=== PATIENT | female | born 1990 | race Caucasian/White ===

== ENCOUNTER 2024-04-02 13:08 | Outpatient (OUT) | payer MEDICAID, SELFPAY ==
--- NOTE | 2024-04-02 13:25 | US_ITS ---
[place] [id number] Patient Name: EVAN FISH MRN: [id number] date: 1990 Sex: F Assigned Patient Location: US Current Patient Location: US Accession/Order Number: [id number] Exam Date: 04/02/2024 13:27 Report Date: 04/02/2024 14:43 At the request of: ROHIT ARRIAGA Procedure: US OB <= 14 weeks fetus EXAMINATION: US OB <= 14 weeks fetus HISTORY: Vaginal Bleeding COMPARISON: No relevant comparison available. FINDINGS: Meehan intrauterine gestation Placenta: Anterior Gestational sac: 6.61 cm CRL: 7.48 cm, 13 weeks 4 days Heart rate: 146 bpm The ovaries are normal in appearance Clinical age: 30 weeks 3 days Clinical BHUPENDRA: 10/05/2024 Ultrasound age: 30 weeks 4 days Ultrasound BHUPENDRA: 10/04/2024 US/US OB <= 14 weeks fetus IMPRESSION: Viable meehan intrauterine gestation measuring 13 weeks 4 days Electronically authenticated by: JAMES BHANDARI Date: 04/02/2024 14:43
== END 2024-04-02 13:09 | disposition home or self-care (01) ==
PROVIDERS: Visit Provider Midwife
DX: O46.93 Antepartum hemorrhage, unspecified, third trimester (principal); Z3A.30 30 weeks gestation of pregnancy
CPT/HCPCS: 76801

== ENCOUNTER 2024-05-15 16:49 | Outpatient (OUT) | payer MEDICAID, SELFPAY ==
--- NOTE | 2024-05-15 | US_ITS ---
[address] [address] Patient Name: EVAN FISH MRN: [id number] date: 1990 Sex: F Assigned Patient Location: US Current Patient Location: Accession/Order Number: [id number] Exam Date: 05/15/2024 17:13 Report Date: 05/16/2024 07:23 At the request of: ROHIT ARRIAGA Procedure: US OB anatomy EXAMINATION: US OB anatomy HISTORY: 2nd trimester Q26.92 COMPARISON: No relevant comparison available. TECHNIQUE: Transabdominal sonographic examination was performed for obstetrical and evaluation. FINDINGS: Number: 1 Heart Rate: 146.74 bpm H.B. /min Amniotic Fluid Volume: Subjectively normal position: Cephalic presentation, variable lie Placental Location: ANTERIOR, the placental edge is 5.6 cm from the internal os Cervix Length: 3.39 cm , closed Normal anatomy: Lateral ventricles, cerebellum, posterior fossa, nose, lips, orbits, four-chamber heart, RVOT, LVOT, diaphragm, stomach, kidneys, abdominal cord insertion, bladder, umbilical arteries, three-vessel cord, spine, extremities BIOMETRY: BPD: 4.81 cm; 20 weeks 4 days; 86.10 % HC: 17.47 cm; 20 weeks 0 days; 62.80 % AC: 15.11 cm; 20 weeks 2 days; 70.60 % FL: 3.38 cm; 20 weeks 4 days; 78.20 % EFW:352.60 g; 89.10 %, 12 ounces FL/AC: 22.36 FL/BPD: 70.21 HC/AC: 1.16 GESTATIONAL AGE: Age by EDC: 19 weeks 4 days BHUPENDRA by EDC: 2024-10-05 Age by current US: 20 weeks 3 days BHUPENDRA by current US: 2024-09-29 US/US OB anatomy IMPRESSION: Normal anatomy scan *Reference: [facility] Practice Guideline for the performance of Obstetric Ultrasound Examinations, February 11, 2007. Electronically authenticated by: JAMES BHANDARI Date: 05/16/2024 07:23
--- OUTSIDE RECORDS SUMMARY | 2024-05-15 16:54 | XMS_ITS | CCD ---
Author Organization [facility] Care Team Providers Care [employer] Name Role Phone REQUEST, DR PACO LISTED Admitting Unavaila ble REQUEST, DR ANTONIO LISTED Attending Unavaila ble REQUEST, DR ANTONIO LISTED Consulting Unavaila ble BRITTANY ., DR STONE Admitting Unavailable BRITTANY ., DR STONE Attending Unavailable BRITTANY ., DR STONE Consulting Unavailable BRITTANY ., DR STONE Admitting Unavailable BRITTANY ., DR STONE Attending Unavailable BRITTANY ., DR STONE Consulting Unavailable PABLO DONG Admitting Unavailable PABLO DONG Attending Unavailable PROVIDENCE, DR JAMES Aquino Consulting Unavailable PABLO DONG Consulting Unavailable Unavailable Primary Care Provider Unavailjohanna e Unallocated , Noms Provider Primary Care Provi helena ROHIT BETHEA Attending Unavailable ROHIT BETHEA Referring Unavailable ROHIT BETHEA Referring Unavailable ROHIT BETHEA Attending Unavailable Medications Current Medications Medication Drug Class(es) Dates Sig (Normalized) Sig (Original) MV-Min-Fe Fum-FA-DHA ( 1 PO) (8 sources) MV-Min- Fe Fum-FA-DHA ( 1 PO) Take by mouth Active Completed/Discontinued Medications Medication Drug Class(es) Dates Sig (Normalized) Sig (Original) ondansetron 8 mg disintegrating oral tablet (8 sources) Serotonin-3 Receptor Antagonist Start: 03-20-2024 End: 05-07-2024 take 1 tablet by mouth every eight hours for nausea ondansetron ODT (Zofran-ODT) 8 MG disintegrating tablet Indications: Nausea/vomiting in Take 1 tablet (8 mg) by mouth every 8 (eight) hours if needed for nausea or vomiting 20 tablet 1 03/20/2024 04/07/2024 Discontinued (Reorder) Problems Problem Classification Problem Date Documented Date Episodic/Chronic Headache; including migraine (4 sources) Headache; including migraine; Translations: [HEADACHE UNSPECIFIED] Onset: 05-15-2022 Immunizations and screening for infectious disease (1 source) Encounter for screening for human papillomavirus (HPV); Translations: [ENC SCREENING HUMAN PAPILLOMAVIRUS] Onset: 07-14-2022 Episodic Other complications of (1 source) Abdominal pain in ; Translations: [Other specified related conditions, first trimester] 03-24-2024 Episodic Other complications of (2 sources) Finding related to ; Translations: [ related conditions, unspecified, second trimester] 04-24-2024 Episodic Other complications of (2 sources) Vomiting of , unspecified; Translations: [Unspecified vomiting of , unspecified as to episode of care or not applicable] 03-20-2024 Episodic Other endocrine disorders (4 sources) Polycystic ovarian syndrome; Translations: [POLYCYSTIC OVARIAN SYNDROME] Onset: 03-27-2022 Chronic Other and delivery including normal (5 sources) Normal ; Translations: [Encounter for supervision of normal first , first trimester] 03-24-2024 Episodic Other screening for suspected conditions (not mental disorders or infectious disease) (4 sources) Encounter for screening for malignant neoplasm of cervix; Translations: [ENC SCREENING MALIG NEOPLASM CERV] Onset: 07-11-2022 Episodic Results Test Name Value Interpretation Reference Range Facility US for pregnancyon TITLE OF EXAM: OB Ultrasound: REASON FOR EXAM: Amenorrhea. TECHNIQUE: Grayscale imaging is performed. Measurements: heart rate: 149 bpm Cervix Length: 2.9 cm BHUPENDRA: 10/05/2024 CLINICAL SUMMARY: A single intrauterine is noted in breech presentation. heart is observed with a heart rate of 149 BPM. Placenta is located anteriorly. Placenta is Grade 0/III Limited study. Full anatomical survey not performed. Dictated and transcribed 03/25/24d This report has been electronically signed and approved by the interpreting radiologist. Lee Robles MD - 03/25/2024 TITLE OF EXAM: OB Ultrasound: REASON FOR EXAM: Amenorrhea. TECHNIQUE: Grayscale imaging is performed. Measurements: heart rate: 149 bpm Cervix Length: 2.9 cm BHUPENDRA: 10/05/2024 CLINICAL SUMMARY: A single intrauterine is noted in breech presentation. heart is observed with a heart rate of 149 BPM. Placenta is located anteriorly. Placenta is Grade 0/III Limited study. Full anatomical survey not performed. Dictated and transcribed 03/25/24d This report has been electronically signed and approved by the interpreting radiologist. [facility] US for pregnancyOrdered By: Lee Yost on 03-25-2024 [facility] Work Phone: US OB LIMITED 1+ FETUSESon 1 05-24-2023 US OB LIMITED 1+ FETUSES TITLE OF EXAM: OB Ultrasound: REASON FOR EXAM: Amenorrhea. TECHNIQUE: Grayscale imaging is performed. Measurements: heart rate: 149 bpm Cervix Length: 2.9 cm BHUPENDRA: 10/05/2024 CLINICAL SUMMARY: A single intrauterine is noted in breech presentation. heart is observed with a heart rate of 149 BPM. Placenta is located anteriorly. Placenta is Grade 0/III Limited study. Full anatomical survey not performed. Dictated and transcribed 03/25/24dpd This report has been electronically signed and approved by the interpreting radiologist. Normal Not Available US for pregnancyon Radiology Study observation (narrative) [facility] US OB < 14 WEEKS EARLYon US OB < 14 WEEKS EARLY TITLE OF EXAM: OB Ultrasound: REASON FOR EXAM: Amenorrhea. TECHNIQUE: Grayscale imaging is performed. Measurements: heart rate: 160 bpm Sac: 5.5 cm CRL: 5.3 cm GA for sonogram: 12.0 wk (11.0-12.9) Cervix Length: 3.7 cm BHUPENDRA: 10/05/2024 CLINICAL SUMMARY: Endovaginal exam was performed. Early intrauterine is seen with positive cardiac activity. Yolk sac is identified and within normal limits. Four chamber heart is observed with a heart rate of 160. Uterus and adnexae: Right ovarian corpus luteum measuring 2.7 x 2.7 x 2.8 cm Limited study. Full anatomical survey not performed. IMPRESSION: LMP is accurate. Dictated and transcribed 03/20/24dpd This report has been electronically signed and approved by the interpreting radiologist. Normal Not Available PAP ACOG PANEL 2: 30 to 65on 07-19-2022 . . Normal [facility] Comment on above: Result Comment: Perf ormed at: WB Performed By: #### [id number] #### [facility] [address] [address] [address] Elise Arboleda Age Gdln ACOG Testing 30-65 Normal [facility] Comment on above: Performed By: #### [id number] #### [facility] [address] [address] [address] Elise Arboleda DIAGNOSIS: Comment Normal [facility] Comment on above: Result Comment: NEGA TIVE FOR INTRAEPITHELIAL LESION OR MALIGNANCY. Performed at: WB Performed By: #### [id number] #### [facility] [address] [address] [address] Elise Arboleda HPV Aptima Negative Normal Negative [facility] Comment on above: Result Comment: This nucleic acid amplification test detects fourteen high-risk HPV types (16,18,31,33,35,39,45,51,52,56,58,59,66,68) without differentiation. Performed at: =G Performed By: #### [id number] #### [facility] [address] [address] [address] Elise Arboleda HPV Genotype Reflex Comment Normal [facility] Comment on above: Result Comment: Crit eria not met, HPV Genotype not performed. Performed at: WB Performed By: #### [id number] #### [facility] [address] [place] [address] Dr. Elise Arboleda Methodology: Comment Normal [facility] Comment on above: Result Comment: This liquid based ThinPrep(R) pap test was screened with the use of an image guided system. Performed at: WB Performed By: #### [id number] #### [facility] [address] [place] [address] Dr. Elise Arboleda Note: Comment Normal [facility] Comment on above: Result Comment: The Pap smear is a screening test designed to aid in the detection of premalignant and malignant conditions of the uterine cervix. It is not a diagnostic procedure and should not be used as the sole means of detecting cervical cancer. Both false-positive and false-negative reports do occur. . Performed at: WB Performed By: #### [id number] #### [facility] [address] [place] [address] Dr. Elise Arboleda Performed by: Comment Normal [facility] Comment on above: Result Comment: Louis De Los Santos, Supervisor [employer] (ASCP) Performed at: WB Performed By: #### [id number] #### [facility] [address] [place] [address] Dr. Elise Arboleda Specimen adequacy: Comment Normal [facility] Comment on above: Result Comment: Sati sfactory for evaluation. Endocervical and/or squamous metaplastic cells (endocervical component) are present. Performed at: WB Performed By: #### [id number] #### [facility] [address] [place] [address] HEAD WO CONon 05-15-2022 CT HEAD WO CON EXAMINATION: CT HEAD WO CON, 05/15/2022 12:37 PM EST HISTORY: HEADACHE COMPARISON: None. TECHNIQUE: CT scan of the head was performed without IV contrast. CT dose reduction technique was used, including Automated Exposure Control. FINDINGS: BRAIN: No edema, hemorrhage, mass, acute infarction, or inappropriate atrophy. CSF SPACES: No hydrocephalus, subarachnoid hemorrhage, or mass. Appropriate for age. SKULL: No fracture, mass, or other significant visible lesion. SINUSES: No significant mucosal thickening or fluid on the limited views. ORBITS: No appreciable abnormality on the limited views. OTHER: Negative IMPRESSION: No acute intracranial abnormality Electronically authenticated by: JAMES BHANDARI Date: 2022-05-15 13:15 Normal [facility] ARNALDO - QUALITATIVEo n 05-10-2022 , QUAL Negative Normal NEGATIVE [facility] Comment on above: Performed By: #### D ATPREG #### [facility] [address] [place] [address] Dr. Elise Arboleda CBC AUTO DIFFon 03-27-2022 BASO # 0.0 103/ul Normal 0.0-0.1 [facility] Comment on above: Performed By: #### C BC #### [facility] [address] [place] [address] Dr. Elise Arboleda Basophils/100 WBC (Bld) 0.6 % Normal 0.2-2.0 [facility] Comment on above: Performed By: #### C BC #### [facility] [address] [place] [address] Dr. Elise Arboleda EO # 0.1 103/ul Normal 0.0-0.7 [facility] Comment on above: Performed By: #### C BC #### [facility] [address] [place] [address] Dr. Elise Arboleda Eosinophils/100 WBC (Bld) 1.6 % Normal 0.9-7.0 [facility] Comment on above: Performed By: #### C BC #### [facility] [address] [place] [address] Dr. Elise Arboleda Erythrocyte distribution width (RBC) [Ratio] 12.3 % Normal 11.0-15.0 [facility] Comment on above: Performed By: #### C BC #### [facility] [address] [place] [address] Dr. Elise Arboleda Hematocrit (Bld) [Volume fraction] 38.4 % Normal 36.0-48.0 [facility] Comment on above: Performed By: #### C BC #### [facility] [address] [place] [address] Dr. Elise Arboleda Hemoglobin (Bld) [Mass/Vol] 12.9 g/dL Normal 12.0-16.0 [facility] Comment on above: Performed By: #### C BC #### [facility] [address] [place] [address] Dr. Elise Arboleda IG # 0.01 10e3/ul Normal 0.00-0.03 [facility] Comment on above: Performed By: #### C BC #### [facility] [address] [place] [address] Dr. Elise Arboleda IG % 0.1 % Normal 0.0-0.5 [facility] Comment on above: Performed By: #### C BC #### [facility] [address] [place] [address] Dr. Elise Arboleda LYMPH # 3.5 103/ul Normal 1.2-3.8 [facility] Comment on above: Performed By: #### C BC #### [facility] [address] [place] [address] Dr. Elise Arboleda Lymphocytes/100 WBC (Bld) 49.4 % Normal 20.5-60.0 [facility] Comment on above: Performed By: #### C BC #### [facility] [address] [place] [address] Dr. Elise Arboleda MANUAL DIFF REQ NO Normal [facility] Comment on above: Performed By: #### C BC #### [facility] [address] [place] [address] Dr. Elise Arboleda MCH (RBC) [Entitic mass] 30.6 pg Normal 26.7-34.0 [facility] Comment on above: Performed By: #### C BC #### [facility] [address] [place] [address] Dr. Elise Arboleda MCHC (RBC) [Mass/Vol] 33.6 g/dL Normal 29.9-35.2 [facility] Comment on above: Performed By: #### C BC #### [facility] [address] [place] [address] Dr. Elise Arboleda MCV (RBC) [Entitic vol] 91.2 fL Normal 81.0-99.0 [facility] Comment on above: Performed By: #### C BC #### [facility] [address] [place] [address] Dr. Elise Arboleda MONO # 0.5 103/ul Normal 0.3-0.8 [facility] Comment on above: Performed By: #### C BC #### [facility] [address] [place] [address] Dr. Elise Arboleda Monocytes/100 WBC (Bld) 6.6 % Normal 1.7-12.0 [facility] Comment on above: Performed By: #### C BC #### [facility] [address] [place] [address] Dr. Elise Arboleda NEUT # 2.9 103/ul Normal 1.4-6.5 [facility] Comment on above: Performed By: #### C BC #### [facility] [address] [place] [address] Dr. Elise Arboleda Neutrophils/100 WBC (Bld) 41.7 % Critically low 43.0-75.0 [facility] Comment on above: Performed By: #### C BC #### [facility] [address] [place] [address] Dr. Elise Arboleda Platelet mean volume (Bld) [Entitic vol] 11.8 fL Normal 9.5-13.5 [facility] Comment on above: Performed By: #### C BC #### [facility] [address] [place] [address] Dr. Elise Arboleda PLT 258 103/ul Normal 150-450 [facility] Comment on above: Performed By: #### C BC #### [facility] [address] [place] [address] Dr. Elise Arboleda RBC 4.21 106/ul Normal 4.20-5.40 [facility] Comment on above: Performed By: #### C BC #### [facility] [address] [place] [address] Dr. Elise Arboleda WBC 7.0 103/ul Normal 4.0-11.0 [facility] Comment on above: Performed By: #### C BC #### [facility] [address] [place] [address] Dr. Elise Arboleda FREE T4on 03-27-2022 Free T4 [Mass/Vol] 1.06 ng/dL Normal 0.76-1.46 [facility] Comment on above: Performed By: #### F T4 #### [facility] [address] [place] [address] Dr. Elise Arboleda GLYCOHEMOGLOBIN A1Con 2021 ADA RECOMMENDATION SEE BELOW Normal [facility] Comment on above: Result Comment: ADA RECOMMENDED LIMIT 4.0 - 6.0 ADA THERAPEUTIC TARGET < 7.0 ACTION SUGGESTED > 7.0 Performed By: #### A 1C #### [facility] [address] [place] [address] Dr. Elise Arboleda Glucose [Mass/Vol] 105 mg/dL Normal [facility] Comment on above: Performed By: #### A 1C #### [facility] [address] [address] [address] Elise Arboleda HbA1c (Bld) [Mass fraction] 5.3 % Normal 4.5-6.2 [facility] Comment on above: Performed By: #### A 1C #### [facility] [address] [place] [address] Dr. Elise Arboleda TSHon 03-27-2022 TSH 0.837 uIU/mL Normal 0.358-3.740 [place] Comment on above: Performed By: #### T SH #### [facility] [address] [place] [address] Dr. Elise Arboleda Vital Signs Date Time Vital Sign Value Performing Clinician Faci lity 04-24-2024 09:43-0500 Body mass index (BMI) [Ratio] 26.96 kg/m2 Rohit Bethea CNM Work Phone: [facility] 04-24-2024 09:43-0500 Body weight 73.48 kg Rohit Bethea CNM Work Phone: [facility] 04-24-2024 09:43-0500 Diastolic blood pressure 80 mm[Hg] Rohit Bethea CNM Work Phone: [facility] 04-24-2024 09:43-0500 Systolic blood pressure 120 mm[Hg] Rohit Bethea CNM Work Phone: [facility] 03-20-2024 15:41-0500 Body mass index (BMI) [Ratio] 27.12 kg/m2 Rohit Bethea CNM Work Phone: [facility] 03-20-2024 15:41-0500 Body weight 73.94 kg Rohit Bethea CNM Work Phone: [facility] Encounters Encounter Date Encounter Type Care Provider Facility Start: 04-24-2024 End: 04-24-2024 Bamboo flowsheet Rohit Bethea CNM Work Phone: [facility] Start: 04-24-2024 End: 04-24-2024 Bamboo flowsheet Rohit L Floro CNM Work Phone: [facility] Start: 04-24-2024 End: 04-24-2024 ambulatory ROHIT L FLORO Not Available Start: 04-24-2024 End: 04-24-2024 Office outpatient visit 15 minutes Rohit L Floro CNM Work Phone: [facility] Comment on above: Encounter for prenat al care of first , second trimester (Primary Dx); related condition in second trimester Start: 04-22-2024 End: 04-22-2024 Telephone encounter Rohit L Floro CNM Work Phone: [facility] Start: 04-02-2024 End: 04-02-2024 Telephone encounter Rohit L Floro CNM Work Phone: [facility] Start: 03-24-2024 End: 03-24-2024 ambulatory ROHIT L FLORO Not Available Start: 03-24-2024 End: 03-24-2024 Telephone encounter Rohit L Floro CNM Work Phone: [facility] Start: 03-20-2024 End: 03-20-2024 ambulatory ROHIT L FLORO Not Available Start: 03-20-2024 End: 03-20-2024 Office outpatient visit 15 minutes Rohit L Floro CNM Work Phone: [facility] Comment on above: GA: 11w4d Start: 03-20-2024 End: 03-20-2024 Bamboo flowsheet Rohit L Floro CNM Work Phone: [facility] Start: 03-20-2024 End: 03-20-2024 Bamboo flowsheet Rohit L Floro CNM Work Phone: [facility] Start: 06-25-2023 Chart abstracting Bertha Alcantara DO Work Phone: [facility] Start: 07-11-2022 End: 07-11-[address] BERTHA ALCANTARA . Facility: Start: 05-15-2022 End: 05-15-2022 ambulatory PABLO Majano LETITIA Facility: Start: 05-10-2022 End: 05-11-2022 ambulatory NONE LISTED REQUEST Facility: Start: 03-27-2022 End: 03-28-[address] BERTHA ALCANTARA . Facility: Plan of Treatment Date Care Activity Detail Author Start: 05-22-2024 End: 05-22-2024 Patient encounter procedure 05/22/2024 9:30 AM EST Routine [facility] [address] [place] [address] Rohit Bethea, KRISTINE[address] [id number] [facility] Start: 04-24-2024 End: 04-24-2025 US for US OB 14+ weeks anatomy scan Imaging Routine related condition in second trimester Expected: 04/24/2024, Expires: 04/24/2025 [facility] Work Phone: Comment on above: Expected: 04/24/2024 , Expires: 04/24/2025 Start: 04-24-2024 End: 04-24-2024 Patient encounter procedure 04/24/2024 9:30 AM EST Routine [facility] [address] [place] [address] Rohit Bet[address] [address] [facility] Start: 03-24-2024 End: 03-24-2025 ABO/Rh ABO/Rh Lab Routine Encounter for supervision of normal first , first trimester Expected: 03/24/2024 (Approximate), Expires: 03/24/2025 [facility] Comment on above: Expected: 03/24/2024 (Approximate), Expires: 03/24/2025 Start: 03-24-2024 End: 03-24-2025 Antibody screen Antibody screen Lab Routine Encounter for supervision of normal first , first trimester Expected: 03/24/2024 (Approximate), Expires: 03/24/2025 [facility] Comment on above: Expected: 03/24/2024 (Approximate), Expires: 03/24/2025 Start: 03-24-2024 End: 03-24-2025 Bacteria identified in Urine by Culture Urine culture Microbiology Routine Encounter for supervision of normal first , first trimester Expected: 03/24/2024 (Approximate), Expires: 03/24/2025 [facility] Comment on above: Expected: 03/24/2024 (Approximate), Expires: 03/24/2025 Start: 03-24-2024 End: 03-24-2025 CBC panel - Blood by Automated count CBC Lab Routine Encounter for supervision of normal first , first trimester Expected: 03/24/2024 (Approximate), Expires: 03/24/2025 [facility] Comment on above: Expected: 03/24/2024 (Approximate), Expires: 03/24/2025 Start: 03-24-2024 End: 03-24-2025 DRUG TOX MONITORIGN 6 W/ CONF,URINE DRUG TOX MONITORIGN 6 W/ CONF,URINE Lab Routine Encounter for supervision of normal first , first trimester Expected: 03/24/2024 (Approximate), Expires: 03/24/2025 [facility] Comment on above: Expected: 03/24/2024 (Approximate), Expires: 03/24/2025 Start: 03-24-2024 End: 03-24-2025 Hemoglobin A1c/Hemoglobin.total in Blood Hemoglobin A1c Lab Routine Encounter for supervision of normal first , first trimester Expected: 03/24/2024 (Approximate), Expires: 03/24/2025 [facility] Comment on above: Expected: 03/24/2024 (Approximate), Expires: 03/24/2025 Start: 03-24-2024 End: 03-24-2025 Hepatitis B virus surface Ag [Presence] in Serum or Plasma by Immunoassay Hepatitis B surface antigen Lab Routine Encounter for supervision of normal first , first trimester Expected: 03/24/2024 (Approximate), Expires: 03/24/2025 [facility] Work Phone: Comment on above: Expected: 03/24/2024 (Approximate), Expires: 03/24/2025 Start: 03-24-2024 End: 03-24-2025 Hepatitis C virus Ab [Presence] in Serum or Plasma by Immunoassay Hepatitis C antibody Lab Routine Encounter for supervision of normal first , first trimester Expected: 03/24/2024 (Approximate), Expires: 03/24/2025 [facility] Comment on above: Expected: 03/24/2024 (Approximate), Expires: 03/24/2025 Start: 03-24-2024 End: 03-24-2025 HIV-1/HIV-2 antigen/antibody combination immunoassay HIV-1 and HIV-2 antibodies Lab Routine Encounter for supervision of normal first , first trimester Expected: 03/24/2024 (Approximate), Expires: 03/24/2025 [facility] Comment on above: Expected: 03/24/2024 (Approximate), Expires: 03/24/2025 Start: 03-24-2024 End: 03-24-2025 Neisseria gonorrhoeae DNA [Presence] in Cervical mucus by STANLYE with probe detection C. trachomatis / N. gonorrhoeae, DNA probe Pathology and Cytology Routine Encounter for supervision of normal first , first trimester Expected: 03/24/2024 (Approximate), Expires: 03/24/2025 [facility] Comment on above: Expected: 03/24/2024 (Approximate), Expires: 03/24/2025 Start: 03-24-2024 End: 03-24-2025 Reagin Ab [Presence] in Serum by RPR RPR Lab Routine Encounter for supervision of normal first , first trimester Expected: 03/24/2024 (Approximate), Expires: 03/24/2025 [facility] Comment on above: Expected: 03/24/2024 (Approximate), Expires: 03/24/2025 Start: 03-24-2024 End: 03-24-2025 Rubella antibody, IgG Rubella antibody, IgG Lab Routine Encounter for supervision of normal first , first trimester Expected: 03/24/2024 (Approximate), Expires: 03/24/2025 [facility] Comment on above: Expected: 03/24/2024 (Approximate), Expires: 03/24/2025 Start: 03-24-2024 End: 03-24-2025 TSH W/REFLEX TO FT4 TSH W/REFLEX TO FT4 Lab Routine Encounter for supervision of normal first , first trimester Expected: 03/24/2024 (Approximate), Expires: 03/24/2025 [facility] Comment on above: Expected: 03/24/2024 (Approximate), Expires: 03/24/2025 Start: 03-24-2024 End: 03-24-2025 URINALYSIS MICROSCOPIC URINALYSIS MICROSCOPIC Lab Routine Encounter for supervision of normal first , first trimester Expected: 03/24/2024 (Approximate), Expires: 03/24/2025 [facility] Comment on above: Expected: 03/24/2024 (Approximate), Expires: 03/24/2025 Start: 03-20-2024 End: 03-20-2024 Professional / ancillary services management 03/20/2024 4:15 PM EST Ancillary Procedure [facility] [address] [place] [id number] [facility] Start: 01-13-2024 Influenza vaccination Influenza Vacc ine (#1) [facility] Start: 07-16-2023 End: 07-16-2023 Patient encounter procedure 07/16/2023 10:00 AM EST [facility] [address] [place] [id number] Bertha Alcantara DO [address] [place] [address] [facility] Start: 10-06-2021 Screening for malign ant neoplasm of cervix [facility] Start: 10-06-2012 Screening for malign ant neoplasm of cervix Pap Smear [facility] Payers Date Payer Category [facility]ayer [facility] [id number] 2024 Medicaid [id number] 1991 Unknown [id number] 1991 Unknown [id number] 1991 Unknown [id number] 1991 Unknown [id number] 1959 Self-pay 1959 Unknown [id number] 1959 Unknown [id number] Unknown [id number] Social History Date Type Detail Facility Tobacco smoking stat [facility] Tobacco smoking consumption unknown [facility] Start: 1990 Sex Assigned At Not on file [facility] Start: 03-20-2024 Gender identity Not on file [facility] Start: 03-20-2024 Tobacco smoking stat [facility] Never smoked tobacco [facility] Start: 03-20-2024 Tobacco use and exposure Smokeless t obacco non-user [facility] Start: 03-20-2024 Alcoholic beverage intake Ex-drinker (finding) [facility] Start: 03-20-2024 History of Social function [facility] Start: 01-13-2024 [facility] Clinical Notes 03-20-2024 to 04-24-2024 Rohit Bethea CNM - 04/24/2024 9:30 AM ESTTelephone Encounter - Cherry Roman - 04/22/2024 8:21 AM ESTTelephone Encounter - Cherry Roman - 04/22/2024 8:21 AM EST Note Date & Type Note Facility 04-24-2024 History of Presen t illness Narrative Subjective No chief complaint on file. Loretta Tesfaye is a 33 y.o. at 16w4d with a working estimated date of delivery of 10/05/2024, by Last Menstrual Period who presents for a routine visit. She denies vaginal bleeding, leakage of fluid, decreased movements, or contractions. OB History Para Term AB Living 1 SAB IAB Ectopic Multiple Live Births # Outcome Date GA Lbr Rocael/2nd Weight Sex Type Anes PTL Lv 1 Current Her is complicated by: hyperemesis The following portions of the chart were reviewed this encounter and updated as appropriate: Objective Physical Exam weight: 162 lb Expected Total Weight Gain: 15 lb-25 lb Pregravid BMI: 27.12 BP: 120/80 Urine protein-negative Urine glucose-negative Labs: reviewed Imaging Assessment/Plan Diagnoses and all orders for this visit: Encounter for care of first , second trimester related condition in second trimester - US OB 14+ weeks anatomy scan; Future Continue vitamin. Labs reviewed. Rhogam labs done today GTT at 28 weeks Follow up in 4 weeks for a routine visit. documented in this encounter [facility] 04-22-2024 Telephone encounter Note Form atting of this note might be different from the original. Pt has a Pressable appt at 9:30 and wanted to know if you could give her a proof of letter. She misplaced the one that [facility] gave her. But she is going to also call them to see if they kept a copy. [facility] 04-22-2024 Miscellaneous Notes Formattin g of this note might be different from the original. Pt has a Pressable appt at 9:30 and wanted to know if you could give her a proof of letter. She misplaced the one that [facility] gave her. But she is going to also call them to see if they kept a copy. documented in this encounter [facility] 04-02-2024 Telephone encounter Note Form atting of this note might be different from the original. Pt calling this am worried, She is 13weeks and woke up Like spotting bleeding , it happened last week and lasted about a day and 1/2. Last time it was heavier than today. Her bellybutton feels tender, but no sharp pains, no back pain. She found the bleeding when she wiped. [phone] [facility] 04-02-2024 Miscellaneous Notes Formattin g of this note might be different from the original. Pt calling this am worried, She is 13weeks and woke up Like spotting bleeding , it happened last week and lasted about a day and 1/2. Last time it was heavier than today. Her bellybutton feels tender, but no sharp pains, no back pain. She found the bleeding when she wiped. [phone] documented in this encounter [facility] 03-24-2024 Note Addended by: LINDA QUINONES on: 03/24/2024 11:54 AM Modules accepted: Orders [facility] 03-24-2024 Miscellaneous Notes Addended by: LINDA REYES on: 03/24/2024 11:54 AM Modules accepted: Orders Addended by: LINDA REYES on: 03/24/2024 11:51 AM Modules accepted: Orders Labs ordered Patient is calling this morning looking for lab orders from last week. She was told to come in and there are not any orders in her chart. She is about 12 weeks . Also last night for about an hour- she had intense stomach and back pain- she thought that she was having a miscarriage. She is feeling better this morning- still nauseated. Please advise pt. Thank you. documented in this encounter [facility] 03-24-2024 Note Addended by: LINDA QUINONES on: 03/24/2024 11:51 AM Modules accepted: Orders [facility] 03-24-2024 Telephone encounter Note Form atting of this note might be different from the original. Labs ordered [facility] 03-24-2024 Telephone encounter Note Form atting of this note might be different from the original. Patient is calling this morning looking for lab orders from last week. She was told to come in and there are not any orders in her chart. She is about 12 weeks . Also last night for about an hour- she had intense stomach and back pain- she thought that she was having a miscarriage. She is feeling better this morning- still nauseated. Please advise pt. Thank you. [facility] 03-20-2024 History of Presen t illness Narrative Subjective Loretta Tesfaye is a 33 y.o. at 11w4d with a working estimated date of delivery of 10/05/2024, by Last Menstrual Period who presents for an initial visit. This is planned. 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 OB History Para Term AB Living 1 SAB IAB Ectopic Multiple Live Births # Outcome Date GA Lbr Rocael/2nd Weight Sex Type Anes PTL Lv 1 Current Her is complicated by: nausea and vomiting Patient referred by [facility] History Last Pap 07/11/22 The following portions of the chart were reviewed this encounter and updated as appropriate: Review of Systems History obtained from the patient Objective Physical Exam weight: 163 lb Expected Total Weight Gain: 15 lb-25 lb Pregravid BMI: 27.12 Urine protein-negative Urine glucose-negative Labs Assessment/Plan Diagnoses and all orders for this visit: Nausea/vomiting in Blue education folder given. Patient educated on safe medication list. Genetic testing information given. Discussed the do's and don'ts in the blue folder. We discussed labs and what we draw and what we are testing for. Patient is also informed that we do a urine drug test. Patient also given office phone number and [facility] number to call in case of an emergency or after hours needs. PVU and all questions answered. We did discuss place of delivery. Patient [facility] services unless an emergency and they need to go to the closest ER. We can make other arrangements possibly if patient would like to deliver at another facility but I did explain I am now at [place] 100% of the time and would like to do all deliveries there. documented in this encounter [facility] Evaluation note Diagnosis Encounter for supervision of normal first , first trimester Abdominal pain during in first trimester Abdominal pain during in first trimester [facility] Diagnosis Encounter for care of first , second trimester- Primary related condition in second trimester documented in this encounter [facility]* Diagnosis Nausea/vomiting in - Primary Unspecified vomiting of , unspecified as to episode of care Encounter for supervision of other normal , second trimester documented in this encounter [facility] Summary Purpose Family History No Family History Records FoundNo Family History Records Found Advance Directives No Advanced Directives Records FoundNo Advanced Directives Records Found Additional Source Comments INFORMATION SOURCE (unrecogn ized section and content) DATE CREATED AUTHOR 07/19/2022 [facility] DATE CREATED AUTHOR AUTHOR'S ORGANIZ ATION 04/29/2024 [facility] Specialists [facility] Care Teams (unrecognized sec tion and content) College Athlete Relationship Specialty Start Date End Date Unallocated, Noms Provider[place] [address] PCP - General Family Medicine 04/24/24 College Athlete Relationship Specialty Start Date End Date Unallocated, Nomsimone Felipe MD [address] [place] [address] PCP - General Family Medicine 04/24/24 FOR RECORDS PERTAINING TO PATIENTS WHO ARE OR HAVE BEEN ENROLLED IN A CHEMICAL DEPENDENCY/SUBSTANCEABUSE PROGRAM, SOME INFORMATION MAY BE OMITTED. This clinical summary was aggregated from multiple sources. Caution should be exercised in using it in the provision of clinical care. This summary normalizes information from multiple sources, and as a consequence, information in this document may materially change the coding, format and clinical context of patient data. In addition, data may be omitted in some cases. CLINICAL DECISIONS SHOULD BE BASED ON THE PRIMARY CLINICAL RECORDS. [facility] [employer] [facility]. provides no warranty or guarantee of the accuracy or completeness of information in this document.
== END 2024-05-15 16:50 | disposition home or self-care (01) ==
PROVIDERS: Visit Provider Midwife
DX: O26.92 Pregnancy related conditions, unspecified, second trimester (principal); Z3A.20 20 weeks gestation of pregnancy
CPT/HCPCS: 76805

== ENCOUNTER 2024-10-06 11:58 | Inpatient (IN) | payer MEDICAID, SELFPAY ==
--- OUTSIDE RECORDS SUMMARY | 2024-09-22 16:00 | XMS_ITS | Encounter Summary ---
Author Organization [facility] Address [address] [place] [address] Care Team Providers Care Orthophotography Technician Name Role Phone Unallocated, Noms Provider Primary Care Provi helena Encounter Details Date Type Department Care Team (Latest Contact Info) Description 09/22/2024 4:00 PM EDT Routine [facility] [address] [place] [id number] Kelin Bethea CNM [address] [place], [place] [phone] Encounter for care of first , third trimester (Primary Dx) Social History Tobacco Use Types Packs/Day Years Used Date Smoking Tobacco: Never Smokeless Tobacco: Never Alcohol Use Standard Drinks/Week Comments Not Currently 0 (1 standard drink = 0.6 oz pur e alcohol) Estimated Date of Delivery Comme nts Yes 10/05/2024 Based on last me nstrual period of 12/30/2023 (Exact Date) Sex and Gender Information Value Date Recorded Sex Assigned at Not on file Legal Sex Female 11:47 PM EDT Gender Identity Not on file Sexual Orientation Not on file documented as of this encounter Last Filed Vital Signs Vital Sign Reading Time Taken Comments Blood Pressure 110/70 09/22/2024 4:07 PM EDT Pulse - - Temperature - - Respiratory Rate - - Oxygen Saturation - - Inhaled Oxygen Concentration - - Weight 76.7 kg (169 lb) 09/22/2024 4:07 PM EDT Height - - Body Mass Index 28.12 07/11/2022 12:00 PM EST documented in this encounter Progress Notes * Kelin Bethea CNM - 09/22/2024 4:00 PM EDT Subjective No chief complaint on file. Loretta Tesfaey is a 33 y.o. at 38w1d with a working estimated date of delivery of 10/05/2024, by Last Menstrual Period who presents for a routine visit. She denies vaginal bleeding, leakage of fluid, decreased movements, or contractions. OB History Para Term AB Living 1 SAB IAB Ectopic Multiple Live Births # Outcome Date GA Lbr Rocael/2nd Weight Sex Type Anes PTL Lv 1 Current Her is complicated by: No problems Objective Physical Exam Weight: 169 lb Expected Total Weight Gain: 15 lb-25 lb Pregravid BMI: 27.12 BP: 110/70 Urine protein Urine glucose Assessment/Plan Diagnoses and all orders for this visit: Encounter for care of first , third trimester Patient did refuse to do the 1 hour glucose testing and agreed to check her blood sugars for 2 weeks instead of drinking the 50g glucose testing. She was prescribed a glucometer and sent to pharmacy.She did state she checked her blood sugars for two weeks. After that she no showed for an appt and then rescheduled. Today she states she did document them for 2 weeks and she will email them to us. Continue vitamin. Labs reviewed. GBS positive Expected mode of delivery Follow up in 1 week for a routine visit. documented in this encounter Plan of Treatment Upcoming Encounters Date Type Department Care Team (Late st Contact Info) Description 2024 9:30 AM EDT Routine [facility] [address] [place] [address] Kelin Bethea CNM [address] [place], [place] [phone] documented as of this encounter Visit Diagnoses Diagnosis Encounter for care of first , third trimester- Primary documented in this encounter Care Teams Orthophotography Technician Relationship Specialty Start Date End Date Unallocated, Noms Matteo, [place] [address] PCP - General Family Medicine 12/12/24 documented as of this encounter
--- OUTSIDE RECORDS SUMMARY | 2024-09-22 16:05 | XMS_ITS ---
Author Name Auto Generated Organization [facility] Care Team Providers Care Flight Attendant Name Role Phone ROHIT ARRIAGA Attending Unavailable FLORO, ROHIT Rider Referring Unavailable FLORO, ROHIT L Attending Unavailable FLORO, ROHIT L Attending Unavailable FLORO, ROHIT L Attending Unavailable FLORO, ROHIT L Attending Unavailable FLORO, ROHIT L Referring Unavailable FLORO, ROHIT L Referring Unavailable FLORO, ROHIT L Attending Unavailable FLORO, ROHIT L Attending Unavailable PROBLEMS No Problem Records Found PROCEDURES No Procedure Records Found RESULTS US OB FOLLOW UP TRANSABDOMINAL APPROACH Observed: 08/08/2024 10:59 AM Status: F Source: [facility] EPIC EXAM: OB Ultrasound: REASON FOR EXAM: Routine growth COMPARISON: 05/15/2024, 04/02/2024 TECHNIQUE: Grayscale, color Doppler and M-mode Doppler imaging is performed. FINDINGS: heart rate: 136 bpm JOSI: 14.5 cm (8.7 - 24.1) BPD: 8.1 cm HC: 29.3 cm AC: 27.9 cm FL: 6.2 cm GA for sonogram: 31.9 wk (29.4 - 34.3) Cervix length: 4.0 cm BHUPENDRA: 10/05/2024 Weight Estimate: Weight: 1901 gm / 4 lbs, 3 oz (1624 - 2179 gm) Hadlock Normal: 1901 gm (1578 - 2224 gm) Hadlock Wt%: 50% for 31.7 wks GROWTH ONLY: Routine LMP: 12/30/2023 Age by LMP: 31w5d BHUPENDRA by LMP: 10/05/2024 Gestation: Single Position: Cephalic Placental Location: Anterior Placental Grade: 1 Somatic Movement: Yes Cervical Length: 4.0 cm Heart Rate: 136 bpm JOSI: 14.5 cm = 51% IMPRESSION: Single live intrauterine gestation in cephalic position. Estimated at 31.9 weeks. This is concordant with provided clinical dates and prior ultrasound. Dictated and transcribed 08/08/2024/ This report has been electronically signed and approved by the interpreting radiologist. US OB LIMITED 1+ FETUSES Observed: 03/24 3:48 PM Status: F Source: [facility] TITLE OF EXAM: OB Ultrasound : REASON FOR EXAM: Amenorrhea. TECHNIQUE: Grayscale imaging [...] signed and approved by the interpreting radiologist. US OB < 14 WEEKS EARLY Observed: 024 3:53 PM Status: F Source: [facility] TITLE OF EXAM: OB Ultrasound : REASON FOR EXAM: Amenorrhea. TECHNIQUE: Grayscale imaging [...] signed and approved by the interpreting radiologist. ALLERGIES No Allergies Records Found ENCOUNTERS ADMIT/DISCHARGE ACCOUNT NUMBER ADMITTING ENCOUNTER CLASS LOCATION SOURCE 09/22/2024/ 5 [id number] Ambulatory Building:[facility] 09/08/2024/ 5 [id number] Ambulatory Building:[facility] 08/20/2024/ 5 [id number] Ambulatory Building:[facility] EPIC 08/08/2024/ 5 [id number] Ambulatory Building:[facility] EPIC 07/10/2024/ 5 [id number] Ambulatory Building:[facility] EPIC 05/22/2024/ 5 [id number] Ambulatory Building:[facility] EPIC 04/24/2024/ 4 [id number] Ambulatory Building:[facility] EPIC 03/24/2024/ 4 [id number] Ambulatory Building:[facility] EPIC 03/20/2024/ 4 [id number] Ambulatory Building:[facility] EPIC 03/20/2024/ 4 [id number] Ambulatory Building:[facility] EPIC PAYERS ENCOUNTER GUARANTOR PAYER SUBSCRIBER SOURCE 09/22/2024 EVAN BAILEYB: [id number], [place] [address]Col: (HP) Primary Insurance:[employer] MEDICAID [facility] Number: [id number] ve Date:2024-06-14 EVAN BAILEYB: [id number], [place] [address] [facility] EPIC 09/08/2024 EVAN BAILEYB: [id number], [place] [address]Gxx: (HP) Primary Insurance:[employer] MEDICAID [facility] Number: [id number] ve Date:2024-06-14 EVAN RANGEL: [id number], [place] [address] [facility] EPIC 08/20/2024 EVAN BAILEYB: [id number], [place] [address]Oob: (HP) [place]: [id number] ve Date:2024-01-13 EVAN RANGEL: [id number], [place] [address] [facility] EPIC 08/08/2024 EVAN BAILEYB: [id number], [place] [address]Nxx: (HP) [place]: [id number] ve Date:2024-01-13 EVAN BAILEYB: [id number], [place] [address] [facility] EPIC 07/10/2024 EVAN BAILEYB: [id number], [place] [address]Rbx: (HP) [place]: [id number] ve Date:2024-01-13 EAVN BAILEYB: [id number], [place] [address] [facility] EPIC 05/22/2024 EVAN RANGEL: [id number], [place] [address]Ury: (HP) [place]: [id number] ve Date:2024-01-13 EVAN RANGEL: [id number], [place] [address] [facility] EPIC 04/24/2024 EVAN RANGEL: [id number], [place] [address]Zjt: (HP) [place]: [id number] ve Date:2024-01-13 EVAN BAILEYB: [id number] [id number], [place] [address] [facility] EPIC
[2024-10-06] VITALS (61 sets, daily range): BP systolic 88–159; BP diastolic 47–95; PULSE 88–133; TEMP 37.1–37.2; O2SAT 96–98
--- OUTSIDE RECORDS SUMMARY | 2024-10-06 12:01 | XMS_ITS | Encounter Summary ---
Author Organization [facility] Address [address] [place] [address] Care Team Providers Care Apprentice Painter Neckties Name Role Phone Unallocated, Noms Provider Primary Care Provi helena Encounter Details Date Type Department Care Team (Late st Contact Info) Description 09/22/2024 Bamboo flowsheet [facility] [address] [place] [address] Kelin Bethea, KRISTINEM [address] [place], [place] [phone] Social History Tobacco Use Types Packs/Day Years [...] on file documented as of this encounter Plan of Treatment Upcoming Encounters Date Type Department Care Team (Late st Contact Info) Description 2024 9:30 AM EDT Routine [facility] [address] [place] [address] Kelin Bethea, KRISTINEM [address] [place], [place] [phone] documented as of this encounter Visit Diagnoses Not on filedocumented in this encounter Care Teams Apprentice Painter Neckties Relationship Specialty Start Date End Date Unallocated, [place] [address] PCP - General Family Medicine 04/24/24 documented as of this encounter
--- OUTSIDE RECORDS SUMMARY | 2024-10-06 12:01 | XMS_ITS | Clinical Summary ---
Author Organization [facility] Healthcare Address [address] [place] [address] Care Team Providers Care Front Window Cashier Name Role Phone Unallocated, Noms Provider Primary Care Provi helena Allergies No known active allergies Medications MV-Min-Fe Fum-FA-DHA ( 1 PO) Take by mouth Active Blood Glucose Monitoring Suppl (D-Care Glucometer) w/Device kitIndications: Screening for diabetes mellitus (DM) 1 each by In Vitro route in the morning and 1 each at noon and 1 each in the evening and 1 each before bedtime. Take with meals. Please fill whatever insurance will cover with lancets and test strips. 1 kit 2 Active Encounters Date Type Department Care Team Description 09/22/2024 4:00 PM EDT Routine [facility]NR OB [address] [place] [address] Kelin Bethea CNM Encounter for care of first , third trimester (Primary Dx) 09/22/2024 Bamboo flowsheet [facility] [address] [place] [address] Kelin Bethea CNM 09/08/2024 5:30 PM EDT Routine [facility] [address] [place] [address] Kelin Bethea CNM Encounter for care of first , third trimester (Primary Dx); screening for streptococcus B; related condition in third trimester 09/08/2024 Bamboo flowsheet [facility] [address] [place] [address] Kelin Bethea CNM 08/20/2024 4:30 PM EDT Routine [facility] [address] [place] [phone] Kelin Bethea CNM Screening for diabetes mellitus (DM) (Primary Dx); Encounter for care of first , third trimester 08/20/2024 Bamboo flowsheet [facility] [address] [place] [address] Kelin Bethea CNM 08/08/2024 11:00 AM EDT Ancillary Procedure [facility] ULTRASOUND [address] [facility] [address] [place] [address] related condition in third trimester 08/08/2024 Travel 07/10/2024 4:30 PM EST Routine [facility] [address] [place] [phone] Kelin Bethea CNM Screening for iron deficiency anemia; Screening for diabetes mellitus (DM); related condition in third trimester 07/10/2024 Bamboo flowsheet [facility] OB [address] [facility] [phone] Kelin Bethea CNM from Last 3 Months Family History Medical History Relation Name Comments Diabetes Father Heart failure Father Stroke Father CVA ( cerebral infarction) Stroke Paternal Grandfather Lupus Paternal Grandmother Deviated septum Sibling Relation Name Status Comments Father Mother Alive Paternal Grandfather Paternal Grandmother Sibling Social History Tobacco Use Types Packs/Day Years Used Date Smoking Tobacco: Never Smokeless Tobacco: Never Tobacco Cessation:Counseling Given: Not Answered Alcohol Use Standard Drinks/Week Comments Not Currently [...] on file Sexual Orientation Not on file Last Filed Vital Signs Vital Sign Reading Time Taken Comments Blood Pressure 110/70 09/22/2024 4:07 PM EDT Pulse - - Temperature - - Respiratory Rate - - Oxygen Saturation - - Inhaled Oxygen Concentration - - Weight 76.7 kg (169 lb) 09/22/2024 4:07 PM EDT Height 165.1 cm (5' 5 ) 07/11/2022 12:00 PM EST Body Mass Index 28.12 07/11/2022 12:00 PM EST Plan of Treatment Upcoming Encounters Date Type Department Care Team (Late st Contact Info) Description 2024 9:30 AM EDT Routine [facility] [address] [place] [address] Kelin Bethea, KRISTINEM [address] [place], [place] [id number] Health Maintenance Due Date Last Done Comments Pap Smear 10/06/2012 Cervical Cancer Screening 10/06/2021 HPV/Cotest 10/06/2021 Influenza Vaccine (Season Ended) 2025 Procedures Procedure Name Priority Date/Time Associated Diagnosis Comments STREPTOCCOUS, GROUP B CULTURE Routine 09/09/2024 7:54 AM EDT screening for streptococcus B OB FOLLOW UP TRANSABDOMINAL APPROACH Routine 08/08/2024 11:44 AM EDT related condition in third trimester from Last 3 Months Results * (ABNORMAL) STREPTOCCOUS, GROUP B CULTURE (09/09/2024 7:54 AM EDT) [facility] MICRO NUMBER [id number] [facility] SPECIMEN QUALITY Adequate [facility] SOURCE VAGINAL/ANOR ECTAL [facility] STATUS FINAL [facility] ISOLATE 1 SEE NOTE(A) [facility] Comment: Group B Streptococcus isolated Beta-hemolytic streptococci are predictably susceptible to Penicillin and other beta-lactams. Susceptibility testing not routinely performed. Please contact the laboratory within 3 days if susceptibility testing is desired. COMMENT SEE NOTE [facility] Comment: Note per CDC guidelines optimal recovery is achieved by swabbing both the lower vagina and rectum (through the anal sphincter). 09/09/2024 7:54 AM EDT 09/09/2024 7:54 AM EDT Narrative Resulting Agency Comment Performing Organization Information Site ID: [id number] Name: [facility] Address: [address] , [address] [place] [address] Director: Gregorio Yates MD us Kelin Bethea CNM LAB BODY FLUIDS AND STOOLS O RDERABLES Final Result [facility] * US OB follow up transabdominal approach (08/08/2024 11:44 AM EDT) Anatomical Region Laterality Modality Body Ultrasound 08/08/2024 6:39 PM EDT Narrative 08/08/2024 6:39 PM EDT EXAM: OB Ultrasound: REASON FOR EXAM: Routine [...] signed and approved by the interpreting radiologist. Procedure Note Lee Yost MD - 08/08/2024 EXAM: OB Ultrasound: REASON FOR EXAM: Routine growth COMPARISON: 05/15/2024, 04/02/2024 TECHNIQUE: Grayscale, color Doppler and M-mode Doppler imaging isperformed. FINDINGS: heart rate: 136 bpm JOSI: 14.5 [...] IMPRESSION: Single live intrauterine gestation in cephalic position.Estimated at 31.9 weeks. This is concordant with provided clinical datesand prior ultrasound. Dictated and transcribed 08/08/2024/tm This report has been electronically signed and approved by theinterpreting radiologist. us Kelin Bethea CNM IMG OB US PROCEDURES Final R esult from Last 3 Months Insurance [place] [employer] [place] Care Teams Front Window Cashier Relationship Specialty Start Date End Date Unallocated, Noms MD Matte[address] [place] [address] PCP - General Family Medicine 04/24/24
--- OUTSIDE RECORDS SUMMARY | 2024-10-06 12:01 | XMS_ITS | Encounter Summary ---
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 Role Phone Unallocated, Noms Provider Primary Care Provi helena Encounter Details Date Type Department Care Team (Late st Contact Info) Description 04/02/2024 Clinisync Result Encounter [facility] External Department Unsolicited Rohit Bethea CNM [address] [place] [address] Social History Tobacco Use Types Packs/Day Years [...] AM EDT Routine [facility] OB [address] [place] [address] Rohit Bethea CNM [address] [place], [place] [phone] documented as of this encounter Procedures Procedure Name Priority Date/Time Associated Diagnosis Comments US OB L= 14 WEEKS FETUS 04/02/2024 2:43 PM EST documented in this encounter Results * US OB L= 14 WEEKS FETUS (04/02/2024 2:43 PM EST) Anatomical Region Laterality Modality Other 04/02/2024 2:43 PM EST Narrative 04/02/2024 2:45 PM EST [address] [address] Ultrasound Report Signed Patient: EVAN TESFAYE MR#: [id number] : 1990 Acct:[id number] Age/Sex: 33 / F ADM Date: 04/02/24 Loc: US Attending Dr: ROHIT BETHEA APRN, CNM Ordering Physician: ROHIT BETHEA APRN, CNM Date of Service: 04/02/24 Procedure(s): US OB <= 14 weeks fetus Accession Number(s): [id number] cc: ROHIT BETHEA APRN, CNM; Physician,Non-Staff M.DAyleen [address] [place] [address] Patient Name: EVAN TESFAYE MRN: [id number] date: 1990 Sex: F Assigned Patient Location: US Current Patient Location: US Accession/Order Number: [id number] Exam Date: 04/02/2024 13:27 Report Date: 04/02/2024 14:43 At the request of: ROHIT BETHEA Procedure: US OB <= 14 weeks fetus EXAMINATION: US OB <= 14 weeks fetus HISTORY: Vaginal Bleeding COMPARISON: No relevant comparison available. FINDINGS: Meehan intrauterine gestation Placenta: Anterior Gestational sac: 6.61 cm CRL: 7.48 cm, 13 weeks 4 days Heart rate: 146 bpm The ovaries are normal in appearance Clinical age: 30 weeks 3 days Clinical BHUPENDRA: 10/05/2024 Ultrasound age: 30 weeks 4 days Ultrasound BHUPENDRA: 10/04/2024 US/US OB <= 14 weeks fetus IMPRESSION: Viable meehan intrauterine gestation measuring 13 weeks 4 days Electronically authenticated by: JAMES BHANDARI Date: 04/02/2024 14:43 Dictated By: James Bhandari M.D. Signed By: 04/02/241444 DD/ 42 TD/TT: Dictating Machine Typist: Procedure Note Radiology, Radiologist, MD - 04/02/2024 [place] [address] Ultrasound Report Signed Patient: EVAN TESFAYE MMR#: [id number] : 1990Acct:[id number] Age/Sex: 33 / FADM Date: 04/02/24 Loc: US Attending Dr: ROHIT BETHEA APRN, CNM Ordering Physician: ROHIT BETHEA APRN, CNM Date of Service: 04/02/24 Procedure(s): US OB <= 14 weeks fetus Accession Number(s): [id number] cc: ROHIT BTEHEA APRN, CNM; Physician,Non-Staff M.DAyleen [address] [place] [id number] Patient Name: EVAN TESFAYE MRN: [facility]:[id number] date: 1990 Sex: F Assigned Patient Location: US Current Patient Location: US Accession/Order Number: [id number] Exam Date: 04/02/2024 13:27 Report Date: 04/02/2024 14:43 At the request of: ROHIT BETHEA Procedure: US OB <= 14 weeks fetus EXAMINATION: US OB <= 14 weeks fetus HISTORY: Vaginal Bleeding COMPARISON: No relevant comparison available. FINDINGS: Meehan intrauterine gestation Placenta: Anterior Gestational sac: 6.61 cm CRL: 7.48 cm, 13 weeks 4 days Heart rate: 146 bpm The ovaries are normal in appearance Clinical age: 30 weeks 3 days Clinical BHUPENDRA: 10/05/2024 Ultrasound age: 30 weeks 4 days Ultrasound BHUPENDRA: 10/04/2024 US/US OB <= 14 weeks fetus IMPRESSION: Viable meehan intrauterine gestation measuring 13 weeks 4 days Electronically authenticated by: JAMES BHANDARI Date: 04/02/2024 14:43 Dictated By: James Bhandari M.D. 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
[2024-10-06] MEDS: LACTATED RINGER'S SOLUTION 1,000 ML 999 ML IV (12:49)
[2024-10-06] MEDS: PENICILLIN G POTASSIUM 5,000,000 UNIT in 0.9 % SODIUM CHLORIDE 100 ML 200 UNIT IV (13:06)
[2024-10-06 13:28] LABS: Hemoglobin 11.3 g/dL (12.0-16.0); Mean Corpuscular HGB Conc 34.2 g/dL (29.9-35.2); Mean Corpuscular Hemoglobin 29.1 pg (26.7-34.0); Mean Corpuscular Volume 85.1 fL (81.0-99.0); Mean Platelet Volume 13.1 fL (9.5-13.5); Platelet Count 293 10^3/uL (150-450); Red Blood Count 3.88 10^6/uL (4.20-5.40); Red Cell Distribution Width 13.4 % (11.0-15.0); White Blood Count 19.8 10^3/uL (4.0-11.0)
[2024-10-06] MEDS: EPHEDRINE SULFATE 50 MG/ML VIAL IV (13:53)
[2024-10-06] MEDS: LACTATED RINGER'S SOLUTION 1,000 ML 125 ML IV ×2 (14:06→19:28)
[2024-10-06] MEDS: ROPIVACAINE HCL/PF 400 MG/200 ML PREMIX 6 MG EPIDURAL (14:06)
--- NOTE | 2024-10-06 14:40 | PC.NURSE ---
Addendum entered by Tara Ng 10/06/24 20:23: Pt plan; pt refusing all medications for when born. Education provided. Pt requests to keep placenta and delayed cord clamping until white. Original Note: 1205- Pt arrives to [facility] with support people and doulas x2 via wheelchair. Pt states she has been laboring since yesterday morning and arrives requesting epidural. Pt states she feels her cxt's q5min. Pt denies leaking of fluid or vaginal bleeding. Pt states she is unable to void at this time. Pt transported to bed at this time. Pt hx and plan discussed. Pt breathing through cxt's. Pt consents to cervical exam and monitoring.
[2024-10-06] MEDS: ONDANSETRON PF 4 MG/2 ML VIAL IV (14:57)
--- NOTE | 2024-10-06 15:07 | PM.OBHP ---
OB - H&P: HPI History of Present Illness Chief complaint: CONTRACTIONS R/O LABOR 40WKS : 1 Para: 0 Gestational age based on last menstrual period: 40.1 History of Present Dating criteria: LMP confirmed by 1st trimester US care: other (patient has missed, rescheduled and no show appts off and on throughout care ) Ultrasounds: normal 1st trimester US and normal mid trimester US complications comment: acid reflux, hyperemesis in early Medical complications OB: none Labs Blood type: O (+) positive Rubella: immune RPR/VDLR: nonreactive GBS status: positive HBsAG: negative Review of Systems ROS Status of ROS: 10 or more systems reviewed and unremarkable except as noted in history and below Gastrointestinal: Reports: heartburn Meds Home Medications and Allergies Allergies Allergy/AdvReac Type Severity Reaction Status Date / Time No Known Drug Allergies Allergy Verified 10/06/24 12:33 Exam Constitutional Vital Signs, click to edit/add: Last Vital Signs Temp 98.8 F 10/06/24 15:00 Pulse 133 H 10/06/24 15:00 BP 123/74 10/06/24 15:00 Documenting provider has reviewed patient's vital signs: yes Common normals: no apparent distress, average body habitus, oriented x3, no limitations, healthy appearing, alert and well nourished General appearance: cooperative Orientation/consciousness: Yes awake, Yes oriented to person, Yes oriented to place and Yes oriented to time HENCA Common normals: normocephalic Eye Common normals: EOMs intact bilaterally General eye: normal appearance of both eyes Neck & C-Spine Common normals: full ROM and no lymphadenopathy General: normal visual inspection Lymph Lymphatic: no lymphadenopathy noted Respiratory Common normals: normal respiratory effort Effort & inspection: able to speak in complete sentences Auscultation: clear to auscultation bilaterally Cardio Common normals: regular rate and regular rhythm Rate: regular rate Rhythm: regular rhythm GI Common normals: Normal to inspection, nondistended, normoactive bowel sounds present Inspection: normal to inspection Auscultation: normoactive bowel sounds Palpation: soft Rectal Exam - Female: deferred Common normals: no CVA tenderness Back & Pelvis Common normals: no CVA tenderness Thoracic spine/upper back: normal to inspection Extremity Common normals: normal to inspection and full ROM Neuro Common normals: oriented x3 Sensorium/orientation: awake, alert, oriented to person, oriented to place and oriented to time Psych Common normals: mental status grossly normal, thought process normal, cooperative, affect normal, speech normal, activity/motor behavior normal, denies hallucinations, denies homicidal ideation and denies suicidal ideation Appearance: grossly normal Attitude: calm Activity/motor behavior: appropriate eye contact Speech: normal speech Results Labs Labs: Short CBC 10/06/24 Range/Units 12:40 WBC 19.8 H (4.0-11.0) 10^3/uL Hgb 11.3 L (12.0-16.0) g/dL Hct 33.0 L (36.0-48.0) % Plt Count 293 (150-450) 10^3/uL OB - A/P Assessment and Plan (1) Term : Plan term
[2024-10-06] MEDS: CITRIC ACID/SODIUM CITRATE 30 ML SOLUTION ORACIT SHOHL'S SOLN PO (15:23)
--- NOTE | 2024-10-06 15:41 | P.EN_ITS ---
Event Note Event Note: 1131 message from nurse that patient was on her way to the hospital in labor. She has been laboring at home since yesterday. I did give as much report as I could. I have not seen her for the last two weeks. She refused 1 hr gtt and states she was checking her blood sugars at home. At her last office appointme nt she stated she forgot the paper. We made several phone calls asking her to send the blood sugars via email. She then cancelled an appt and when it was rescheduled she did not show for that one. MA in my office left several messages for her to send the glucose log and to reschedule her appt with no return of phone calls from her. I did give orders to nurse to check bedside glucose along with GBS orders and routine labor orders. RN informs me that she did report to Dr Alcantara that patient was on her way in. I then received a text when patient arrived that she ws 6-7 cm. I called in and orders given. RN states she was laboring at home and states I'm coming in and I would like an epidural. I then called and updated Dr Alcantara of her arrival and SVE. 1401 call received from nurse that patient had her epidural and she had a 12 minute prolong decel. She has moderate variability and EFM tracing is better . PRINT ROOM WORKER present with patient and gave ephedrine. [address] Alcantara and report given 1437 I arrived in unit. patient sleeping and snoring. PRINT ROOM WORKER in unit. 1455 to room and assessment obtained. patient is calm, resting and states that she is tired. her , mom and her wood crew supervisor are present in the room. SVE performed station small amount of caput noted. patient states she hasn't been to her appts in my office for a couple of weeks due to we've had a lot of family in town . She does not have her glucose readings with her today, and states they're all normal, I'm not diabetic. I did explain the importance of that testing, and the recording of the results. Patient states she is tired and having acid reflux. She is comfortable and denies pain at this time. Dr Alcantara updated with patients progress
[2024-10-06] MEDS: OXYTOCIN/0.9 % SODIUM CHLORIDE 10 UNITS/500 ML PLAST..BAG 3 UNIT IV (16:45)
[2024-10-06] MEDS: PENICILLIN G POTASSIUM 2,500,000 UNIT in 0.9 % SODIUM CHLORIDE 50 ML 100 UNIT IV (17:27)
--- NOTE | 2024-10-06 18:11 | PC.NURSE ---
Pt consent obtained prior to insertion; education provided. Dark yellow urine in castle bag at this time.
--- NOTE | 2024-10-06 19:46 | PM.EN ---
Event Note Event Note: patient in protracted labor stage. She has been cervically unchanged for 3-4 hours. I went to the room to discuss the EFM tracing and decels and I recommended a section delivery and patient refuses and states I want to talk about it with my family. I explained the risks of waiting, the heart tones, the failure of progression, unknown rupture of membrane status. At this time she wanted me to leave the room to discuss it with her family. SVE done and unchanged.
--- NOTE | 2024-10-06 19:59 | PM.EN ---
Event Note Event Note: 1950 patient has 3 minute decel and I enter the room to inform her. at that time she states she is in agreement for a primary section. risks, benefits discussed with her and her and she agrees to procedure. Dr Alcantara called with report and Class B primary section
[2024-10-06] MEDS: FAMOTIDINE/PF 20 MG/2 ML VIAL IV (20:10)
[2024-10-06] MEDS: METOCLOPRAMIDE HCL 10 MG/2 ML VIAL IVP (20:10)
--- NOTE | 2024-10-06 20:24 | PC.NURSE ---
1530- Pt refusing position changes at this time d/t acid reflux.
[2024-10-06 20:39] LABS: Amphetamine Screen Urine NEGATIVE (NEGATIVE); Cannabinoid Screen Urine NEGATIVE (NEGATIVE); Cocaine Screen Urine NEGATIVE (NEGATIVE); Methamphetamines Screen Urine POSITIVE (NEGATIVE); Opiate Screen Urine NEGATIVE (NEGATIVE); Phencyclidine Screen Urine NEGATIVE (NEGATIVE)
[2024-10-06 20:40] LABS: Barbiturates Screen Urine POSITIVE (NEGATIVE); Benzodiazepines Screen Urine NEGATIVE (NEGATIVE); Buprenorphine Screen Urine NEGATIVE (NEGATIVE); Methadone Screen Urine NEGATIVE (NEGATIVE); Oxycodone Screen Urine NEGATIVE (NEGATIVE); Tricyclic Antidepressant Urine NEGATIVE (NEGATIVE)
[2024-10-06] MEDS: CEFAZOLIN SODIUM/DEXTROSE,ISO 2 GM/50 ML PIGGYBACK IV (20:40)
--- NOTE | 2024-10-06 20:40 | W.PC.ACHO ---
Registration Status: ADM IN Primary Language: Latvian Preferred Language: Latvian Report given to Abby HARMON. Care relinquished at 1905. Active Medications Generic Name Dose Route Start Last Admin Trade Name Maru PRN Reason Stop Dose Admin Carboprost Tromethamine 250 mcg 10/06/24 12:34 Carboprost Tromethamine 250 Mcg/Ml 1 Ml Vial IM 10/08/24 12:34 Q15M PRN Bleeding Citric Acid/Sodium Citrate 30 ml 10/06/24 20:00 Citric Acid/Sodium Citrate 30 Ml Solution Oracit Shohl's Soln PO 10/06/24 20:01 ONCE ONE Diphenhydramine HCl 25 mg 10/06/24 14:54 Diphenhydramine Hcl 50 Mg/Ml Vial IV 10/07/24 14:55 Q6H PRN Itching Ephedrine Sulfate 5 mg 10/06/24 14:54 10/06/24 13:53 Ephedrine Sulfate 50 Mg/Ml Vial IV 10/07/24 14:54 5 mg Q5M PRN Administration Blood Pressure - Low Famotidine 20 mg 10/06/24 20:00 Famotidine/Pf 20 Mg/2 Ml Vial IV 10/06/24 20:01 ONCE ONE Tranexamic Acid 1,000 mg/ 110 mls @ 440 mls/hr 10/06/24 12:34 Sodium Chloride IV 10/08/24 12:34 ONCE PRN Uterine Bleeding Lactated Ringer's 1,000 mls @ 125 mls/hr 10/06/24 13:00 10/06/24 19:28 Lactated Ringers IV 125 mls/hr .Q8H WADE Administration Penicillin G Potassium 2,500, 50 mls @ 100 mls/hr 10/06/24 17:00 10/06/24 17:57 000 unit/ Sodium Chloride IV Infused Q4H WADE Infusion Oxytocin/Sodium Chloride 20 units in 1,000 mls @ 125 mls/hr 10/06/24 12:34 Pitocin 20 Unit/1,000 Ml-Ns IV Q8H PRN POST DELIVERY Ropivacaine/Sodium Chloride 400 mg in 200 mls @ 6 mls/hr 10/06/24 15:00 10/06/24 14:06 Naropin 0.2% 400 Mg/200 Ml Bag EPIDURAL 6 mls/hr Q24H WADE Administration Oxytocin/Sodium Chloride 10 units in 500 mls @ 6 mls/hr 10/06/24 16:30 10/06/24 19:00 Pitocin 10 Unit/500 Ml-Ns IV 5 milliunit/min TITR WADE 15 mls/hr Protocol Infusion 2 MILLIUNIT/MIN Oxytocin/Sodium Chloride 20 units in 1,000 mls @ 125 mls/hr 10/06/24 20:00 Pitocin 20 Unit/1,000 Ml-Ns IV Q8H PRN POST DELIVERY Lactated Ringer's 1,000 mls @ 1,000 mls/hr 10/06/24 20:00 Lactated Ringers IV 10/06/24 21:59 .Q1H WADE Cefazolin Sodium/Dextrose 2 gm in 50 mls @ 100 mls/hr 10/06/24 20:00 Ancef 2 Gm Premix IV 10/06/24 20:29 ONCE ONE Lidocaine 5 ml 10/06/24 12:34 Lidocaine Viscous 2% 15 Ml Solution TOPICAL 10/08/24 12:36 ONCE PRN Pain Lidocaine 1 ml 10/06/24 12:34 Lidocaine Hcl 1% 200 Mg/20 Ml Mdv INJ 10/08/24 12:36 ONCE PRN Pain Methylergonovine Maleate 0.2 mg 10/06/24 12:34 Methylergonovine Maleate 0.2 Mg/Ml Ampule IM 10/08/24 12:34 ONCE PRN Uterine Contractility/Contract Methylergonovine Maleate 0.2 mg 10/06/24 12:34 Methylergonovine Maleate 0.2 Mg Tablet PO 10/08/24 12:34 Q4H PRN Uterine Contractility/Contract Metoclopramide HCl 10 mg 10/06/24 20:00 Metoclopramide Hcl 10 Mg/2 Ml Vial IVP 10/06/24 20:01 ONCE ONE Misoprostol 600 mcg 10/06/24 12:34 Misoprostol 100 Mcg Tablet PO 10/08/24 12:34 ONCE PRN Uterine Bleeding Misoprostol 800 mcg 10/06/24 12:34 Misoprostol 100 Mcg Tablet SL 10/08/24 12:34 ONCE PRN Uterine Bleeding Misoprostol 1,000 mcg 10/06/24 12:34 Misoprostol 100 Mcg Tablet ID 10/08/24 12:34 ONCE PRN Uterine Bleeding Nalbuphine HCl 10 mg 10/06/24 12:34 Nalbuphine Hcl 10 Mg/Ml Ampule IV Q3H PRN Pain Scale 4-6 Naloxone HCl 0.4 mg 10/06/24 14:54 Naloxone Hcl 0.4 Mg/Ml Vial IV 10/07/24 14:55 ONCE PRN Respiratory Distress Ondansetron HCl 4 mg 10/06/24 12:34 10/06/24 14:57 Ondansetron Pf 4 Mg/2 Ml Vial IV 4 mg Q6H PRN Administration Nausea And Vomiting Ondansetron HCl 4 mg 10/06/24 12:34 Ondansetron 4 Mg Rapdis Tablet SL Q6H PRN Nausea And Vomiting Oxytocin 10 unit 10/06/24 12:34 Oxytocin 10 Unit/Ml Vial IM 10/08/24 12:34 ONCE PRN Bleeding Diet Category Date Time Status Regular Consistency Diet Diet 10/06/24 12:35 Active Consults Category Date Time Status Consult to Anesthesiology Routine Cons 10/06/24 Ordered IV Insertion/Site Date of IV Line Insertion [ 10/06/24 Short PIV (<1.75 in) 20g left Antecubital] IV Insertion Time [Short PIV ( 12:40 <1.75 in) 20g left Antecubital ] Neurology Patient orientation (short person,place,time list)
[2024-10-06] MEDS: LACTATED RINGER'S SOLUTION 1,000 ML 1000 ML IV ×2 (21:01→21:15)
--- NOTE | 2024-10-06 21:34 | PM.ONB ---
Brief Operative Note Date of procedure: 10/06/24 Pre-op diagnosis general: iup at 40 1/7wks, non reassuring heart tones, failure to dilate, active labor Post-op diagnosis: same as pre-op Procedure: NAME OF PROCEDURE: [ section ] PROCEDURE: Patient was taken back to the Operating Room where she was given a spinal anesthesia with Duramorph without difficulty. She was prepped and draped in the normal sterile fashion. A Pfannenstiel skin incision was then made 2 cm above the symphysis pubis and carried down to underlying rectus fascia using a Bovie. The fascia was incised in the midline and extended laterally using Concepcion scissors. Two Gopal clamps were placed on the superior aspect of the fascia and dissected off the underlying rectus muscles. The same was performed on the inferior aspect as well. The muscles were then in the midline. Peritoneum was identified and entered bluntly. The peritoneum was then extended superiorly and inferiorly with good visualization of the bladder. The bladder blade was inserted. A low transverse incision was made on the patient's uterus and extended laterally digitally. The infant was then delivered atraumatically after the bladder blade was removed in the cephalic position. The cord was clamped and cut. Cord blood was obtained. The was handed off to awaiting team. The patient's placenta was spontaneously delivered. The uterus was then exteriorized. The uterus was cleared of all clots and debris. The bladder blade was reinserted. The patient's uterine incision was closed using #0 Vicryl in a running lock fashion. Excellent hemostasis was assured. The uterus was then returned to the patient's abdomen. The patient's abdomen was copiously irrigated using warm saline. Peritoneal gutters were cleared of all clots and debris. Again excellent hemostasis was assured. The patient's peritoneum was closed using 3-0 Vicryl in a running fashion. The patient's fascia was closed using #0 Vicryl in a running fashion. The patient's skin was closed using 4-0 Vicryl subcuticularly. The patient tolerated the procedure well. Sponge, lap, and needle counts were correct x2. The patient was taken to the Recovery Room in stable condition. Anesthesia: epidural Surgeon: Eliud Alcantara Cut Off Sawyer: ROHIT ARRIAGA Estimated blood loss (mL): 575 Pathology: none sent Condition: stable Disposition: floor Urinary Catheter Management Urinary Catheter Management Urethral: Cath placed during this visit: no
--- NOTE | 2024-10-06 21:37 | PM.OBPRCCS ---
Procedure Pre-op/Post-op diagnoses: Pre-Op/Post-Op Diagnoses Operation Date: 10/06/24 20:30 <No data on this case meets the specified criteria> Procedure: Procedures Operation Date: 10/06/24 20:30 Actual Procedure Side Surgeon p Not Applicable Eliud Alcantara DO Medieval English Literature Professor: ROHIT ARRIAGA Estimated blood loss (mL): 575 Disposition: floor Anesthesia type: Epidural
[2024-10-06] MEDS: BUPIVACAINE LIPOSOME/PF 266 MG/20 ML VIAL INJ (21:55)
--- NOTE | 2024-10-06 22:05 | P.EN_ITS ---
Event Note Event Note: Air Intercept Controller: i first assisted Dr Alcantara with a primary low transverse section. I assisted as directed. i independently closed the SQ layer with 3-0 vicryl suture without difficulty. I then independently closed the incision with 4-0 vicryl on a Dk needle without difficulty. Hemostasis noted at completion of the case. Patient tolerated procedure well.
[2024-10-06] MEDS: OXYCODONE HCL/ACETAMINOPHEN 5MG/325MG 1 TAB PO (23:39)
[2024-10-07] VITALS (14 sets, daily range): BP systolic 119–152; BP diastolic 57–96; PULSE 85–125; TEMP 36.7–37.1
[2024-10-07] MEDS: CEFAZOLIN SODIUM/DEXTROSE,ISO 2 GM/50 ML PIGGYBACK IV (02:50)
[2024-10-07] MEDS: OXYCODONE HCL/ACETAMINOPHEN 5MG/325MG 1 TAB PO (03:27)
[2024-10-07] MEDS: KETOROLAC TROMETHAMINE 30 MG/ML VIAL IVP ×3 (03:27→16:25)
[2024-10-07 06:10] LABS: Basophils Percent Auto 0.1 % (0.2-2.0); Eosinophils Percent Auto 0.1 % (0.9-7.0); Immature Granulocytes Abs Auto 0.04 10^3/uL (0.00-0.03); Immature Granulocytes Pct Auto 0.3 % (0.0-0.5); Lymphocytes Absolute Auto 3.1 10^3/uL (1.2-3.8); Lymphocytes Percent Auto 21.8 % (20.5-60.0); Mean Corpuscular HGB Conc 33.9 g/dL (29.9-35.2); Mean Corpuscular Hemoglobin 29.9 pg (26.7-34.0); Mean Corpuscular Volume 88.1 fL (81.0-99.0); Mean Platelet Volume 12.2 fL (9.5-13.5); Neutrophils Absolute Auto 10.2 10^3/uL (1.4-6.5); Neutrophils Percent Auto 70.7 % (43.0-75.0); Platelet Count 205 10^3/uL (150-450); Red Blood Count 2.68 10^6/uL (4.20-5.40); Red Cell Distribution Width 13.9 % (11.0-15.0); White Blood Count 14.4 10^3/uL (4.0-11.0)
[2024-10-07 06:29] LABS: Hematocrit 23.6 % (36.0-48.0)
--- NOTE | 2024-10-07 08:45 | PM.OBPN ---
Exam Constitutional Vital Signs, click to edit/add: Last Vital Signs Temp 98.1 F 10/07/24 03:25 Pulse 95 H 10/07/24 03:25 Resp 18 10/07/24 00:37 BP 129/71 10/07/24 03:25 Pulse Ox 96 10/06/24 23:30 O2 Del Method Room Air 10/07/24 03:26 Documenting provider has reviewed patient's vital signs: yes Common normals: no apparent distress, average body habitus, oriented x3, no limitations, healthy appearing, alert and well nourished Exam limitations: altered mental status General appearance: cooperative Orientation/consciousness: Yes awake, Yes oriented to person, Yes oriented to place and Yes oriented to time HENMT Common normals: normocephalic Eye Common normals: EOMs intact bilaterally General eye: normal appearance of both eyes Neck & C-Spine Common normals: full ROM and no lymphadenopathy Lymph Lymphatic: no lymphadenopathy noted Chest Common normals: inspection of chest normal Respiratory Common normals: normal respiratory effort, no retractions, no use of accessory muscles, clear to auscultation bilaterally and percussion normal Effort & inspection: able to speak in complete sentences Auscultation: clear to auscultation bilaterally Cardio Common normals: regular rate and regular rhythm Rate: regular rate Rhythm: regular rhythm GI Common normals: Normal to inspection, nondistended, normoactive bowel sounds present and soft to palpation Inspection: normal to inspection Auscultation: hypoactive bowel sounds Palpation: soft Rectal Exam - Female: deferred OB/external & speculum: deferred Manual OB Exam: deferred Back & Pelvis Common normals: no CVA tenderness Extremity Common normals: normal to inspection Neuro Common normals: oriented x3 Sensorium/orientation: awake, alert, oriented to person, oriented to place and oriented to time Psych Common normals: mental status grossly normal, thought process normal, cooperative, affect normal, speech normal, activity/motor behavior normal, denies hallucinations, denies homicidal ideation and denies suicidal ideation Appearance: grossly normal Attitude: calm Activity/motor behavior: appropriate eye contact Speech: normal speech Thought process: normal thought process Results Labs Labs: Short CBC 10/06/24 10/07/24 Range/Units 12:40 06:06 WBC 19.8 H 14.4 H (4.0-11.0) 10^3/uL Hgb 11.3 L 8.0 L (12.0-16.0) g/dL Hct 33.0 L 23.6 L* (36.0-48.0) % Plt Count 293 205 (150-450) 10^3/uL Urinary Catheter Management Urinary Catheter Management Urethral: Cath placed during this visit: yes Urethral indwelling: Yes Reason for continuing: surgical procedure Insertion date: 10/06/24 OB - PN: A/P Assessment and Plan (1) Term : Plan - day: 1 Plan: routine postop care Time Spent with Patient Time: Total time spent is greater than 50% in coordination of care (as documented) at patient's floor/unit and/or counseling patient: Total time spent with greater than 50% in coordination of care (as documented) at patient's floor/unit and/or counseling patient: less than 15 minutes
[2024-10-07] MEDS: DOCUSATE SODIUM 100 MG CAPSULE PO ×2 (09:43→22:52)
[2024-10-07] MEDS: ENOXAPARIN SODIUM 40 MG/0.4 ML SYRINGE SUBQ (09:43)
[2024-10-07] MEDS: OXYCODONE HCL/ACETAMINOPHEN 5MG/325MG 2 TAB PO (14:53)
--- NOTE | 2024-10-07 15:38 | SWNOTE1 ---
SW spoke to nurse prior to going in room. Pt denies any kind of use of any substance to make her positive for Barbiturates. Only one dose of Tylenol in . Nurse unsure as well as to why positive. Possible false positive or patient uses several natural/essential oils, unsure if that would cause positive. Pt did get epidural prior to drug screen and that is why she was positive for methamphetamine. SW spoke to pt in room. Pt's mother in room as well. This is pt's first baby. She does have good support between families. Pt has everything she needs at home for baby. Father of baby is involved and they are . SW discsused positive drug screen with pt. She voiced the only thing she can think of would be her natural/essential oils, but unsure if that would cause positive drug screen for Barbiturates. SW explained the Methamphetamine positive drug screen to her. She voiced the only time she took Tylenol was once during second trimester. 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 She is going to ask her drying unit felting machine operator about the Barbiturates and oils. At this time SW and nursing have no concerns about baby or patient. SW let pt know that SW will wait until cord results are back from baby. At this time no report made to CPS. SW advised pt that if anything changes SW will stop back in. Pt and pt's mother did express that she has taken multiple drug screens at appointments and they were negative. SW to check with nursing. SW spoke to nurse and her other drug screens were negative. Nurse going to see if we can lab use same urine to do another drug screen. SW to follow as needed.
[2024-10-07] MEDS: IBUPROFEN 400 MG TABLET 800 MG PO (22:52)
[2024-10-08] MEDS: OXYCODONE HCL/ACETAMINOPHEN 5MG/325MG 2 TAB PO ×4 (00:29→14:45)
--- NOTE | 2024-10-08 01:17 | P.OBPN_ITS ---
OB - PN: Subj Subjective Patient comments: no complaints Oakwood status: doing well [place] feeding status: exclusively Exam Constitutional Vital Signs, click to edit/add: Last Vital Signs Temp 98.8 F 10/07/24 22:30 Pulse 90 10/07/24 22:56 Resp 16 10/07/24 22:30 BP 130/70 10/07/24 22:56 Pulse Ox 96 10/06/24 23:30 O2 Del Method Room Air 10/07/24 22:30 Common normals: no apparent distress Exam limitations: altered mental status General appearance: cooperative, comfortable, well kempt and well developed Nutritional appearance: cachectic Orientation/consciousness: Yes awake, Yes oriented to person, Yes oriented to place and Yes oriented to time HENMT Common normals: normocephalic Eye Common normals: EOMs intact bilaterally General eye: normal appearance of both eyes Visual acuity: acuity normal Neck & C-Spine Common normals: full ROM and no lymphadenopathy General: normal visual inspection Lymph Lymphatic: no lymphadenopathy noted Chest Common normals: inspection of chest normal Chest: abnormal inspection of the chest Respiratory Common normals: normal respiratory effort, no retractions, no use of accessory muscles and clear to auscultation bilaterally Effort & inspection: able to speak in complete sentences Auscultation: clear to auscultation bilaterally Cardio Common normals: regular rate and regular rhythm Rate: regular rate Rhythm: regular rhythm GI Common normals: Normal to inspection, nondistended, normoactive bowel sounds present, soft to palpation and non-tender Inspection: normal to inspection Auscultation: normoactive bowel sounds Palpation: soft Common normals: no CVA tenderness Back & Pelvis Common normals: no CVA tenderness Thoracic spine/upper back: normal to inspection Extremity Common normals: normal to inspection, full ROM and normal capillary refill General: normal exam except as noted Neuro Common normals: oriented x3 Sensorium/orientation: awake, alert, oriented to person, oriented to place and oriented to time Psych Common normals: mental status grossly normal, thought process normal, cooperative, affect normal, speech normal, activity/motor behavior normal, denies hallucinations, denies homicidal ideation and denies suicidal ideation Appearance: grossly normal Attitude: calm Activity/motor behavior: appropriate eye contact Speech: normal speech Thought process: normal thought process Thought content: normal thought content Results Labs Labs: Short CBC 10/07/24 Range/Units 06:06 WBC 14.4 H (4.0-11.0) 10^3/uL Hgb 8.0 L (12.0-16.0) g/dL Hct 23.6 L* (36.0-48.0) % Plt Count 205 (150-450) 10^3/uL Urinary Catheter Management Urinary Catheter Management Urethral: Cath placed during this visit: yes Urethral indwelling: Yes Reason for continuing: not indwelling catheter Insertion date: 10/06/24 OB - PN: A/P Assessment and Plan (1) Term : Plan - day: 2 Plan: discharge home Time Spent with Patient Time: Total time spent is greater than 50% in coordination of care (as documented) at patient's floor/unit and/or counseling patient: Total time spent with greater than 50% in coordination of care (as documented) at patient's floor/unit and/or counseling patient: less than 15 minutes
[2024-10-08] MEDS: IBUPROFEN 400 MG TABLET 800 MG PO (08:12)
[2024-10-08] MEDS: DOCUSATE SODIUM 100 MG CAPSULE PO (08:13)
[2024-10-08 08:15] VITALS: TEMP 36.6
[2024-10-08 08:17] VITALS: BP 162/76; PULSE 81
--- NOTE | 2024-10-08 12:55 | PC.NURSE ---
report provided to Munir Soria RN
[2024-10-09 22:11] LABS: Amphetamines Negative (Cutoff=500)
--- NOTE | 2024-10-14 09:23 | SWNOTE1 ---
SW checked cord results and they are negative. SW went back in to chart and they did re-test pt's urine for barbiturates, it was negative. SW not making referral to CPS at this time due to cord and second urine screen being negative.
== END 2024-10-08 15:45 | disposition home or self-care (01) | DRG 540 ==
PROVIDERS: Obstetrics & Gynecology; Admitting Provider Midwife; Visit Provider Midwife
PROC: 10D00Z1 Extraction of Products of Conception, Low, Open Approach (ICD-10-PCS; CPT 59514; principal; 2024-10-06 20:30)
DX: O99.824 Streptococcus B carrier state complicating childbirth (principal); O76 Abnormality in fetal heart rate and rhythm complicating labor and delivery; O62.0 Primary inadequate contractions; Z3A.40 40 weeks gestation of pregnancy; Z37.0 Single live birth
CPT/HCPCS: 36415; 59050; 64488; 80307; 80326; 80345; 82948; 85025; 85027; 86850; 86900; 86901; 94667; 94668; J0665; J0690; J1650; J1885; J2274; J2371; J2405; J2540; J2590; J2765; J2795; J3010; J3490

== ENCOUNTER 2024-10-15 09:56 | Outpatient (OUT) | payer MEDICAID, SELFPAY ==
--- OUTSIDE RECORDS SUMMARY | 2024-10-14 13:30 | XMS_ITS | Encounter Summary ---
Author Organization [facility] Address [address] [place] [address] Care Team Providers Care Data Integrity Consultant Name Role Phone Unallocated, Noms Provider Primary Care Provi helena Reason for Visit * Reason Comments Care Encounter Details Date Type Department Care Team (Latest Contact Info) Description 10/14/2024 1:30 PM EDT Visit [facility] [address] [place] [phone] Kelin Bethea CNM [address] [place], [place] [phone] examination following delivery (Primary Dx) Social History Tobacco Use Types Packs/Day Years Used Date Smoking Tobacco: Never Smokeless Tobacco: Never Alcohol Use Standard Drinks/Week Comments Not Currently 0 (1 standard drink = 0.6 oz pur e alcohol) Comments No Sex and Gender Information Value Date Recorded Sex Assigned at Not on file Legal Sex Female 11:47 PM EDT Gender Identity Not on file Sexual Orientation Not on file documented as of this encounter Last Filed Vital Signs Vital Sign Reading Time Taken Comments Blood Pressure 122/80 10/14/2024 1:42 PM EDT Pulse - - Temperature - - Respiratory Rate - - Oxygen Saturation - - Inhaled Oxygen Concentration - - Weight 68.5 kg (151 lb) 10/14/2024 1:42 PM EDT Height - - Body Mass Index 25.13 07/11/2022 12:00 PM EST documented in this encounter Progress Notes * Kelin Bethea CNM - 10/14/2024 1:30 PM EDT Loretta Torres Mera is here for visit. She is 8 days . Complaints: has no unusual complaints Weeks at delivery: 40 week Type of delivery: , Low Transverse; primary Gender: male Baby is healthy: yes Breast or bottle feeding: breast Complaints or complications: no complications mood: well and fatigued Contraception: none Resumed Sexual activity: no Resumed Menses: no EXAM: GENERAL APPEARANCE: alert, well appearing, in no apparent distress Incision: steri strips removed. Patient c/o soreness and tenderness on the right side. States the percocet and motrin do give relief. No tenderness with palpation. All edges are well approximated, nodischarge, drainage, bleeding or odor noted. ASSESSMENT/PLAN: There are no diagnoses linked to this encounter. normal exam documented in this encounter Plan of Treatment Upcoming Encounters Date Type Department Care Team (Late st Contact Info) Description 11/10/2024 5:00 PM EDT Visit [facility] [address] [place] [address] Kelin Bethea CNM [address] [place] [address] documented as of this encounter Visit Diagnoses Diagnosis examination following delivery- Primary documented in this encounter Care Teams Data Integrity Consultant Relationship Specialty Start Date End Date Unallocated, Noms Provider, [address] [place] [address] PCP - General Family Medicine 04/24/24 documented as of this encounter
--- OUTSIDE RECORDS SUMMARY | 2024-10-15 10:00 | XMS_ITS | Encounter Summary ---
Author Organization [facility] Address [address] [place] [address] Care Team Providers Care Aerial Erector Name Role Phone Unallocated, Noms Provider Primary Care Provi helena Encounter Details Date Type Department Care Team (Late st Contact Info) Description 2024 Clinisync Result Encounter [facility] External Department Unsolicited Eliud Alcantara, DO [address] [facility] [address] [place], [place] [phone] Social History Tobacco Use Types Packs/Day Years Used Date Smoking Tobacco: Never Smokeless Tobacco: Never Alcohol Use Standard Drinks/Week Comments Not Currently 0 (1 standard drink = 0.6 oz pur e alcohol) Comments Yes Sex and Gender Information Value Date Recorded Sex Assigned at Not on file Legal Sex Female 11:47 PM EDT Gender Identity Not on file Sexual Orientation Not on file documented as of this encounter Plan of Treatment Upcoming Encounters Date Type Department Care Team (Late st Contact Info) Description 11/10/2024 5:00 PM EDT Visit [facility] [address] [place] [address] Kelin Bethea, KRISTINEM [address] [place] [address] documented as of this encounter Procedures Procedure Name Priority Date/Time Associated Diagnosis Comments ALL CBC WITH AUTO DIFF Routine 2024 6:06 AM EDT documented in this encounter Results * (ABNORMAL) ALL CBC WITH AUTO DIFF (2024 6:06 AM EDT) [facility] WBC 14.4(H) 4.0 - 11.0 10 3/uL TBH TBH RBC 2.68(L) 4.20 - 5.40 10 6/uL TBH TBH HGB 8.0(L) 12.0 - 16.0 g/dL TBH TBH HCT 23.6(LL) 36.0 - 48.0 % TBH Comment:RESULTS CALLED TO BRENDEN JUARES RN TB MCV 88.1 81.0 - 99.0 fL TBH TBH MCH 29.9 26.7 - 34.0 pg TBH TBH MCHC 33.9 29.9 - 35.2 g/dL TBH TBH RDW 13.9 11.0 - 15.0 % TBH TBH PLT 205 150 - 450 10 3/uL TBH TBH MPV 12.2 9.5 - 13.5 fL TBH NEUTROPHILS PERCENT AUTO 70.7 43.0 - 75.0 % TBH LYMPHOCYTES PERCENT AUTO 21.8 20.5 - 60.0 % TBH MONOCYTES PERCENT AUTO 7.0 1.7 - 12.0 % TBH TBH EO % 0.1(L) 0.9 - 7.0 % TBH BASOPHILS PERCENT AUTO 0.1(L) 0.2 - 2.0 % TBH IMMATURE GRANULOCYTES PCT AUTO 0.3 0.0 - 0.5 % TBH NEUTROPHILS ABSOLUTE AUTO 10.2(H) 1.4 - 6.5 10 3/uL TBH LYMPHOCYTES ABSOLUTE AUTO 3.1 1.2 - 3.8 10 3/uL TBH MONOCYTES ABSOLUTE AUTO 1.0(H) 0.3 - 0.8 10 3/uL TBH TBH EO # 0.0 0.0 - 0.7 10 3/uL TBH BASOPHILS ABSOLUTE AUTO 0.0 0.0 - 0.1 10 3/uL TBH IMMATURE GRANULOCYTES ABS AUTO 0.04(H) 0.00 - 0.03 10 3/uL TBH 2024 6:06 AM EDT 2024 6:08 AM EDT Narrative [facility] - 2024 6:29 AM EDT Eliud Alcantara DO [facility] Final Result [facility] documented in this encounter Visit Diagnoses Not on filedocumented in this encounter Care Teams Aerial Erector Relationship Specialty Start Date End Date Unallocated, Noms Provider, [address] [place] [address] PCP - General Family Medicine 04/24/24 documented as of this encounter
--- OUTSIDE RECORDS SUMMARY | 2024-10-15 10:00 | XMS_ITS | Encounter Summary ---
Author Organization [facility] Address [address] [place] [address] Care Team Providers Care Drier Helper Name Role Phone Unallocated, Noms Provider Primary Care Provi helena Encounter Details Date Type Department Care Team (Late st Contact Info) Description 04/02/2024 Clinisync Result Encounter [facility] External Department Unsolicited Rohit Bethea CNM [address] [place], [place] [phone] Social History Tobacco Use Types Packs/Day Years [...] PM EDT Visit [facility] [address] [place] [address] Rohit Bethea CNM [address] [place], [place] [phone] documented as of this encounter Procedures Procedure Name Priority Date/Time Associated Diagnosis Comments US OB L= 14 WEEKS FETUS 04/02/2024 2:43 PM EST documented in this encounter Results * US OB L= 14 WEEKS FETUS (04/02/2024 2:43 PM EST) Anatomical Region Laterality Modality Other 04/02/2024 2:43 PM EST Narrative 04/02/2024 2:45 PM EST [address] [address] Ultrasound Report Signed Patient: EVAN TESFAYE MR#: [id number] : 1990 Acct:[id number] Age/Sex: 33 / F ADM Date: 04/02/24 Loc: US Attending Dr: ROHIT BETHEA APRN, CNM Ordering Physician: ROHIT BETHEA APRN, CNM Date of Service: 04/02/24 Procedure(s): US OB <= 14 weeks fetus Accession Number(s): [id number] cc: ROHIT BETHEA APRN, CNM; Physician,Non-Staff M.DAyleen The [address] [id number] Patient Name: EVAN TESFAYE MRN: [facility]:[id number] date: 1990 Sex: F Assigned Patient Location: Current Patient Location: US Accession/Order Number: [id number] Exam Date: 04/02/2024 13:27 Report Date: 04/02/2024 [...] Dictated By: James Bhandari M.D. Signed By: 04/02/24 1445 DD/ 42 TD/TT: Broke Beater Operator: Procedure Note Radiology, Radiologist, MD - 04/02/2024 [place] [address] Ultrasound Report Signed Patient: EVAN TESFAYE MMR#: [id number] : 1990Acct:[id number] Age/Sex: 33 / FADM Date: 04/02/24 Loc: US Attending Dr: ROHIT BETHEA APRN, CNM Ordering Physician: ROHIT BETHEA APRN, CNM Date of Service: 04/02/24 Procedure(s): US OB <= 14 weeks fetus Accession Number(s): [id number] cc: ROHIT BETHEA APRN, CNM; Physician,Non-Staff M.DAyleen The [place] [id number] Patient Name: EVAN TESFAYE MRN: [facility]:[id number] date: 1990 Sex: F Assigned Patient Location: US Current Patient Location: US Accession/Order Number: [id number] Exam Date: 04/02/2024 13:27 Report Date: 04/02/2024 [...] Bhandari M.D. Signed By:04/02/241444 DD/ 42 TD/TT: Broke Beater Operator: us Rohit CARMONAM [facility] Final Resu lt documented in this encounter Visit Diagnoses Not on filedocumented in this encounter Care Teams Drier Helper Relationship Specialty Start Date End Date Unallocated, Noms Provider, [address] [place] [address] PCP - General Family Medicine 04/24/24 documented as of this encounter
--- OUTSIDE RECORDS SUMMARY | 2024-10-15 10:00 | XMS_ITS | Encounter Summary ---
Author Organization [facility] Address [address] [place] [address] Care Team Providers Care Forestry Fire Aid Name Role Phone Unallocated, Noms Provider Primary Care Provi helean Encounter Details Date Type Department Care Team (Late st Contact Info) Description 10/06/2024 Clinisync Result Encounter [facility] External Department Unsolicited Kelin Bethea CNM [address] [place], [place] [phone] Social History Tobacco Use Types Packs/Day Years [...] PM EDT Visit [facility] OB [address] [place] [address] Kelin Bethea CNM [address] [place], [place] [phone] documented as of this encounter Procedures Procedure Name Priority Date/Time Associated Diagnosis Comments TBH DRUG SCREEN RAPID (URINE) Routine 10/06/2024 8:05 PM EDT ALL MISCELLANEOUS TEST Routine 8:05 PM EDT [facility] CBC WITH PLATELET NO DIFFERENTIAL Routine 10/06/2024 12:40 PM EDT documented in this encounter Results * ALL MISCELLANEOUS TEST (10/06/2024 8:05 PM EDT) MISCELLANEOUS TEST COMMENT . [facility] Comment: Test Ordered: [id number] Barbiturates Confirmation, Ur Specimen Comment: [employer]ox[employer], ToxAssure FLEX or MAT drug testing: Specimen Comment: -Technical component - Data analysis performed at Specimen Comment: [facility], [address]. Specimen Comment: [phone]. Gre Tutor Peggy Weldon MD BARBITURATES Negative MX Reference Range: . Amobarbital Note: MX Not Detected Reference Range: . Barbital Note: MX Not Detected Reference Range: . Butabarbital Note: MX Not Detected Reference Range: . Butalbital Note: MX Not Detected Reference Range: . Mephobarbital Note: MX Not Detected Reference Range: . Pentobarbital Note: MX Not Detected Reference Range: . Phenobarbital Note: MX Not Detected Reference Range: . Secobarbital Note: MX Not Detected Reference Range: . Thiopental Note: MX Not Detected Reference Range: . Testing Threshold: 200 ng/mL This test was developed and its performance characteristics determined by [employer]. It has not been cleared or approved by the Food and Drug Administration. Performed at: [facility] [address] [place] [id number] Gre Tutor: Nimisha Teague [facility], Phone: [phone] Performed at: [facility] [employer] [id number] Gre Tutor: Ender De Luna PhD, Phone: [phone] 10/06/2024 8:05 PM EDT 10/06/2024 8:38 PM EDT Narrative [facility] - 10/12/2024 12:08 AM EDT [id number] Barbiturates Confirmation, Ur us Kelin Bethea CNM [facility] * (ABNORMAL) [facility] DRUG SCREEN RAPID (URINE) (10/06/2024 8:05 PM EDT) CANNABINOID SCREEN URINE NEGATIVE NEGATIVE TBH PHENCYCLIDINE SCREEN URINE NEGATIVE NEGATIVE TBH COCAINE SCREEN URINE NEGATIVE NEGATIVE TBH METHAMPHETAMINES SCREEN URINE POSITIVE(A) NEGATIVE TBH OPIATE SCREEN URINE NEGATIVE NEGATIVE TBH AMPHETAMINE SCREEN URINE NEGATIVE NEGATIVE TBH BENZODIAZEPINES SCREEN URINE NEGATIVE NEGATIVE TBH TRICYCLIC ANTIDEPRESSANT URINE NEGATIVE NEGATIVE TBH METHADONE SCREEN URINE NEGATIVE NEGATIVE TBH BARBITURATES SCREEN URINE POSITIVE(A) NEGATIVE TBH OXYCODONE SCREEN URINE NEGATIVE NEGATIVE TBH BUPRENORPHINE SCREEN URINE NEGATIVE NEGATIVE TBH Comment: DRUG CLASS TEST SYSTEM CUT-OFF CONCENTRATIONS ARE FOLLOWS: AMP (Amphetamine): 500 ng/mL BAR (Barbiturates): 200 ng/mL BZO (Benzodiazepines): 150 ng/mL BUP (Buprenorphine): 10 ng/mL MARCOS (Cocaine): 150 ng/mL mAMP (Methamphetamine): 500 ng/mL MTD (Methadone): 200 ng/mL OPI (Opiates): 100 ng/mL OXY (Oxycodone): 100 ng/mL PCP (Phencyclidine): 25 ng/mL THC (Cannabinoids): 50 ng/mL TCA (Trycyclic Antidepressants): 300 ng/mL 10/06/2024 8:05 PM EDT 10/06/2024 8:38 PM EDT Narrative [facility] - 10/06/2024 8:40 PM EDT us Kelin Bethea CNM [facility] ([facility]) [facility] CBC WITH PLATELET NO DIFFERENTIAL (10/06/2024 12:40 PM EDT) TB WBC 19.8(H) 4.0 - 11.0 10 3/uL TBH TBH RBC 3.88(L) 4.20 - 5.40 10 6/uL TBH TBH HGB 11.3(L) 12.0 - 16.0 g/dL TBH TBH HCT 33.0(L) 36.0 - 48.0 % TBH TBH MCV 85.1 81.0 - 99.0 fL TBH TBH MCH 29.1 26.7 - 34.0 pg TBH TBH MCHC 34.2 29.9 - 35.2 g/dL TBH TBH RDW 13.4 11.0 - 15.0 % TBH TBH PLT 293 150 - 450 10 3/uL TBH TBH MPV 13.1 9.5 - 13.5 fL TBH 10/06/2024 12:4 0 PM EDT 10/06/2024 1:16 PM EDT Narrative [facility] - 10/06/2024 1:29 PM EDT us Kelin Bethea CNM CL[facility] Final Result [facility] documented in this encounter Visit Diagnoses Not on filedocumented in this encounter Care Teams Forestry Fire Aid Relationship Specialty Start Date End Date Unallocated, Noms Provider, [address] [place] [address] PCP - General Family Medicine 04/24/24 documented as of this encounter
--- OUTSIDE RECORDS SUMMARY | 2024-10-15 10:00 | XMS_ITS | Clinical Summary ---
Author Organization [facility] Healthcare Address [address] [place] [address] Care Team Providers Care Gaming Cage Cashier Name Role Phone Unallocated, Noms Provider [...] lancets and test strips. 1 kit 2 5 Active ibuprofen 400 MG tablet Take 400 mg by mouth every 8 (eight) hours if needed for moderate pain 5 Active oxyCODONE-aceta minophen (Percocet) 5-325 MG tablet Take 1 tablet by mouth every 8 (eight) hours if needed for moderate pain 5 Active Encounters Date Type Department Care Team Description 10/14/2024 1:30 PM EDT Visit [facility] [address] [place] [address] Kelin Bethea CNM examination following delivery (Primary Dx) 2024 Clinisync Result Encounter [facility] External Department Unsolicited Eliud Alcantara DO 10/06/2024 Clinisync Result Encounter [facility] External Department Unsolicited Kelin Bethea CNM 09/22/2024 4:00 PM EDT Routine [facility] [address] [place] [address] Kelin Bethea CNM Encounter for care of first , third trimester (Primary Dx) 09/22/2024 Bamboo flowsheet [facility] [address] [facility] [place] [address] Kelin Bethea CNM 09/08/2024 5:30 PM EDT Routine [facility] [address] [facility] [place] [address] Kelin Bethea CNM Encounter for care of first , third trimester (Primary Dx); screening for streptococcus B; related condition in third trimester 09/08/2024 Bamboo flowsheet [facility] [address] [place] [address] Kelin Bethea CNM 08/20/2024 4:30 PM EDT Routine [facility] [address] [facility] [place] [address] Kelin Bethea CNM Screening for diabetes mellitus (DM) (Primary Dx); Encounter for care of first , third trimester 08/20/2024 Bamboo flowsheet [facility] [address] [place] [address] Kelin Bethea CNM 08/08/2024 11:00 AM EDT Ancillary Procedure [facility] ULTRASOUND [address] [address] related condition in third trimester 08/08/2024 Travel from Last 3 Months Family History Medical [...] (151 lb) 10/14/2024 1:42 PM EDT Height 165.1 cm (5' 5 ) 07/11/2022 12:00 PM EST Body Mass Index 25.13 07/11/2022 12:00 PM EST Plan of Treatment Upcoming Encounters Date Type Department Care Team (Late st Contact Info) Description 11/10/2024 5:00 PM EDT Visit [facility] [address] [place] [address] Kelin Bethea CNM [address] [place] [address] Health Maintenance Due Date Last Done Comments Pap Smear 10/06/2012 Cervical Cancer Screening 10/06/2021 HPV/Cotest 10/06/2021 Influenza Vaccine (Season Ended) 2025 Procedures Procedure Name Priority Date/Time Associated Diagnosis Comments ALL CBC WITH AUTO DIFF Routine 6:06 AM EDT ALL MISCELLANEOUS TEST Routine 8:05 PM EDT [facility] DRUG SCREEN RAPID (URINE) Routine 10/06/2024 8:05 PM EDT [facility] CBC WITH PLATELET NO DIFFERENTIAL Routine 10/06/2024 12:40 PM EDT STREPTOCCOUS, GROUP B CULTURE Routine 09/09/2024 7:54 AM EDT screening for streptococcus B US OB FOLLOW UP TRANSABDOMINAL APPROACH Routine 08/08/2024 11:44 AM EDT related condition in third trimester from Last 3 Months Results * (ABNORMAL) ALL CBC WITH AUTO DIFF (2024 6:06 AM EDT) [facility] WBC 14.4(H) 4.0 - 11.0 10 3/uL [...] Narrative [facility] - 2024 6:29 AM EDT us Eliud Dailyo DO [facility] Final Result [facility] * (ABNORMAL) TB DRUG SCREEN RAPID (URINE) (10/06/2024 8:05 PM [...] us Kelin Bethea CNM [facility] Final Result [facility] * ALL MISCELLANEOUS TEST (10/06/2024 8:05 PM EDT) MISCELLANEOUS TEST COMMENT . [facility] Comment: Test Ordered: [id number] Barbiturates Confirmation, Ur Specimen Comment: ToxAssure, ToxAssure FLEX or MAT drug testing: Specimen Comment: -Technical component - Data analysis performed at Specimen Comment: [facility] [address], [address]. Specimen Comment: [phone]. Flat Sorter Processor Peggy Weldon MD BARBITURATES Negative MX Reference [...] developed and its performance characteristics determined by [employer]. It has not been cleared or approved by the Food and Drug Administration. Performed at: [employer] [facility] [employer] [address] [place] [id number] Flat Sorter Processor: Nimisha Teague [facility], Phone: [phone] Performed at: [facility] [employer] [id number] Flat Sorter Processor: Ender De Luna PhD, Phone: [phone] 10/06/2024 8:05 PM EDT 10/06/2024 8:38 PM EDT Narrative [facility] - 10/12/2024 12:08 AM EDT [id number] Barbiturates Confirmation, Ur us Kelin Bethea CNM [facility] Final Result [facility] * (ABNORMAL) [facility] CBC WITH PLATELET NO DIFFERENTIAL (10/06/2024 12:40 PM EDT) [facility] WBC 19.8(H) 4.0 - 11.0 10 3/uL [facility] RBC 3.88(L) 4.20 - 5.40 10 6/uL [facility]H HGB 11.3(L) 12.0 - 16.0 g/dL [facility] TBH HCT 33.0(L) 36.0 - 48.0 % [facility]H MCV 85.1 81.0 - 99.0 fL [facility] TB MCH 29.1 26.7 - 34.0 pg TBH TB MCHC 34.2 29.9 - 35.2 g/dL [facility] TBH RDW 13.4 11.0 - 15.0 % [facility] TBH PLT 293 150 - 450 10 3/uL [facility] TB MPV 13.1 9.5 - 13.5 fL [facility] 10/06/2024 12:4 0 PM EDT 10/06/2024 1:16 PM EDT Narrative [facility] - 10/06/2024 1:29 PM EDT us Kelinmckay [facility] Final Result Performing Organization Address City/[facility]/ZIP Co de Phone Number [facility] * (ABNORMAL) STREPTOCCOUS, GROUP B CULTURE (09/09/2024 7:54 AM EDT) Pathologist [facility] MICRO NUMBER [id number] [facility] SPECIMEN QUALITY Adequate QUEST SOURCE VAGINAL/ANOR [...] Performing Organization Information Site ID: QPT Name: [facility] Address: [address] [place] [address], [address] [place] [id number] Director: Gregorio Yates MD us Kelin Bethea [...] dates and prior ultrasound. Dictated and transcribed 08/08/2024/tm This [...] esult from Last 3 Months Insurance [place]ICAID [place] [employer] [place] Care Teams Gaming Cage Cashier Relationship Specialty Start Date End Date Unallocated, Noms Provider, [address] [place], [place] [id number] PCP - General Family Medicine 04/24/24
--- OUTSIDE RECORDS SUMMARY | 2024-10-15 10:07 | XMS_ITS | CCD ---
Author Organization [facility] Care Team Providers Care Scientific Informatics Project Leader Name Role Phone REQUEST, DR ANTONIO LISTED Admitting Unavaila ble REQUEST, DR ANTONIO LISTED Attending Unavaila ble REQUEST, DR ANTONIO LISTED Consulting Unavaila ble QUINTON ., DR STONE Admitting Unavailable QUINTON ., DR STONE Attending Unavailable QUINTON ., DR STONE Consulting Unavailable QUINTON ., DR STONE Admitting Unavailable QUINTON ., DR STONE Attending Unavailable QUINTON ., DR STONE Consulting Unavailable PABLO DONG Admitting Unavailable PABLO DONG Attending Unavailable T[place], DR JAMES Auqino Consulting Unavailable PABLO DONG Consulting Unavailable Unavailable Primary Care Provider Unavailjohanna e Unallocated , Noms Provider Primary Care Provi helena ROHIT BETHEA Attending Unavailable FLORO, ROHIT Adry Referring Unavailable FLORO, ROHIT L Attending Unavailable FLORO, ROHIT L Attending Unavailable FLORO, ROHIT L Attending Unavailable FLORO, ROHIT L Attending Unavailable FLORO, ROHIT L Referring Unavailable FLORO, ROHIT L Referring Unavailable FLORO, ROHIT L Attending Unavailable FLORO, ROHIT L Attending Unavailable Medications Current Medications Medication Drug Class(es) Dates Sig (Normalized) Sig (Original) MV-Min-Fe Fum-FA-DHA ( 1 PO) (19 sources) MV-Min- Fe Fum-FA-DHA ( 1 PO) [...] 03-27-2022 Chronic Other and delivery including normal (9 sources) Normal ; Translations: [Encounter for supervision of normal first , first trimester] 03-24-2024 Episodic Other screening for suspected conditions (not mental disorders or infectious disease) (6 sources) Encounter for screening for malignant neoplasm of cervix; Translations: [Patient encounter status] Onset: 07-11-2022 Episodic Results Test Name Value Interpretation Reference Range Facility ALL CBC WITH AUTO DIFFon BASOPHILS ABSOLUTE AUTO 0 [facility] Basophils/100 WBC (Bld) 0.1 % Low 0.2 - 2.0 % [facility] Eosinophils/100 WBC (Bld) 0.1 % Low 0.9 - 7.0 % [facility] Erythrocyte distribution width (RBC) [Ratio] 13.9 % 11.0 - 15.0 % [facility] Hematocrit (Bld) [Volume fraction] 23.6 % Critically low 36.0 - 48.0 % [facility] Comment on above: RESULTS CALLED TO BRENDEN JUARES RN Hemoglobin (Bld) [Mass/Vol] 8 g/dL Low 12.0 - 16.0 g/dL [facility] IMMATURE GRANULOCYTES ABS AUTO 0.04 High [facility] Immature granulocytes/100 WBC (Bld) 0.3 % 0.0 - 0.5 % [facility] Interpretation and review of laboratory results Abnormal [facility] LYMPHOCYTES ABSOLUTE AUTO 3.1 [facility] Lymphocytes/100 WBC (Bld) 21.8 % 20.5 - 60.0 % [facility] MCH (RBC) [Entitic mass] 29.9 pg 26.7 - 34.0 pg [facility] MCHC (RBC) [Mass/Vol] 33.9 g/dL 29.9 - 35.2 g/dL [facility] MCV (RBC) [Entitic vol] 88.1 fL 81.0 - 99.0 fL [facility] MONOCYTES ABSOLUTE AUTO 1 High [facility] Monocytes/100 WBC (Bld) 7 % 1.7 - 12.0 % [facility] NEUTROPHILS ABSOLUTE AUTO 10.2 High [facility] Neutrophils/100 WBC (Bld) 70.7 % 43.0 - 75.0 % [facility] Platelet mean volume (Bld) [Entitic vol] 12.2 fL 9.5 - [facility] [facility] TB PLT 205 [facility] RBC 2.68 Low [facility] WBC 14.4 High [facility] WITH PLATELET NO DI FFERENTIALon 10-06-2024 Erythrocyte distribution width (RBC) [Ratio] 13.4 % 11.0 - 15.0 % [facility] Hematocrit (Bld) [Volume fraction] 33 % Low 36.0 - 48.0 % [facility] Hemoglobin (Bld) [Mass/Vol] 11.3 g/dL Low 12.0 - 16.0 g/dL [facility] Interpretation and review of laboratory results Abnormal [facility] MCH (RBC) [Entitic mass] 29.1 pg 26.7 - 34.0 pg [facility] MCHC (RBC) [Mass/Vol] 34.2 g/dL 29.9 - 35.2 g/dL [facility] MCV (RBC) [Entitic vol] 85.1 fL 81.0 - 99.0 fL [facility] Platelet mean volume (Bld) [Entitic vol] 13.1 fL 9.5 - 13.5 fL [facility] PLT 293 [facility] RBC 3.88 Low [facility] TB WBC 19.8 High [facility] US OB FOLLOW UP TRANSABDOMIN AL APPROACHon 08-08-2024 US OB FOLLOW UP TRANSABDOMINAL APPROACH EXAM: OB Ultrasound: REASON FOR EXAM: Routine [...] radiologist. Normal Not Available US for pregnancyon TITLE OF EXAM: OB [...] anatomical survey not performed. Dictated and transcribed 03/25/24/dpd This report has been electronically signed and approved by the interpreting radiologist. IMAGING Lee Yost MD - 03/25/2024 TITLE OF EXAM: OB [...] anatomical survey not performed. Dictated and transcribed 03/25/24/dpd This report has been electronically signed and approved by the interpreting radiologist. [facility] US for pregnancyOrdered By: Lee Yost on 03-25-2024 [facility] [employer] Work Phone: US OB LIMITED 1+ FETUSESon [...] US for pregnancyon Radiology Study observation (narrative) [facility] US OB < 14 WEEKS EARLYon US [...] IMPRESSION: LMP is accurate. Dictated and transcribed 03/20/24/dpd This report has been electronically signed and approved by the interpreting radiologist. Normal Not Available PAP ACOG PANEL 2: 30 to 65on 07-19-2022 . . Normal [facility] Comment on above: Result Comment: Perf ormed at: WB Performed By: #### [id number] #### [facility] [address] [address] [address] Elise Arboleda Age Gdln ACOG Testing - Normal [facility] Comment on above: Performed By: #### [id number] #### [facility] [address] [address] [address] Elise Arboleda DIAGNOSIS: Comment [facility] Comment on above: Result Comment: NEGA TIVE FOR INTRAEPITHELIAL LESION OR MALIGNANCY. Performed at: WB Performed By: #### [id number] #### [facility] [address] [place] [address] Dr. Elise Arboleda HPV Aptima Negative Normal Negative [facility] Comment on above: Result Comment: This nucleic acid amplification test detects fourteen high-risk HPV types (16,18,31,33,35,39,45,51,52,56,58,59,66,68) without differentiation. Performed at: =G Performed By: #### [id number] #### [facility] [address] [address] [address] Elise Arboleda HPV Genotype Reflex Comment Normal [facility] Comment on above: Result Comment: Crit eria not met, HPV Genotype not performed. Performed at: WB Performed By: #### [id number] #### [facility] [address] [address] [address] Elise Arboleda Methodology: Comment [facility] Comment on above: Result Comment: This liquid based ThinPrep(R) pap test was screened with the use of an image guided system. Performed at: WB Performed By: #### [id number] #### [facility] [address] [place] [address] Dr. Elise Arboleda Note: Comment Normal [facility] Comment on above: Result Comment: The Pap smear is a screening test designed to aid in the detection of premalignant and malignant conditions of the uterine cervix. It is not a diagnostic procedure and should not be used as the sole means of detecting cervical cancer. Both false-positive and false-negative reports do occur. . Performed at: WB Performed By: #### [id number] #### [facility] [address] [address] [address] Elise Arboleda Performed by: Comment Normal [facility] Comment on above: Result Comment: Louis De Los Santos, Assisted Living Home Director (ASCP) Performed at: WB Performed By: #### [id number] #### [facility] [address] [place] [address] Dr. Elise Arboleda Specimen adequacy: Comment [facility] Comment on above: Result Comment: Sati sfactory for evaluation. Endocervical and/or squamous metaplastic cells (endocervical component) are present. Performed at: WB Performed By: #### [id number] #### [facility] [address] [place] [address] HEAD WO CONon [...] JAMES BHANDARI Date: 2022-05-15 13:15 Normal [facility] ARNALDO - QUALITATIVEo n 05-10-2022 , QUAL Negative Normal NEGATIVE [facility] Comment on above: Performed By: #### D ATPREG #### [facility] [address] [place] [address] Dr. Elise Arboleda CBC AUTO DIFFon 03-27-2022 BASO # 0.0 103/ul Normal 0.0-0.1 [facility] Comment on above: Performed By: #### C BC #### [facility] [address] [place] [address] Dr. Elise Arboleda Basophils/100 WBC (Bld) 0.6 % Normal 0.2-2.0 [facility] Comment on above: Performed By: #### C BC #### [facility] [address] [place] [address] Dr. Elise Arboleda EO # 0.1 103/ul Normal 0.0-0.7 [facility] Comment on above: Performed By: #### C BC #### [facility] [address] [place] [address] Dr. Elise Arboleda Eosinophils/100 WBC (Bld) 1.6 % Normal 0.9-7.0 [facility] Comment on above: Performed By: #### C BC #### [facility] [address] [place] [address] Dr. Elise Arboleda Erythrocyte distribution width (RBC) [Ratio] 12.3 % Normal 11.0-15.0 [facility] Comment on above: Performed By: #### C BC #### [facility] [address] [place] [address] Dr. Elise Arboleda Hematocrit (Bld) [Volume fraction] 38.4 % Normal 36.0-48.0 [facility] Comment on above: Performed By: #### C BC #### [facility] [address] [place] [address] Dr. Elise Arboleda Hemoglobin (Bld) [Mass/Vol] 12.9 g/dL Normal 12.0-16.0 [facility] Comment on above: Performed By: #### C BC #### [facility] [address] [place] [address] Dr. Elise Arboleda IG # 0.01 10e3/ul Normal 0.00-0.03 [facility] Comment on above: Performed By: #### C BC #### [facility] [address] [place] [address] Dr. Elise Arboleda IG % 0.1 % Normal 0.0-0.5 [facility] Comment on above: Performed By: #### C BC #### [facility] [address] [place] [address] Dr. Elise Arboleda LYMPH # 3.5 103/ul Normal 1.2-3.8 [facility] Comment on above: Performed By: #### C BC #### [facility] [address] [place] [address] Dr. Elise Arboleda Lymphocytes/100 WBC (Bld) 49.4 % Normal 20.5-60.0 [facility] Comment on above: Performed By: #### C BC #### [facility] [address] [place] [address] Dr. Elise Arboleda MANUAL DIFF REQ NO Normal [facility] Comment on above: Performed By: #### C BC #### [facility] [address] [place] [address] Dr. Elise Arboleda MCH (RBC) [Entitic mass] 30.6 pg Normal 26.7-34.0 [facility] Comment on above: Performed By: #### C BC #### [facility] [address] [place] [address] Dr. Elise Arboleda MCHC (RBC) [Mass/Vol] 33.6 g/dL Normal 29.9-35.2 [facility] Comment on above: Performed By: #### C BC #### [facility] [address] [place] [address] Dr. Elies Arboleda MCV (RBC) [Entitic vol] 91.2 fL Normal 81.0-99.0 [facility] Comment on above: Performed By: #### C BC #### [facility] [address] [place] [address] Dr. Elise Arboleda MONO # 0.5 103/ul Normal 0.3-0.8 [facility] Comment on above: Performed By: #### C BC #### [facility] [address] [place] [address] Dr. Elise Arboleda Monocytes/100 WBC (Bld) 6.6 % Normal 1.7-12.0 [facility] Comment on above: Performed By: #### C BC #### [facility] [address] [place] [address] Dr. Elise Arboleda NEUT # 2.9 103/ul Normal 1.4-6.5 [facility] Comment on above: Performed By: #### C BC #### [facility] [address] [place] [address] Dr. Elise Arboleda Neutrophils/100 WBC (Bld) 41.7 % Critically low 43.0-75.0 [facility] Comment on above: Performed By: #### C BC #### [facility] [address] [place] [address] Dr. Elise Arboleda Platelet mean volume (Bld) [Entitic vol] 11.8 fL Normal 9.5-13.5 [facility] Comment on above: Performed By: #### C BC #### [facility] [address] [place] [address] Dr. Elise Arboleda PLT 258 103/ul Normal 150-450 [facility] Comment on above: Performed By: #### C BC #### [facility] [address] [place] [address] Dr. Elise Arboleda RBC 4.21 106/ul Normal 4.20-5.40 [facility] Comment on above: Performed By: #### C BC #### [facility] [address] [place] [address] Dr. Elise Arboleda WBC 7.0 103/ul Normal 4.0-11.0 [facility] Comment on above: Performed By: #### C BC #### [facility] [address] [place] [address] Dr. Elise Arboleda FREE T4on 03-27-2022 Free T4 [Mass/Vol] 1.06 ng/dL Normal 0.76-1.46 [facility] Comment on above: Performed By: #### F T4 #### [facility] [address] [place] [address] Dr. Elise Arboleda GLYCOHEMOGLOBIN A1Con 11-14- 2022 ADA RECOMMENDATION SEE BELOW Normal [facility] Comment on above: Result Comment: ADA RECOMMENDED LIMIT 4.0 - 6.0 ADA THERAPEUTIC TARGET < 7.0 ACTION SUGGESTED > 7.0 Performed By: #### A 1C #### [facility] [address] [place] [address] Dr. Elise Arboleda Glucose [Mass/Vol] 105 mg/dL Normal [facility] Comment on above: Performed By: #### A 1C #### [facility] [address] [place] [address] Dr. Elise Arboleda HbA1c (Bld) [Mass fraction] 5.3 % Normal 4.5-6.2 [facility] Comment on above: Performed By: #### A 1C #### [facility] [address] [place] [address] Dr. Elise Arboleda TSHon 03-27-2022 TSH 0.837 uIU/mL Normal 0.358-3.740 [facility] Comment on above: Performed By: #### T SH #### [facility] [address] [place] [address] Dr. Elise Arboleda Vital Signs Date Time Vital Sign Value Performing Clinician Faci lity 09-22-2024 16:07-0400 Body mass index (BMI) [Ratio] 28.12 kg/m2 Rohit Bethea CN Work Phone: [facility] 09-22-2024 16:07-0400 Body weight 76.66 kg Rohit Bethea CN Work Phone: [facility] 09-22-2024 16:07-0400 Diastolic blood pressure 70 mm[Hg] Rohit Blancoo CN Work Phone: [facility] 09-22-2024 16:07-0400 Systolic blood pressure 110 mm[Hg] Rohit Blancoo CN Work Phone: [facility] 09-08-2024 17:31-0400 Body mass index (BMI) [Ratio] 28.62 kg/m2 Rohit Blancoo CN Work Phone: [facility] 09-08-2024 17:31-0400 Body weight 78.02 kg Rohit Bethea CNM Work Phone: [facility] 09-08-2024 17:31-0400 Diastolic blood pressure 80 mm[Hg] Rohit Blancoo CNM Work Phone: [facility] 09-08-2024 17:31-0400 Systolic blood pressure 122 mm[Hg] Rohit Blancoo CNM Work Phone: [facility] 04-24-2024 09:43-0500 Body mass index (BMI) [Ratio] 26.96 kg/m2 Rohit Blancoo CNM Work Phone: [facility] 04-24-2024 09:43-0500 Body weight 73.48 kg Rohit Blancoo CNM Work Phone: [facility] 04-24-2024 09:43-0500 Diastolic blood pressure 80 mm[Hg] Rohit Blancoo CNM Work Phone: [facility] 04-24-2024 09:43-0500 Systolic blood pressure 120 mm[Hg] Rohit Blancoo CNM Work Phone: [facility] 03-20-2024 15:41-0500 Body mass index (BMI) [Ratio] 27.12 kg/m2 Rohit Blancoo CNM Work Phone: [facility] 03-20-2024 15:41-0500 Body weight 73.94 kg Rohit Blancoo CNM Work Phone: [facility] Healthcare Encounters Encounter Date Encounter Type Care Provider Facility Start: 2024 End: 2024 [facility] Result Encounter Bertha Quinton DO Work Phone: [facility] Unsolicited Start: 2024 End: 2024 [facility] Result Encounter Bertha Quinton DO Work Phone: [facility] Unsolicited Start: 10-06-2024 End: 10-06-2024 [facility] Result Encounter Rohit Blancoo CNM Work Phone: [facility] Unsolicited Start: 10-06-2024 End: 10-06-2024 [facility] Result Encounter Rohit L Floro CNM Work Phone: [facility] Unsolicited Start: 09-22-2024 End: 09-22-2024 ambulatory ROHIT L FLORO Not Available Start: 09-22-2024 End: 09-22-2024 Office outpatient visit 15 minutes Rohit L Floro CNM Work Phone: [facility] Comment on above: Encounter for prenat al care of first , third trimester (Primary Dx) Start: 09-22-2024 End: 09-22-2024 Bamboo flowsheet Rohit L Floro CNM Work Phone: [facility] Start: 09-22-2024 End: 09-22-2024 Bamboo flowsheet Rohit L Floro CNM Work Phone: [facility] Start: 09-08-2024 End: 09-08-2024 ambulatory ROHIT L FLORO Not Available Start: 09-08-2024 End: 09-08-2024 Office outpatient visit 15 minutes Rohit L Floro CNM Work Phone: [facility] Comment on above: Encounter for prenat al care of first , third trimester (Primary Dx); screening for streptococcus B Start: 09-08-2024 End: 09-08-2024 Bamboo flowsheet Rohit L Floro CNM Work Phone: [facility] Start: 09-08-2024 End: 09-08-2024 Bamboo flowsheet Rohit L Floro CNM Work Phone: [facility] Start: 08-20-2024 End: 08-20-2024 ambulatory ROHIT L FLORO Not Available Start: 08-20-2024 End: 08-20-2024 Bamboo flowsheet Rohit L Floro CNM Work Phone: [facility] Start: 08-20-2024 End: 08-20-2024 Bamboo flowsheet Rohit L Floro CNM Work Phone: [facility] Start: 08-08-2024 End: 08-08-2024 ambulatory ROHIT L FLORO Not Available Start: 07-10-2024 End: 07-10-2024 ambulatory ROHIT L FLORO Not Available Start: 07-10-2024 End: 07-10-2024 Bamboo flowsheet Rohit L Floro CNM Work Phone: [facility] Start: 07-10-2024 End: 07-10-2024 Bamboo flowsheet Rohit L Floro CNM Work Phone: [facility] Start: 05-22-2024 End: 05-22-2024 Bamboo flowsheet Rohit L Floro CNM Work Phone: [facility] Start: 05-22-2024 End: 05-22-2024 Bamboo flowsheet Rohit L Floro CNM Work Phone: [facility] Start: 05-22-2024 End: 05-22-2024 ambulatory ROHIT L FLORO Not Available Start: 04-24-2024 End: 04-24-2024 Bamboo flowsheet Rohit [...] Facility: Start: 05-15-2022 End: 05-15-2022 ambulatory PABLO DONG Facility: Start: 05-10-2022 End: 05-11-2022 ambulatory NONE LISTED REQUEST Facility: Start: 03-27-2022 End: 03-28-[address] BERTHA ALCANTARA . Facility: Procedures Date Procedure Procedure Detail Performing Clinician Start: 2024 ALL CBC WITH AUTO DIFF Bertha Dailyo DO Work Phone: Start: 10-06-2024 [facility] CBC WITH PLATEL ET NO DIFFERENTIAL Rohit L Floro CNM Work Phone: Plan of Treatment Date Care Activity Detail Author Start: 01-12-2025 Influenza vaccination Influenz a Vaccine (Season Ended) [facility] Start: 2024 End: 2024 Patient encounter procedure 2024 9:30 AM EDT Routine [facility] [address] [place] [address] Rohit Bethea, [facility] [address] [place] [address] [facility] Start: 09-29-2024 End: 09-29-2024 Patient encounter procedure 09/29/2024 4:30 PM EDT Routine [facility] [address] [place] [id number] Rohit Bethea, [facility] [address] [place] [address] [facility] Start: 09-22-2024 End: 09-22-2024 Patient encounter procedure 09/22/2024 4:00 PM EDT Routine [facility] [address] [place] [address] Rohit Bethea, CN [address] [place] [address] [facility] Start: 09-15-2024 End: 09-15-2024 Patient encounter procedure 09/15/2024 5:15 PM EDT Routine [facility] [address] [place] [address] Rohit Bethea, [facility] [address] [place] [address] [facility] Start: 09-08-2024 End: 09-08-2025 STREPTOCCOUS, GROUP B CULTURE STREPTOCCOUS, GROUP B CULTURE Lab Routine screening for streptococcus B Expected: 09/08/2024 (Approximate), Expires: 09/08/2025 [facility] Work Phone: Comment on above: Expected: 09/08/2024 (Approximate), Expires: 09/08/2025 Start: 05-22-2024 End: 05-22-2024 Patient encounter procedure [facility] Comment on above: Arrived Start: 04-24-2024 End: 04-24-2025 US for US OB 14+ weeks anatomy scan Imaging Routine related condition in second trimester Expected: 04/24/2024, Expires: 04/24/2025 [facility] Work Phone: Comment on above: Expected: 04/24/2024 , Expires: 04/24/2025 Start: 04-24-2024 End: 04-24-2024 Patient encounter procedure 04/24/2024 9:30 AM EST Routine [facility] [address] [place] [address] Rohit Bethea, KRISTINEM [address] [place], [place] [id number] [facility] Start: 03-24-2024 End: 03-24-2025 [...] first trimester Expected: 03/24/2024 (Approximate), Expires: 03/24/2025 [facility] Healthcare Comment on above: Expected: 03/24/2024 (Approximate), Expires: 03/24/2025 Start: 03-24-2024 End: 03-24-2025 DRUG TOX MONITORIGN 6 W/ CONF,URINE DRUG TOX MONITORIGN 6 W/ CONF,URINE Lab Routine Encounter for supervision of normal first , first trimester Expected: 03/24/2024 (Approximate), Expires: 03/24/2025 [facility] Healthcare Comment on above: Expected: 03/24/2024 (Approximate), Expires: 03/24/2025 Start: 03-24-2024 End: 03-24-2025 Hemoglobin A1c/Hemoglobin.total in Blood Hemoglobin A1c Lab Routine Encounter for supervision of normal first , first trimester Expected: 03/24/2024 (Approximate), Expires: 03/24/2025 [facility] Comment on above: Expected: 03/24/2024 (Approximate), Expires: 03/24/2025 Start: 03-24-2024 End: 03-24-2025 Hepatitis B virus surface Ag [Presence] in Serum or Plasma by Immunoassay Hepatitis B surface antigen Lab Routine Encounter for supervision of normal first , first trimester Expected: 03/24/2024 (Approximate), Expires: 03/24/2025 [facility] Work Phone: Comment on above: Expected: 03/24/2024 (Approximate), Expires: 03/24/2025 Start: 03-24-2024 End: 03-24-2025 Hepatitis C virus Ab [Presence] in Serum or Plasma by Immunoassay Hepatitis C antibody Lab Routine Encounter for supervision of normal first , first trimester Expected: 03/24/2024 (Approximate), Expires: 03/24/2025 [facility] Healthcare Comment on above: Expected: 03/24/2024 (Approximate), Expires: 03/24/2025 Start: 03-24-2024 End: 03-24-2025 HIV-1/HIV-2 antigen/antibody combination immunoassay HIV-1 and HIV-2 antibodies Lab Routine Encounter for supervision of normal first , first trimester Expected: 03/24/2024 (Approximate), Expires: 03/24/2025 [facility] Healthcare Comment on above: Expected: 03/24/2024 (Approximate), Expires: 03/24/2025 Start: 03-24-2024 End: 03-24-2025 Neisseria gonorrhoeae DNA [Presence] in Cervical mucus by STANLEY with probe detection C. trachomatis / N. gonorrhoeae, DNA probe Pathology and Cytology Routine Encounter for supervision of normal first , first trimester Expected: 03/24/2024 (Approximate), Expires: 03/24/2025 [facility] Healthcare Comment on above: Expected: 03/24/2024 (Approximate), Expires: 03/24/2025 Start: 03-24-2024 End: 03-24-2025 Reagin Ab [Presence] in Serum by RPR RPR Lab Routine Encounter for supervision of normal first , first trimester Expected: 03/24/2024 (Approximate), Expires: 03/24/2025 [facility] Comment on above: Expected: 03/24/2024 (Approximate), Expires: 03/24/2025 Start: 03-24-2024 End: 03-24-2025 Rubella antibody, IgG Rubella antibody, IgG Lab Routine Encounter for supervision of normal first , first trimester Expected: 03/24/2024 (Approximate), Expires: 03/24/2025 [facility] Comment on above: Expected: 03/24/2024 (Approximate), Expires: 03/24/2025 Start: 03-24-2024 End: 03-24-2025 TSH W/REFLEX TO FT4 TSH W/REFLEX TO FT4 Lab Routine Encounter for supervision of normal first , first trimester Expected: 03/24/2024 (Approximate), Expires: 03/24/2025 [facility] Comment on above: Expected: 03/24/2024 (Approximate), Expires: 03/24/2025 Start: 03-24-2024 End: 03-24-2025 URINALYSIS MICROSCOPIC URINALYSIS MICROSCOPIC Lab Routine Encounter for supervision of normal first , first trimester Expected: 03/24/2024 (Approximate), Expires: 03/24/2025 [facility] Comment on above: Expected: 03/24/2024 (Approximate), Expires: 03/24/2025 Start: 03-20-2024 End: 03-20-2024 Professional / ancillary services management 03/20/2024 4:15 PM EST Ancillary Procedure [facility] [address] [facility] [address] [place] [id number] [facility] Start: 01-13-2024 Influenza vaccination Influenza Vacc ine (#1) [facility] Start: 07-16-2023 End: 07-16-2023 Patient encounter procedure 07/16/2023 10:00 AM EST Procedure Visit [facility] [address] [place] [address] Bertha Alcantara DO [address] [place] [address] [facility] Start: 10-06-2021 Screening for malign ant neoplasm of cervix [facility] Start: 10-06-2012 Screening for malign ant neoplasm of cervix Pap Smear [facility] Payers Date Payer Category Payer Medicaid [id number] 2024 Medicaid [id number] 1990 Unknown [id number] 2.16.84 [id number] 1990 Unknown [id number] 2.16.84 [id number] 1990 Unknown [id number] 2.16.84 0.1.034430.3.579.2.593 1991 Unknown [id number] 2.16.84 0.1.236655.3.579.2.1259 1991 Unknown [id number] 2.16.84 0.1.038525.3.579.2.1259 1991 Unknown [id number] 2.16.84 0.1.729440.3.579.2.9 1991 Unknown [id number] 2.16.84 0.1.068063.3.579.2.9 1991 Unknown [id number] 2.16.84 0.1.106948.3.579.2.1258 1991 Unknown [id number] 2.16.84 0.1.790139.3.579.2.1258 1991 Unknown [id number] 2.16.84 0.1.490014.3.579.2.1259 1958 Self-pay 1958 Unknown [id number] 1958 Unknown [id number] Unknown [id number] 2.16.84 [id number] Social History Date Type Detail Facility Tobacco smoking stat [facility] Tobacco smoking consumption unknown [facility] Start: 1990 Sex Assigned At Not on file [facility] Start: 03-20-2024 Gender identity Not on file [facility] Start: 03-20-2024 Tobacco smoking stat [facility] Never smoked tobacco [facility] Start: 03-20-2024 Tobacco use and exposure Smokeless t obacco non-user [facility] Start: 03-20-2024 End: 09-22-2024 Alcoholic beverage intake Ex-drinker (finding) [facility] Start: 03-20-2024 History of Social function [facility] Start: 01-13-2024 [facility] Equipment Procedure Code Equipment Code Equipment Origin al Text Equipment Identifier Dates 1 each by In Vit ro route in the morning and 1 each at noon and 1 each in the evening and 1 each before bedtime. Take with meals. Please fill whatever insurance will cover with lancets and test strips. [id number] Start: 08-27-2024 Clinical Notes 03-20-2024 to 09-22-2024 Rohit Bethea CNM - 09/22/2024 4:00 PM Chuck Bethea CNM - 09/08/2024 5:30 PM EDTRohit Bethea CNM - 04/24/2024 9:30 AM ESTTelephone Encounter - Cherry Roman - 04/22/2024 8:21 AM EST Note Date & Type Note Facility 09-22-2024 History of Presen t illness Narrative Subjective No chief complaint on file. Loretta Tesfaye is a 33 y.o. at 38w1d with [...] was prescribed a glucometer and sent to pharmacy. She did state she checked her blood sugars for two weeks. After that she no showed for an appt and then rescheduled. Today she states she did document them for 2 weeks and she will email them to us. Continue vitamin. Labs reviewed. GBS positive Expected mode of delivery Follow up in 1 week for a routine visit. documented in this encounter [facility] 09-08-2024 History of Presen t illness Narrative Subjective No chief complaint on file. Loretta Tesfaye is a 33 y.o. at 36w1d with a working estimated date of delivery of 10/05/2024, by Last Menstrual Period who presents for a routine visit. She denies vaginal bleeding, leakage of fluid, decreased movements, or contractions. OB History Para Term AB Living 1 SAB IAB Ectopic Multiple Live Births # Outcome Date GA Lbr Rocael/2nd Weight Sex Type Anes PTL Lv 1 Current Her is complicated by: hyperemesis gravidarum, Objective Physical Exam Weight: 172 lb Expected Total Weight Gain: 15 lb-25 lb Pregravid BMI: 27.12 Urine protein-negative Urine glucose-negative Assessment/Plan Diagnoses and all orders for this visit: Encounter for care of first , third trimester screening for streptococcus B - STREPTOCCOUS, GROUP B CULTURE; Future Continue vitamin. Labs reviewed. GBS taken. Expected mode of delivery Follow up in 1 week for a routine visit. documented in this encounter [facility] 04-24-2024 History of Presen t illness Narrative [...] a routine visit. documented in this encounter [facility] 04-22-2024 Telephone encounter Note Form atting of this note might be different from the original. Pt has a WIC appt at 9:30 and wanted to know if you could give her a proof of letter. She misplaced the one that [facility] gave her. But she is going to also call them to see if they kept a copy. [facility] 04-22-2024 Miscellaneous Notes Formattin g of this note might be different from the original. Pt has a WIC appt at 9:30 and wanted to know if you could give her a proof of letter. She misplaced the one that [facility] gave her. But she is going to also call them to see if they kept a copy. documented in this encounter [facility] 04-02-2024 Telephone encounter Note Form atting of [...] She found the bleeding when she wiped. [phone] [facility] 04-02-2024 Miscellaneous Notes Formattin g [...] She found the bleeding when she wiped. [phone] documented in this encounter [facility] 03-24-2024 Note Addended by: LINDA QUINONES on: 03/24/2024 11:54 AM Modules accepted: Orders [facility] 03-24-2024 Miscellaneous Notes Addended by: [...] pt. Thank you. documented in this encounter [facility] 03-24-2024 Note Addended by: LINDA QUINONES on: 03/24/2024 11:51 AM Modules accepted: Orders [facility] 03-24-2024 Telephone encounter Note Form atting of this note might be different from the original. Labs ordered [facility] 03-24-2024 Telephone encounter Note Form atting of [...] still nauseated. Please advise pt. Thank you. [facility] 03-20-2024 History of Presen t illness Narrative Subjective Loretta Tesfaye is a 33 y.o. at 11w4d with a working estimated date of delivery of 10/05/2024, by Last Menstrual Period who presents for an initial visit. This is planned. 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 PVU and all questions answered. We did discuss place of delivery. Patient should plan to go to [facility] for all services unless an emergency and they need to go to the closest ER. We can make other arrangements possibly if patient would like to deliver at another facility but I did explain I am now at [place] 100% of the time and would like to do all deliveries there. documented in this encounter [facility] Evaluation note Diagnosis Encounter for supervision of normal first , first trimester Abdominal pain during in first trimester Abdominal pain during in first trimester documented in this encounter [facility]* Diagnosis Encounter for care of first , second trimester- Primary related condition in second trimester [facility] Diagnosis Nausea/vomiting in - Primary Unspecified vomiting of , unspecified as to episode of care Encounter for supervision of other normal , second trimester documented [facility]* Diagnosis Encounter for care of first , third trimester- Primary screening for streptococcus B screening for Streptococcus B documented [facility] this [facility] Diagnosis Encounter for care of first , third trimester- Primary documented in this encounter [facility] Summary Purpose Family History No Family History Records FoundNo Family History Records Found Advance Directives No Advanced Directives Records FoundNo Advanced Directives Records Found Additional Source Comments INFORMATION SOURCE (unrecogn ized section and content) DATE CREATED AUTHOR 07/19/2022 [facility] DATE CREATED AUTHOR AUTHOR'S ORGANIZ ATION 09/27/[address] [facility] dical Specialists [facility] Care Teams (unrecognized sec tion and content) Scientific Informatics Project Leader Relationship Specialty Start Date End Date Unallocated, Tres Felipe MD [facility] [address] [facility] [place] [address] PCP - General Family Medicine 04/24/24 Scientific Informatics Project Leader Relationship Specialty Start Date End Date Unallocated, Tres Felipe MD [facility] [place] [address] PCP - General Family Medicine 04/24/24 Scientific Informatics Project Leader Relationship Specialty Start Date End Date Unallocated, Tres Felipe MD [address] [facility] [place] [address] PCP - General Family Medicine 04/24/24 Scientific Informatics Project Leader Relationship Specialty Start Date End Date Unallocated, Tres Felipe MD [facility] [address] [facility] [address] PCP - General Family Medicine 04/24/24 Scientific Informatics Project Leader Relationship Specialty Start Date End Date Unallocated, MD Jailyn Brown [facility] [place] [address] PCP - General Family Medicine 04/24/24 Scientific Informatics Project Leader Relationship Specialty Start Date End Date Unallocated, Tres Felipe MD [address] [place] [address] PCP - General Family Medicine 04/24/24 Scientific Informatics Project Leader Relationship Specialty Start Date End Date Unallocated, Tres Felipe MD [address] [place] [address] PCP - General Family Medicine 04/24/24 Scientific Informatics Project Leader Relationship Specialty Start Date End Date Unallocated, Tres Felipe MD [address] [place] [address] PCP - General Family Medicine 04/24/24 FOR [...] BE BASED ON THE PRIMARY CLINICAL RECORDS. [employer] [facility]. provides no warranty or guarantee of the accuracy or completeness of information in this document.
== END 2024-10-15 12:53 | disposition home or self-care (01) ==
LOC: FBCO 09:58
PROVIDERS: Visit Provider Midwife
DX: Z39.1 Encounter for care and examination of lactating mother (principal)
CPT/HCPCS: G0463

== ENCOUNTER 2024-10-17 08:10 | Outpatient (OUT) | payer MEDICAID, SELFPAY ==
--- OUTSIDE RECORDS SUMMARY | 2024-10-14 13:30 | XMS_ITS | Encounter Summary ---
Author Organization [facility] Address [address] [place] [address] Care Team Providers Care Lpn Medical Assistant Name Role Phone Unallocated, Noms Provider Primary Care Provi helena Reason for Visit * Reason Comments Care Encounter Details Date Type Department Care Team (Latest Contact Info) Description 10/14/2024 1:30 PM EDT Visit [facility] [address] [place] [phone] Kelin Bethea CNM [address] [place], [place] [phone] examination following delivery (Primary Dx) Social History [...] PM EDT Visit [facility] [address] [place] [address] Kelin Bethea CNM [address] [place] [address] documented as of this encounter Visit Diagnoses Diagnosis examination following delivery- Primary documented in this encounter Care Teams Lpn Medical Assistant Relationship Specialty Start Date End Date Unallocated, Noms Provider, [address] [place] [address] PCP - General Family Medicine 04/24/24 documented as of this encounter
--- OUTSIDE RECORDS SUMMARY | 2024-10-17 08:14 | XMS_ITS | Encounter Summary ---
Author Organization [facility] Address [address] [place] [address] Care Team Providers Care Supervisor Line Department Name Role Phone Unallocated, Noms Provider Primary Care Provi helena Encounter Details Date Type Department Care Team (Late st Contact Info) Description 04/02/2024 Clinisync Result Encounter [facility] External Department Unsolicited Rohit Bethea CNM [address] [place], [place] [id number] Social History Tobacco Use Types Packs/Day Years [...] PM EDT Visit [facility] [address] [place] [address] Rohit Bethea CNM [address] [place], [place] [id number] documented as of this encounter Procedures Procedure Name Priority Date/Time Associated Diagnosis Comments US OB L= 14 WEEKS FETUS 04/02/2024 2:43 PM EST documented in this encounter Results * US OB L= 14 WEEKS FETUS (04/02/2024 2:43 PM EST) Anatomical Region Laterality Modality Other 04/02/2024 2:43 PM EST Narrative 04/02/2024 2:45 PM EST [address] [address] Ultrasound Report Signed Patient: EVAN TESFAYE MR#: [id number] : 1990 Acct:[id number] Age/Sex: 33 / F ADM Date: 04/02/24 Loc: US Attending Dr: ROHIT BETHEA APRN, CNM Ordering Physician: ROHIT BETHEA APRN, CNM Date of Service: 04/02/24 Procedure(s): US OB <= 14 weeks fetus Accession Number(s): [id number] cc: ROHIT BETHEA APRN, CNM; Physician,Non-Staff M.DAyleen The [address] [id number] Patient Name: EVAN TESFAYE MRN: [facility]:[id number] date: 1990 Sex: F Assigned Patient Location: Current Patient Location: US Accession/Order Number: [id number] Exam Date: 04/02/2024 13:27 Report Date: 04/02/2024 [...] Signed By: 04/02/24 1445 DD/ 42 TD/TT: Director Of Emergency Nursing: Procedure Note Radiology, Radiologist, MD - 04/02/2024 [place] [address] Ultrasound Report Signed Patient: EVAN TESFAYE MMR#: [id number] : 1990Acct:[id number] Age/Sex: 33 / FADM Date: 04/02/24 Loc: US Attending Dr: ROHIT BETHEA APRN, CNM Ordering Physician: ROHIT BETHEA APRN, CNM Date of Service: 04/02/24 Procedure(s): US OB <= 14 weeks fetus Accession Number(s): [id number] cc: ROHIT BETHEA APRN, CNM; Physician,Non-Staff M.DAyleen The [place] [id number] Patient Name: EVAN TESFAYE MRN: [id number] date: 1990 Sex: F Assigned Patient Location: US Current Patient Location: US Accession/Order Number: [id number] Exam Date: 04/02/2024 13:27 Report Date: 04/02/2024 [...] Bhandari M.D. Signed By:04/02/241444 DD/ 42 TD/TT: Director Of Emergency Nursing: us Rohit CARMONAM [facility] Final Resu lt documented in this encounter Visit Diagnoses Not on filedocumented in this encounter Care Teams Supervisor Line Department Relationship Specialty Start Date End Date Unallocated, Noms Provider, [address] [place] [address] PCP - General Family Medicine 04/24/24 documented as of this encounter
--- OUTSIDE RECORDS SUMMARY | 2024-10-17 08:14 | XMS_ITS | Clinical Summary ---
Author Organization [facility] Address [address] [place] [address] Care Team Providers Care Traffic Operations Engineer Name Role Phone Unallocated, Noms Provider Primary [...] PM EDT Visit [facility] [address] [place] [address] Kelin Bethea CNM examination following delivery (Primary Dx) 2024 Clinisync Result Encounter [facility] External Department Unsolicited Eliud Alcantara DO 10/06/2024 Clinisync Result Encounter [facility] External Department Unsolicited Kelin Bethea CNM 09/22/2024 4:00 PM EDT Routine [facility] [address] [place] [address] Kelin Bethea CNM Encounter for care of first , third trimester (Primary Dx) 09/22/2024 Bamboo flowsheet [facility] [address] [place] [address] Kelin Bethea CNM 09/08/2024 5:30 PM EDT Routine [facility] [address] [place] [address] Kelin Bethea CNM Encounter for care of first , third trimester (Primary Dx); screening for streptococcus B; related condition in third trimester 09/08/2024 Bamboo flowsheet [facility] [address] [place] [address] Kelin Bethea CNM 08/20/2024 4:30 PM EDT Routine [facility] [address] [place] [address] Kelin Bethea CNM Screening for diabetes mellitus (DM) (Primary Dx); Encounter for care of first , third trimester 08/20/2024 Bamboo flowsheet [facility] [address] [place] [address] Kelin Bethea CNM 08/08/2024 11:00 AM EDT Ancillary Procedure [facility] [address] [address] related condition in third trimester 08/08/2024 Travel [...] Description 11/10/2024 5:00 PM EDT Visit [facility] [address] [place] [address] Kelin Bethea CNM [address] [place] [address] Health Maintenance Due Date Last Done Comments Pap Smear 10/06/2012 Cervical Cancer Screening 10/06/2021 HPV/Cotest 10/06/2021 Influenza Vaccine (Season Ended) 2025 Procedures Procedure Name Priority Date/Time Associated Diagnosis Comments ALL CBC WITH AUTO DIFF Routine 6:06 AM EDT AMPHETAMINES CONF, MS, UR Routine 10/06/2024 8:05 PM EDT ALL MISCELLANEOUS [...] - 2024 6:29 AM EDT us Eliud Alcantara DO [facility] Final Result Performing Organization Address City/[facility]/ZIP Co de Phone Number [facility] * AMPHETAMINES CONF, MS, UR (10/06/2024 8:05 PM EDT) Pathologist [facility] AMPHETCONFUR.1 Negative Cvgoyc=122 [facility] Comment: Amphetamine test includes Amphetamine and Methamphetamine. Performed at: - [facility] [address] [place], [place] [id number] Data Network Architect: Edna Gonsalez PhD, Phone: [phone] 10/06/2024 8:05 PM EDT 10/06/2024 8:38 PM EDT Narrative [facility] - 10/16/2024 1:00 PM EDT Kelin CARMONA [facility] Final Result Performing Organization Address City/[facility] Co de Phone Number [facility] TB * (ABNORMAL) [facility] DRUG SCREEN RAPID (URINE) (10/06/2024 8:05 PM EDT) Pathologist [facility] CANNABINOID SCREEN URINE NEGATIVE NEGATIVE [facility] PHENCYCLIDINE [...] Narrative [facility] - 10/06/2024 8:40 PM EDT Kelin CARMONA [facility] Final Result [facility] * ALL MISCELLANEOUS TEST (10/06/2024 8:05 PM EDT) Pathologist [facility] MISCELLANEOUS TEST COMMENT . [facility] Comment: Test Ordered: [id number] Barbiturates Confirmation, Ur Specimen Comment: ToxAssure, ToxAssure FLEX or MAT drug testing: Specimen Comment: -Technical component - Data analysis performed at Specimen Comment: [address], [address]. Specimen Comment: [phone]. Data Network Architect Peggy Weldon MD BARBITURATES Negative MX Reference [...] developed and its performance characteristics determined by [employer]. It has not been cleared or approved by the Food and Drug Administration. Performed at: [facility] [address] [id number] Data Network Architect: Nimisha Teague PhrAL, Phone: [phone] Performed at: [address] [id number] Data Network Architect: Ender De Luna PhD, Phone: [phone] 10/06/2024 8:05 PM EDT 10/06/2024 8:38 PM EDT Narrative [facility] - 10/12/2024 12:08 AM EDT [id number] Barbiturates Confirmation, Ur Kelin Bethea [facility] Final Result Performing Organization Address City/[facility]/ZIP Co de Phone Number [facility] TB * (ABNORMAL) HP CBC WITH PLATELET NO DIFFERENTIAL (10/06/2024 12:40 PM EDT) Pathologist [facility] TB WBC 19.8(H) 4.0 - 11.0 10 [...] Narrative [facility] - 10/06/2024 1:29 PM EDT Kelin Adry Blancoo [facility] Final Result [facility] * (ABNORMAL) STREPTOCCOUS, GROUP B CULTURE (09/09/2024 7:54 AM EDT) Pathologist [facility] MICRO NUMBER [id number] [facility] SPECIMEN QUALITY Adequate QUEST SOURCE VAGINAL/ANOR [...] Performing Organization Information Site ID: [id number] Name: [facility] Address: [address] [place] [address], [address] [place] [id number] Director: Gregorio Yates MD us Kelin Bethea [...] [employer] [place] Care Teams Traffic Operations Engineer Relationship Specialty Start Date End Date Unallocated, Noms Provider, [address] [place] [address] PCP - General Family Medicine 04/24/24
--- OUTSIDE RECORDS SUMMARY | 2024-10-17 08:14 | XMS_ITS | Encounter Summary ---
Author Organization [facility] Address [address] [place] [address] Care Team Providers Care Carbonizer Name Role Phone Unallocated, Noms Provider Primary Care Provi helena Encounter Details Date Type Department Care Team (Late st Contact Info) Description 2024 Clinisync Result Encounter [facility] External Department Unsolicited Eliud Alcantara, DO [address] [facility] [address] [place], [place] [id number] Social History Tobacco Use Types Packs/Day Years [...] PM EDT Visit [facility] [address] [place] [address] Kelin Bethea, KRISTINEM [address] [place], [place] [phone] documented as of this encounter Procedures Procedure Name Priority Date/Time Associated Diagnosis Comments ALL CBC WITH AUTO DIFF Routine 2024 6:06 AM EDT documented in this encounter Results * (ABNORMAL) ALL CBC WITH AUTO DIFF (2024 6:06 AM EDT) [facility] WBC 14.4(H) 4.0 - 11.0 10 3/uL [...] on filedocumented in this encounter Care Teams Carbonizer Relationship Specialty Start Date End Date Unallocated, Noms Provider, [address] [place] [address] PCP - General Family Medicine 04/24/24 documented as of this encounter
--- OUTSIDE RECORDS SUMMARY | 2024-10-17 08:14 | XMS_ITS | Encounter Summary ---
Author Organization [facility] Address [address] [place] [address] Care Team Providers Care Chief Technologist Name Role Phone Unallocated, Noms Provider Primary Care Provi helena Encounter Details Date Type Department Care Team (Late st Contact Info) Description 10/06/2024 Clinisync Result Encounter [facility] External Department Unsolicited Kelin Bethea CNM [address] [place], [place] [id number] Social History Tobacco Use Types Packs/Day Years [...] PM EDT Visit [facility] OB [address] [place] [address] Kelin Bethea CNM [address] [place], [place] [phone] documented as of this encounter Procedures Procedure Name Priority Date/Time Associated Diagnosis Comments AMPHETAMINES CONF, MS, UR Routine 10/06/2024 8:05 PM EDT [facility] DRUG SCREEN RAPID (URINE) Routine 10/06/2024 8:05 PM EDT ALL MISCELLANEOUS TEST Routine 8:05 PM EDT [facility] CBC WITH PLATELET NO DIFFERENTIAL Routine 10/06/2024 12:40 PM EDT documented in this encounter Results * AMPHETAMINES CONF, MS, UR (10/06/2024 8:05 PM EDT) Pathologist [facility] [place] AMPHETCONFUR.1 Negative Mycjgf=815 [facility] Comment: Amphetamine test includes Amphetamine and Methamphetamine. Performed at: [facility] [address] [place], [place] [id number] Shipyard Laborer: Edna Gonsalez PhD, Phone: [phone] 10/06/2024 8:05 PM EDT 10/06/2024 8:38 PM EDT Narrative [facility] - 10/16/2024 1:00 PM EDT Kelin [facility] Final Result [facility] * ALL MISCELLANEOUS TEST (10/06/2024 8:05 PM EDT) Pathologist [facility] [place] MISCELLANEOUS TEST COMMENT . [facility] Comment: Test Ordered: [id number] Barbiturates Confirmation, Ur Specimen Comment: ToxAssure, ToxAssure FLEX or MAT drug testing: Specimen Comment: -Technical component - Data analysis performed at Specimen Comment: [facility], [place], [address]. Specimen Comment: [phone]. Shipyard Laborer Peggy Weldon MD BARBITURATES Negative MX Reference [...] developed and its performance characteristics determined by [facility]. It has not been cleared or approved by the Food and Drug Administration. Performed at: [facility] [address] [id number] Shipyard Laborer: Nimisha Teague PhrNJ, Phone: [phone] Performed at: [address] [id number] Shipyard Laborer: Ender De Luna PhD, Phone: [phone] 10/06/2024 8:05 PM EDT 10/06/2024 8:38 PM EDT Narrative [facility] - 10/12/2024 12:08 AM EDT [id number] Barbiturates Confirmation, Ur Kelin Bethea CNM [facility] Final Result [facility] * (ABNORMAL) TB DRUG SCREEN RAPID (URINE) [...] [facility] Final Result Performing Organization Address City/[facility]/ZIP Co de Phone Number [facility] * (ABNORMAL) HP CBC WITH PLATELET NO [...] CL[facility] - 10/06/2024 1:29 PM EDT Kelin Rider [place] [facility] Final Result [facility] documented in this encounter Visit Diagnoses Not on filedocumented in this encounter Care Teams Chief Technologist Relationship Specialty Start Date End Date Unallocated, Noms Provider, [place] [address] PCP - General Family Medicine 04/24/24 documented as of this encounter
--- OUTSIDE RECORDS SUMMARY | 2024-10-17 08:14 | XMS_ITS | Encounter Summary ---
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 Name Role Phone Unallocated, Noms Provider Primary Care Provi helena Encounter Details Date Type Department Care Team (Late st Contact Info) Description 05/16/2024 Clinisync Result Encounter [facility] External Department Unsolicited Rohit Bethea CNM [address] [place], [place] [phone] Social History Tobacco Use Types Packs/Day Years [...] PM EDT Visit [facility] OB [address] [place] [address] Rohit Bethea CNM [address] [place], [place] [phone] documented as of this encounter Procedures Procedure Name Priority Date/Time Associated Diagnosis Comments OB ANATOMY 05/16/2024 7:23 AM EST documented in this encounter Results * US OB ANATOMY (05/16/2024 7:23 AM EST) Anatomical Region Laterality Modality Other 05/16/2024 7:23 AM EST Narrative 05/16/2024 7:25 [place] [address] Ultrasound Report Signed Patient: EVAN TESFAYE MR#: [id number] : 1990 Acct:[id number] Age/Sex: 33 / F ADM Date: 05/15/24 Loc: US Attending Dr: ROHIT BETHEA APRN, CNM Ordering Physician: ROHIT BETHEA APRN, CNM Date of Service: 05/15/24 Procedure(s): US OB anatomy Accession Number(s): [id number] cc: ROHIT BETHEA APRN, CNM; Physician,Non-Staff M.D. The [place] [id number] Patient Name: EVAN TESFAYE MRN: [facility]:[id number] date: 1990 Sex: F Assigned Patient Location: US Current Patient Location: Accession/Order Number: [id number] Exam Date: 05/15/2024 17:13 Report Date: 05/16/2024 07:23 At the request of: ROHIT BETHEA Procedure: US OB anatomy EXAMINATION: US OB anatomy HISTORY: 2nd trimester Q26.92 COMPARISON: No relevant comparison available. TECHNIQUE: Transabdominal sonographic examination was performed for obstetrical and evaluation. FINDINGS: Number: 1 Heart Rate: 146.74 bpm H.B. /min Amniotic Fluid Volume: Subjectively normal position: Cephalic presentation, variable lie Placental Location: ANTERIOR, the placental edge is 5.6 cm from the internal os Cervix Length: 3.39 cm , closed Normal anatomy: Lateral ventricles, cerebellum, posterior fossa, nose, lips, orbits, four-chamber heart, RVOT, LVOT, diaphragm, stomach, kidneys, abdominal cord insertion, bladder, umbilical arteries, three-vessel cord, spine, extremities BIOMETRY: BPD: 4.81 cm; 20 weeks 4 days; 86.10 % HC: 17.47 cm; 20 weeks 0 days; 62.80 % AC: 15.11 cm; 20 weeks 2 days; 70.60 % FL: 3.38 cm; 20 weeks 4 days; 78.20 % EFW:352.60 g; 89.10 %, 12 ounces FL/AC: 22.36 FL/BPD: 70.21 HC/AC: 1.16 GESTATIONAL AGE: Age by EDC: 19 weeks 4 days BHUPENDRA by EDC: 2024-10-05 Age by current US: 20 weeks 3 days BHUPENDRA by current US: 2024-09-29 US/US OB anatomy IMPRESSION: Normal anatomy scan *Reference: [employer] Practice Guideline for the performance of Obstetric Ultrasound Examinations, February 11, 2007. Electronically authenticated by: JAMES BHANDARI Date: 05/16/2024 07:23 Dictated By: James Bhandari M.D. Signed By: 05/16/24724 DD/ 2 TD/TT: Hide Handler: Procedure Note Radiology, Radiologist, MD - 05/16/2024 [place] [address] Ultrasound Report Signed Patient: EVAN TESFAYE MMR#: [id number] : 1990Acct:[id number] Age/Sex: 33 / FADM Date: 05/15/24 Loc: US Attending Dr: ROHIT BETHEA APRN, CNM Ordering Physician: ROHIT BETHEA APRN, CNM Date of Service: 05/15/24 Procedure(s): US OB anatomy Accession Number(s): [id number] cc: ROHIT BETHEA APRN, CNM; Physician,Non-Staff M.DAyleen [facility] [place] [address] Patient Name: EVAN TESFAYE MRN: [id number] date: 1990 Sex: F Assigned Patient Location: US Current Patient Location: Accession/Order Number: [id number] Exam Date: 05/15/2024 17:13 Report Date: 05/16/2024 07:23 At the request of: ROHIT BETHEA Procedure: US OB anatomy EXAMINATION: US OB anatomy HISTORY: 2nd trimester Q26.92 COMPARISON: No relevant comparison available. TECHNIQUE: Transabdominal sonographic examination was performed for obstetrical and evaluation. FINDINGS: Number: 1 Heart Rate: 146.74 bpm H.B. /min Amniotic Fluid Volume: Subjectively normal position: Cephalic presentation, variable lie Placental Location: ANTERIOR, the placental edge is 5.6 cm from theinternal os Cervix Length: 3.39 cm , closed Normal anatomy: Lateral ventricles, cerebellum, posterior fossa, nose,lips, orbits, four-chamber heart, RVOT, LVOT, diaphragm, stomach, kidneys,abdominal cord insertion, bladder, umbilical arteries, three-vessel cord, spine, extremities BIOMETRY: BPD: 4.81 cm; 20 weeks 4 days; 86.10 % HC: 17.47 cm; 20 weeks 0 days; 62.80 % AC: 15.11 cm; 20 weeks 2 days; 70.60 % FL: 3.38 cm; 20 weeks 4 days; 78.20 % EFW:352.60 g; 89.10 %, 12 ounces FL/AC: 22.36 FL/BPD: 70.21 HC/AC: 1.16 GESTATIONAL AGE: Age by EDC: 19 weeks 4 days BHUPENDRA by EDC: 2024-10-05 Age by current US: 20 weeks 3 days BHUPENDRA by current US: 2024-09-29 US/US OB anatomy IMPRESSION: Normal anatomy scan *Reference: [employer] Practice Guideline for the performance of Obstetric Ultrasound Examinations, February 11, 2007. Electronically authenticated by: JAMES BHANDARI Date: 05/16/2024 07:23 Dictated By: James Bhandari M.D. 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
--- OUTSIDE RECORDS SUMMARY | 2024-10-17 08:31 | XMS_ITS | CCD ---
Author Organization [facility] Care Team Providers Care Microsoft Exchange Administrator Name Role Phone REQUEST, DR PACO LISTED [...] STONE Consulting Unavailable PABLO DONG Admitting Unavailable LETITIA, PABLO Majano Attending Unavailable [place] PABLO, DR JAMES Aquino Consulting Unavailable PABLO DONG Consulting Unavailable Unavailable Primary Care Provider Unavailjohanna e Unallocated , Noms Provider Primary Care Provi helena FLORO, ROHIT L Attending Unavailable FLORO, ROHIT [...] WITH AUTO DIFFon BASOPHILS ABSOLUTE AUTO 0 [facility] Basophils/100 WBC (Bld) 0.1 % Low 0.2 - 2.0 % [facility] Eosinophils/100 WBC (Bld) 0.1 % Low 0.9 - 7.0 % [facility] Erythrocyte distribution width (RBC) [Ratio] 13.9 % 11.0 - 15.0 % [facility] Hematocrit (Bld) [Volume fraction] 23.6 % Critically low 36.0 - 48.0 % [facility] Comment on above: RESULTS CALLED TO BRENDEN JUARES RN Hemoglobin (Bld) [Mass/Vol] 8 g/dL Low 12.0 - 16.0 g/dL [facility] IMMATURE GRANULOCYTES ABS AUTO 0.04 High [facility] Immature granulocytes/100 WBC (Bld) 0.3 % 0.0 - 0.5 % [facility] Interpretation and review of laboratory results Abnormal [facility] LYMPHOCYTES ABSOLUTE AUTO 3.1 [facility] Lymphocytes/100 WBC (Bld) 21.8 % 20.5 - 60.0 % [facility] MCH (RBC) [Entitic mass] 29.9 pg 26.7 - 34.0 pg [facility] MCHC (RBC) [Mass/Vol] 33.9 g/dL 29.9 - 35.2 g/dL [facility] MCV (RBC) [Entitic vol] 88.1 fL 81.0 - 99.0 fL [facility] MONOCYTES ABSOLUTE AUTO 1 High [facility] Monocytes/100 WBC (Bld) 7 % 1.7 - 12.0 % [facility] NEUTROPHILS ABSOLUTE AUTO 10.2 High [facility] Neutrophils/100 WBC (Bld) 70.7 % 43.0 - 75.0 % [facility] Platelet mean volume (Bld) [Entitic vol] 12.2 fL 9.5 - 13.5 [facility]L [facility] PLT 205 [facility] RBC 2.68 Low [facility] WBC 14.4 High [facility] HMHP CBC WITH PLATELET NO DI FFERENTIALon 10-06-2024 Erythrocyte distribution width (RBC) [Ratio] 13.4 % 11.0 - 15.0 % [facility] Hematocrit (Bld) [Volume fraction] 33 % Low 36.0 - 48.0 % [facility] Hemoglobin (Bld) [Mass/Vol] 11.3 g/dL Low 12.0 - 16.0 g/dL [facility] Interpretation and review of laboratory results Abnormal [facility] MCH (RBC) [Entitic mass] 29.1 pg 26.7 - 34.0 pg [facility] MCHC (RBC) [Mass/Vol] 34.2 g/dL 29.9 - 35.2 g/dL [facility] MCV (RBC) [Entitic vol] 85.1 fL 81.0 - 99.0 fL [facility] Platelet mean volume (Bld) [Entitic vol] 13.1 fL 9.5 - 13.5 fL [facility] TBH PLT 293 [facility] RBC 3.88 Low [facility] TB WBC 19.8 High [facility] US OB FOLLOW UP TRANSABDOMIN AL [...] signed and approved by the interpreting radiologist. [facility] US for pregnancyOrdered By: Lee Yost on 03-25-2024 [facility] [employer] Work Phone: US OB LIMITED 1+ FETUSESon [...] US for pregnancyon Radiology Study observation (narrative) [facility] US OB < 14 WEEKS EARLYon [...] 30 to 65on 07-19-2022 . . Normal [facility] Comment on above: Result Comment: Perf ormed at: WB Performed By: #### [id number] #### [facility] [address] [place] [address] Dr. Elise Arboleda Age Gdln ACOG Testing 30-65 Normal [facility] Comment on above: Performed By: #### [id number] #### [facility] [address] [place] [address] Dr. Elise Arboleda DIAGNOSIS: Comment Normal [facility] Comment on above: Result Comment: NEGA TIVE FOR INTRAEPITHELIAL LESION OR MALIGNANCY. Performed at: WB Performed By: #### [id number] #### [facility] [address] [place] [address] Dr. Elise Arboleda HPV Aptima Negative Normal Negative [facility] Comment on above: Result Comment: This nucleic acid amplification test detects fourteen high-risk HPV types (16,18,31,33,35,39,45,51,52,56,58,59,66,68) without differentiation. Performed at: =G Performed By: #### [id number] #### [facility] [address] [place] [address] Dr. Elise Arboleda HPV Genotype Reflex Comment Normal [facility] Comment on above: Result Comment: Crit eria not met, HPV Genotype not performed. Performed at: WB Performed By: #### [id number] #### [facility] [address] [place] [address] Dr. Elise Arboleda Methodology: Comment Normal [facility] Comment on above: Result Comment: This liquid based ThinPrep(R) pap test was screened with the use of an image guided system. Performed at: WB Performed By: #### [id number] #### [facility] [address] [place] [address] Dr. Elise Arboleda Note: Comment Normal [facility] Comment on above: Result Comment: The Pap smear is a screening test designed to aid in the detection of premalignant and malignant conditions of the uterine cervix. It is not a diagnostic procedure and should not be used as the sole means of detecting cervical cancer. Both false-positive and false-negative reports do occur. . Performed at: WB Performed By: #### [id number] #### [facility] [address] [address] [address] Elise Arboleda Performed by: Comment Normal [facility] Comment on above: Result Comment: Louis De Los Santos, Board Writer (ASCP) Performed at: WB Performed By: #### [id number] #### [facility] [address] [address] [address] Elise Arboleda Specimen adequacy: Comment Normal [facility] Comment on above: Result Comment: Sati sfactory for evaluation. Endocervical and/or squamous metaplastic cells (endocervical component) are present. Performed at: WB Performed By: #### [id number] #### [facility] [address] [place] [address] HEAD WO CONon [...] JAMES BHANDARI Date: 2022-05-15 13:15 Normal [facility] ARNALDO - QUALITATIVEo n 05-10-2022 , QUAL Negative Normal NEGATIVE [facility] Comment on above: Performed By: #### D ATPREG #### [facility] [address] [place] [address] Dr. Elise Arboleda CBC AUTO DIFFon 03-27-2022 BASO # 0.0 103/ul Normal 0.0-0.1 [facility] Comment on above: Performed By: #### C BC #### [facility] [address] [place] [address] Dr. Elise Arboleda Basophils/100 WBC (Bld) 0.6 % Normal 0.2-2.0 [facility] Comment on above: Performed By: #### C BC #### [facility] [address] [place] [address] Dr. Elise Arboleda EO # 0.1 103/ul Normal 0.0-0.7 [facility] Comment on above: Performed By: #### C BC #### [facility] [address] [place] [address] Dr. Elise Arboleda Eosinophils/100 WBC (Bld) 1.6 % Normal 0.9-7.0 [facility] Comment on above: Performed By: #### C BC #### [facility] [address] [place] [address] Dr. Elise Arboleda Erythrocyte distribution width (RBC) [Ratio] 12.3 % Normal 11.0-15.0 [facility] Comment on above: Performed By: #### C BC #### [facility] [address] [place] [address] Dr. Elise Arboleda Hematocrit (Bld) [Volume fraction] 38.4 % Normal 36.0-48.0 [facility] Comment on above: Performed By: #### C BC #### [facility] [address] [place] [address] Dr. Elise Arboleda Hemoglobin (Bld) [Mass/Vol] 12.9 g/dL Normal 12.0-16.0 [facility] Comment on above: Performed By: #### C BC #### [facility] [address] [place] [address] Dr. Elise Arboleda IG # 0.01 10e3/ul Normal 0.00-0.03 [facility] Comment on above: Performed By: #### C BC #### [facility] [address] [place] [address] Dr. Elise Arboleda IG % 0.1 % Normal 0.0-0.5 [facility] Comment on above: Performed By: #### C BC #### [facility] [address] [place] [address] Dr. Elise Arboleda LYMPH # 3.5 103/ul Normal 1.2-3.8 [facility] Comment on above: Performed By: #### C BC #### [facility] [address] [place] [address] Dr. Elise Arboleda Lymphocytes/100 WBC (Bld) 49.4 % Normal 20.5-60.0 [facility] Comment on above: Performed By: #### C BC #### [facility] [address] [place] [address] Dr. Elise Arboleda MANUAL DIFF REQ NO Normal [facility] Comment on above: Performed By: #### C BC #### [facility] [address] [place] [address] Dr. Elise Arboleda MCH (RBC) [Entitic mass] 30.6 pg Normal 26.7-34.0 [facility] Comment on above: Performed By: #### C BC #### [facility] [address] [place] [address] Dr. Elise Arboleda MCHC (RBC) [Mass/Vol] 33.6 g/dL Normal 29.9-35.2 [facility] Comment on above: Performed By: #### C BC #### [facility] [address] [place] [address] Dr. Elise Arboleda MCV (RBC) [Entitic vol] 91.2 fL Normal 81.0-99.0 [facility] Comment on above: Performed By: #### C BC #### [facility] [address] [place] [address] Dr. Elise Arboleda MONO # 0.5 103/ul Normal 0.3-0.8 [facility] Comment on above: Performed By: #### C BC #### [facility] [address] [place] [address] Dr. Elise Arboleda Monocytes/100 WBC (Bld) 6.6 % Normal 1.7-12.0 [facility] Comment on above: Performed By: #### C BC #### [facility] [address] [place] [address] Dr. Elise Arboleda NEUT # 2.9 103/ul Normal 1.4-6.5 [facility] Comment on above: Performed By: #### C BC #### [facility] [address] [place] [address] Dr. Elise Arboleda Neutrophils/100 WBC (Bld) 41.7 % Critically low 43.0-75.0 [facility] Comment on above: Performed By: #### C BC #### [facility] [address] [place] [address] Dr. Elise Arboleda Platelet mean volume (Bld) [Entitic vol] 11.8 fL Normal 9.5-13.5 [facility] Comment on above: Performed By: #### C BC #### [facility] [address] [place] [address] Dr. Elise Arboleda PLT 258 103/ul Normal 150-450 [facility] Comment on above: Performed By: #### C BC #### [facility] [address] [place] [address] Dr. Elise Arboleda RBC 4.21 106/ul Normal 4.20-5.40 [facility] Comment on above: Performed By: #### C BC #### [facility] [address] [place] [address] Dr. Elise Arboleda WBC 7.0 103/ul Normal 4.0-11.0 [facility] Comment on above: Performed By: #### C BC #### [facility] [address] [place] [address] Dr. Elise Arboleda FREE T4on 03-27-2022 Free T4 [Mass/Vol] 1.06 ng/dL Normal 0.76-1.46 [facility] Comment on above: Performed By: #### F T4 #### [facility] [address] [place] [address] Dr. Elise Arboleda GLYCOHEMOGLOBIN A1Con 2021 ADA RECOMMENDATION SEE BELOW Normal [facility] Comment on above: Result Comment: ADA RECOMMENDED LIMIT 4.0 - 6.0 ADA THERAPEUTIC TARGET < 7.0 ACTION SUGGESTED > 7.0 Performed By: #### A 1C #### [facility] [address] [place] [address] Dr. Elise Arboleda Glucose [Mass/Vol] 105 mg/dL Normal [facility] Comment on above: Performed By: #### A 1C #### [facility] [address] [place] [address] Dr. Elise Arboleda HbA1c (Bld) [Mass fraction] 5.3 % Normal 4.5-6.2 [facility] Comment on above: Performed By: #### A 1C #### [facility] [address] [place] [address] Dr. Elise Arboleda TSHon 03-27-2022 TSH 0.837 uIU/mL Normal 0.358-3.740 [facility] Comment on above: Performed By: #### T SH #### [facility] [address] [place] [address] Dr. Elise Arboleda Vital Signs Date Time Vital Sign Value Performing Clinician Jane lity 09-22-2024 16:07-0400 Body mass index (BMI) [Ratio] 28.12 kg/m2 Rohit Bethea CN Work Phone: [facility] 09-22-2024 16:07-0400 Body weight 76.66 [facility] 09-22-2024 16:07-0400 Diastolic blood pressure 70 mm[Hg] Rohit Blancoo CN Work Phone: [facility] 09-22-2024 16:07-0400 Systolic blood pressure 110 mm[Hg] Rohit Bellao CN Work Phone: [facility] 09-08-2024 17:31-0400 Body mass index (BMI) [Ratio] 28.62 kg/m2 [facility] 09-08-2024 17:31-0400 Body weight 78.02 kg Rohit Floro CNM Work Phone: [facility] 09-08-2024 17:31-0400 Diastolic blood pressure 80 mm[Hg] Rohit Blancoo CNM Work Phone: [facility] 09-08-2024 17:31-0400 Systolic blood pressure 122 mm[Hg] Rohit Blancoo CNM Work Phone: [facility] 04-24-2024 09:43-0500 Body mass index (BMI) [Ratio] 26.96 kg/m2 Rohit Blancoo CNM Work Phone: [facility] 04-24-2024 09:43-0500 Body weight 73.48 kg Rohit Bethea CNM Work Phone: [facility] 04-24-2024 09:43-0500 Diastolic blood pressure 80 mm[Hg] Rohit Bethea CNM Work Phone: [facility] 04-24-2024 09:43-0500 Systolic blood pressure 120 mm[Hg] Rohit Blancoo CNM Work Phone: [facility] 03-20-2024 15:41-0500 Body mass index (BMI) [Ratio] 27.12 kg/m2 Rohit Bethea CNM Work Phone: [facility] 03-20-2024 15:41-0500 Body weight 73.94 kg Rohit Bethea CNM Work Phone: [facility] Healthcare Encounters Encounter Date Encounter Type Care Provider Facility Start: 10-14-2024 ambulatory ROHIT Adry BETHEA Not Damari ilable Start: 2024 End: 2024 [facility] Result Encounter [...] 2024 ALL CBC WITH AUTO DIFF Bertha Alcantara DO Work Phone: Start: 10-06-2024 [facility] CBC WITH PLATEL ET NO DIFFERENTIAL Rohit Bethea CNM Work Phone: Plan of Treatment Date Care Activity Detail Author Start: 01-12-2025 Influenza vaccination Influenz a Vaccine (Season Ended) [facility] Start: 2024 End: 2024 Patient encounter procedure 2024 9:30 AM EDT Routine [facility] [address] [facility] [place] [address] Rohit Bethea, CN [address] [facility] [place] [address] [facility] Start: 09-29-2024 End: 09-29-2024 Patient encounter procedure 09/29/2024 4:30 PM EDT Routine [facility] [address] [facility] [place] [address] Rohit Bethea, CN [address] [facility] [place] [address] [facility] Start: 09-22-2024 End: 09-22-2024 Patient encounter procedure 09/22/2024 4:00 PM EDT Routine [facility] [address] [facility] [address] Rohit Bethea, CN [address] [facility] [place] [address] [facility] Start: 09-15-2024 End: 09-15-2024 Patient encounter procedure 09/15/2024 5:15 PM EDT Routine [facility] [address] [facility] [place] [address] Rohit Bethea, CN [address] [facility] [place] [address] [facility] Start: 09-08-2024 End: 09-08-2025 [...] AM EST Routine [facility] [address] [place] [address] Rohit Bethea CN [address] [place], [place] [id number] [facility] Start: 03-24-2024 End: 03-24-2025 [...] first trimester Expected: 03/24/2024 (Approximate), Expires: 03/24/2025 [facility] Healthcare Comment on above: Expected: 03/24/2024 (Approximate), Expires: 03/24/2025 Start: 03-24-2024 End: 03-24-2025 CBC panel - Blood by Automated count CBC Lab Routine Encounter for supervision of normal first , first trimester Expected: 03/24/2024 (Approximate), Expires: 03/24/2025 [facility] Healthcare Comment on above: Expected: 03/24/2024 (Approximate), Expires: 03/24/2025 Start: 03-24-2024 End: 03-24-2025 DRUG TOX MONITORIGN 6 W/ CONF,URINE DRUG TOX MONITORIGN 6 W/ CONF,URINE Lab Routine Encounter for supervision of normal first , first trimester Expected: 03/24/2024 (Approximate), Expires: 03/24/2025 [facility] Healthcare Comment on above: Expected: 03/24/2024 (Approximate), Expires: 03/24/2025 Start: 03-24-2024 End: 03-24-2025 Hemoglobin A1c/Hemoglobin.total in Blood Hemoglobin A1c Lab Routine Encounter for supervision of normal first , first trimester Expected: 03/24/2024 (Approximate), Expires: 03/24/2025 [facility] Healthcare Comment on above: Expected: 03/24/2024 (Approximate), Expires: 03/24/2025 Start: 03-24-2024 End: 03-24-2025 Hepatitis B virus surface Ag [Presence] in Serum or Plasma by Immunoassay Hepatitis B surface antigen Lab Routine Encounter for supervision of normal first , first trimester Expected: 03/24/2024 (Approximate), Expires: 03/24/2025 [facility] Healthcare Work Phone: Comment on above: Expected: 03/24/2024 (Approximate), Expires: 03/24/2025 Start: 03-24-2024 End: 03-24-2025 Hepatitis C virus Ab [Presence] in Serum or Plasma by Immunoassay Hepatitis C antibody Lab Routine Encounter for supervision of normal first , first trimester Expected: 03/24/2024 (Approximate), Expires: 03/24/2025 [facility] Healthcare Comment on above: Expected: 03/24/2024 (Approximate), Expires: 03/24/2025 Start: 03-24-2024 End: 03-24-2025 HIV-1/HIV-2 antigen/antibody combination immunoassay HIV-1 and HIV-2 antibodies Lab Routine Encounter for supervision of normal first , first trimester Expected: 03/24/2024 (Approximate), Expires: 03/24/2025 [facility] Healthcare Comment on above: Expected: 03/24/2024 (Approximate), Expires: 03/24/2025 Start: 03-24-2024 End: 03-24-2025 Neisseria gonorrhoeae DNA [Presence] in Cervical mucus by STANLEY with probe detection C. trachomatis / N. gonorrhoeae, DNA probe Pathology and Cytology Routine Encounter for supervision of normal first , first trimester Expected: 03/24/2024 (Approximate), Expires: 03/24/2025 [facility] Healthcare Comment on above: Expected: 03/24/2024 (Approximate), Expires: 03/24/2025 Start: 03-24-2024 End: 03-24-2025 Reagin Ab [Presence] in Serum by RPR RPR Lab Routine Encounter for supervision of normal first , first trimester Expected: 03/24/2024 (Approximate), Expires: 03/24/2025 [facility] Healthcare Comment on above: Expected: 03/24/2024 (Approximate), Expires: 03/24/2025 Start: 03-24-2024 End: 03-24-2025 Rubella antibody, IgG Rubella antibody, IgG Lab Routine Encounter for supervision of normal first , first trimester Expected: 03/24/2024 (Approximate), Expires: 03/24/2025 [facility] Healthcare Comment on above: Expected: 03/24/2024 (Approximate), Expires: 03/24/2025 Start: 03-24-2024 End: 03-24-2025 TSH W/REFLEX TO FT4 TSH W/REFLEX TO FT4 Lab Routine Encounter for supervision of normal first , first trimester Expected: 03/24/2024 (Approximate), Expires: 03/24/2025 [facility] Healthcare Comment on above: Expected: 03/24/2024 (Approximate), Expires: 03/24/2025 Start: 03-24-2024 End: 03-24-2025 URINALYSIS MICROSCOPIC URINALYSIS MICROSCOPIC Lab Routine Encounter for supervision of normal first , first trimester Expected: 03/24/2024 (Approximate), Expires: 03/24/2025 [facility] Comment on above: Expected: 03/24/2024 (Approximate), Expires: 03/24/2025 Start: 03-20-2024 End: 03-20-2024 Professional / ancillary services management 03/20/2024 4:15 PM EST Ancillary Procedure [facility]TR[facility] [address] [place] [address] [facility] Start: 01-13-2024 Influenza vaccination Influenza Vacc ine (#1) [facility] Start: 07-16-2023 End: 07-16-2023 Patient encounter procedure 07/16/2023 10:00 AM EST Procedure Visit [facility] OB [address] [place] [id number] Bertha Alcantara, DO [address] [facility] [place] [address] [facility] OB Start: 10-06-2021 Screening for malign ant neoplasm of cervix [facility] Healthcare Start: 10-06-2012 Screening for malign ant neoplasm of cervix Pap Smear [facility] Payers Date Payer Category Payer Medicaid [id number] 2024 Medicaid [id number] 1990 Unknown [id number] 2.16.84 [id number] 1991 Unknown [id number] 2.16.84 [id number] 1991 Unknown [id number] 2.16.84 [id number] 1991 Unknown [id number] 2.16.8 [id number] 1991 Unknown [id number] 2.16.84 0.1.067291.3.579.2.9 1991 Unknown [id number] 2.16.84 [id number] 1991 Unknown [id number] 2.16.84 [id number] 1991 Unknown [id number] 2.16.84 [id number] 1991 Unknown [id number] 2.16.84 [id number] 1991 Unknown [id number] 2.16.84 [id number] 1991 Unknown [id number] 2.16.84 0.1.028051.3.579.2.9 1959 Self-pay 1959 Unknown [id number] 1959 Unknown [id number] Unknown [id number] 2.16.84 [id number] Social History Date Type Detail Facility Tobacco smoking stat [facility] Tobacco smoking consumption unknown [facility] Healthcare Start: 1990 Sex Assigned At Not on file [facility] Start: 03-20-2024 Gender identity Not on file [facility] Start: 03-20-2024 Tobacco smoking stat [facility] Never smoked tobacco [facility] Start: 03-20-2024 Tobacco use and exposure Smokeless t obacco non-user [facility] Start: 03-20-2024 End: 09-22-2024 Alcoholic beverage intake Ex-drinker (finding) [facility] Start: 03-20-2024 History of Social function [facility] Start: 01-13-2024 [facility] Medical Equipment Procedure Code Equipment Code Equipment Origin al Text Equipment Identifier Dates 1 each by In Vit ro route in the morning and 1 each at noon and 1 each in the evening and 1 each before bedtime. Take with meals. Please fill whatever insurance will cover with lancets and test strips. [id number] Start: 08-27-2024 Clinical Notes 03-20-2024 to 09-22-2024 Rohit Bethea CNM - 09/22/2024 4:00 PM EDTRohit Bethea CNM - 09/08/2024 5:30 PM EDMartinez Bethea CNM - 04/24/2024 9:30 AM ESTTelephone [...] a routine visit. documented in this encounter [facility] 09-08-2024 History of Presen t illness [...] a routine visit. documented in this encounter [facility] 04-24-2024 History of Presen t illness [...] a routine visit. documented in this encounter [facility] 04-22-2024 Telephone encounter Note Form atting of this note might be different from the original. Pt has a [facility] appt at 9:30 and wanted to know if you could give her a proof of letter. She misplaced the one that [facility] gave her. But she is going to also call them to see if they kept a copy. [facility] 04-22-2024 Miscellaneous Notes Formattin g of this note might be different from the original. Pt has a [facility] appt at 9:30 and wanted to know if you could give her a proof of letter. She misplaced the one that [facility] gave her. But she is going to also call them to see if they kept a copy. documented in this encounter [facility] 04-02-2024 Telephone encounter Note Form atting [...] She found the bleeding when she wiped. [phone] [facility] 04-02-2024 Miscellaneous Notes Formattin g of this [...] She found the bleeding when she wiped. [phone] documented in this encounter [facility] 03-24-2024 Note Addended by: LINDA QUINONES on: 03/24/2024 11:54 AM Modules accepted: Orders [facility] 03-24-2024 Miscellaneous Notes Addended by: LINDA REYES [...] pt. Thank you. documented in this encounter [facility] 03-24-2024 Note Addended by: LINDA QUINONES on: 03/24/2024 11:51 AM Modules accepted: Orders [facility] 03-24-2024 Telephone encounter Note Form atting of this note might be different from the original. Labs ordered [facility] 03-24-2024 Telephone encounter Note Form atting [...] still nauseated. Please advise pt. Thank you. [facility] 03-20-2024 History of Presen t illness Narrative Subjective Loretta Tesfaye is a 33 y.o. at 11w4d with a working estimated date of delivery of 10/05/2024, by Last Menstrual Period who presents for an initial visit. This is planned. No care team physician to display OB History Para Term AB Living 1 SAB IAB Ectopic Multiple Live Births # Outcome Date GA Lbr Rocael/2nd Weight Sex Type Anes PTL Lv 1 Current Her is complicated by: nausea and vomiting Patient referred by [facility] Gynecology History Last Pap 07/11/22 The [...] also given office phone number and [facility] number to call in case of an emergency or after hours needs. PVU and all questions answered. We did discuss place of delivery. Patient should plan to go to [facility] for all services unless an emergency and they need to go to the closest ER. We can make other arrangements possibly if patient would like to deliver at another facility but I did explain I am now at [place] 100% of the time and would like to do all deliveries there. documented in this encounter [facility] Evaluation note Diagnosis Encounter for supervision of [...] pital DATE CREATED AUTHOR AUTHOR'S ORGANIZ ATION 10/15/2024 [facility] Care Teams (unrecognized sec tion and content) [employer] Administrator Relationship Specialty Start Date End Date Unallocated, Tres Felipe MD [facility] [address] PCP - General Family Medicine 04/24/24 [employer] Administrator Relationship Specialty Start Date End Date Unallocated, Tres Felipe MD [facility] [address] PCP - General Family Medicine 04/24/24 [employer] Administrator Relationship Specialty Start Date End Date Unallocated, Tres Felipe MD [facility] [address] [facility] [place] [address] PCP - General Family Medicine 04/24/24 [employer] Administrator Relationship Specialty Start Date End Date Unallocated, Tres Felipe MD [facility] [address] [facility] [place] [address] PCP - General Family Medicine 04/24/24 [employer] Administrator Relationship Specialty Start Date End Date Unallocated, Tres Felipe MD [facility] [address] [facility] [place] [address] PCP - General Family Medicine 04/24/24 [employer] Administrator Relationship Specialty Start Date End Date Unallocated, Tres Felipe MD [address] [place] [address] PCP - General Family Medicine 04/24/24 [employer] Administrator Relationship Specialty Start Date End Date Unallocated, Tres Felipe MD [address] [facility] [place] [address] PCP - General Family Medicine 04/24/24 [employer] Administrator Relationship Specialty Start Date End Date Unallocated, Tres Felipe MD [address] [place] [address] PCP - General Family Medicine 04/24/24 FOR [...] BE BASED ON THE PRIMARY CLINICAL RECORDS. [facility]. provides no warranty or guarantee of the accuracy or completeness of information in this document.
== END 2024-10-17 14:21 | disposition home or self-care (01) ==
LOC: FBCO 08:11
PROVIDERS: Visit Provider Midwife
DX: Z39.1 Encounter for care and examination of lactating mother (principal)

== ENCOUNTER 2024-12-16 08:10 | Outpatient (OUT) | payer MEDICAID, SELFPAY ==
--- OUTSIDE RECORDS SUMMARY | 2024-12-16 08:17 | XMS_ITS | CCD ---
Author Organization [facility] Care Team Providers Care Dental Billing Specialist Name Role Phone REQUEST, DR PACO LISTED [...] DONG Admitting Unavailable PABLO DONG Attending Unavailable ARAGON, DR JAMES Aquino Consulting Unavailable PABLO DONG Consulting Unavailable Unavailable Primary Care Provider Unavailjohanna e Unallocated , Noms Provider Primary Care Provi helena NAVINOLUIS FERNANDOROHIT Adry Attending Unavailable FLORO, ROHIT L Referring Unavailable [...] Drug Class(es) Dates Sig (Normalized) Sig (Original) ibuprofen 400 mg oral tablet (4 sources) Nonsteroidal Anti-inflammatory Drug Start: 10-08-2024 take 1 tablet by mouth every eight hours as needed for pain ibuprofen 400 MG tablet Take 400 mg by mouth every 8 (eight) hours if needed for moderate pain 10/08/2024 Active MV-Min-Fe Fum-FA-DHA ( 1 PO) (20 sources) MV-Min-Fe Fum-FA-DHA ( 1 PO) Take by mouth Active Completed/Discontinued Medications Medication Drug Class(es) Dates Sig (Normalized) Sig (Original) acetaminophen 325 mg / oxyCODONE hydrochloride 5 mg oral tablet (4 sources) Opioid Agonist Start: 10-08-2024 End: 11-10-2024 take 1 tablet by mouth every eight hours as needed for pain oxyCODONE-acetaminop hen (Percocet) 5-325 MG tablet Take 1 tablet by mouth every 8 (eight) hours if needed for moderate pain 10/08/2024 11/10/2024 Discontinued (Therapy completed) ondansetron 8 mg disintegrating oral tablet (8 [...] second trimester] 04-24-2024 Episodic Other complications of (4 sources) Vomiting of , unspecified; Translations: [Unspecified vomiting of , unspecified as to episode of care or not applicable] 03-20-2024 Episodic Other endocrine disorders (4 sources) Polycystic ovarian syndrome; Translations: [POLYCYSTIC OVARIAN SYNDROME] Onset: 03-27-2022 Chronic Other and delivery including normal (17 sources) Normal ; Translations: [Encounter for supervision of normal first , first trimester] 03-24-2024 Episodic Other screening for suspected conditions (not mental disorders or infectious disease) (8 sources) Encounter for screening for malignant neoplasm of cervix; Translations: [Patient encounter status] Onset: 07-11-2022 Episodic Results Test Name Value Interpretation Reference Range Facility ALL CBC WITH AUTO DIFFon BASOPHILS ABSOLUTE AUTO 0 [facility] Basophils/100 WBC (Bld) 0.1 % Low 0.2 - 2.0 % [facility] Eosinophils/100 WBC (Bld) 0.1 % Low 0.9 - 7.0 % [facility] Erythrocyte distribution width (RBC) [Ratio] 13.9 % 11.0 - 15.0 % [facility] Hematocrit (Bld) [Volume fraction] 23.6 % Critically low 36.0 - 48.0 % [facility] Comment on above: RESULTS CALLED TO BRENDEN JUARES RN Hemoglobin (Bld) [Mass/Vol] 8 g/dL Low 12.0 - 16.0 g/dL [facility] IMMATURE GRANULOCYTES ABS AUTO 0.04 High [facility] Immature granulocytes/100 WBC (Bld) 0.3 % 0.0 - 0.5 % [facility] Interpretation and review of laboratory results Abnormal [facility] LYMPHOCYTES ABSOLUTE AUTO 3.1 [facility] Lymphocytes/100 WBC (Bld) 21.8 % 20.5 - 60.0 % [facility] MCH (RBC) [Entitic mass] 29.9 pg 26.7 - 34.0 pg [facility] MCHC (RBC) [Mass/Vol] 33.9 g/dL 29.9 - 35.2 g/dL [facility] MCV (RBC) [Entitic vol] 88.1 fL 81.0 - 99.0 fL [facility] MONOCYTES ABSOLUTE AUTO 1 High [facility] Monocytes/100 WBC (Bld) 7 % 1.7 - 12.0 % [facility] NEUTROPHILS ABSOLUTE AUTO 10.2 High [facility] Neutrophils/100 WBC (Bld) 70.7 % 43.0 - 75.0 % [facility] Platelet mean volume (Bld) [Entitic vol] 12.2 fL 9.5 - 13.5 fL [facility] TBH EO # 0 [facility] TBH PLT 205 [facility] TB RBC 2.68 Low [facility] TBH WBC 14.4 High [facility] HMHP CBC WITH PLATELET NO DI FFERENTIALon 10-06-2024 Erythrocyte distribution width (RBC) [Ratio] 13.4 % 11.0 - 15.0 % [facility] Hematocrit (Bld) [Volume fraction] 33 % Low 36.0 - 48.0 % [facility] Hemoglobin (Bld) [Mass/Vol] 11.3 g/dL Low 12.0 - 16.0 g/dL [facility] Interpretation and review of laboratory results Abnormal [facility] MCH (RBC) [Entitic mass] 29.1 pg 26.7 - 34.0 pg [facility] MCHC (RBC) [Mass/Vol] 34.2 g/dL 29.9 - 35.2 g/dL [facility] MCV (RBC) [Entitic vol] 85.1 fL 81.0 - 99.0 fL [facility] Platelet mean volume (Bld) [Entitic vol] 13.1 fL 9.5 - 13.5 fL [facility] TB PLT 293 [facility] TB RBC 3.88 Low [facility] TBH WBC 19.8 High [facility] US OB FOLLOW UP TRANSABDOMIN [...] signed and approved by the interpreting radiologist. [facility] for pregnancyOrdered By: Lee Yost on 03-25-2024 [facility] [employer] Work Phone: OB LIMITED 1+ FETUSESon 1 05-24-2023 US [...] US for pregnancyon Radiology Study observation (narrative) [facility] US OB < 14 WEEKS [...] 30 to 65on 07-19-2022 . . Normal [facility] Comment on above: Result Comment: Perf ormed at: WB Performed By: #### [id number] #### [facility] [address] [place] [address] Dr. Elise Arboleda Age Gdln ACOG Testing 30-65 Normal [facility] Comment on above: Performed By: #### [id number] #### [facility] [address] [address] [address] Elise Arboleda DIAGNOSIS: Comment Normal [facility] Comment on above: Result Comment: NEGA TIVE FOR INTRAEPITHELIAL LESION OR MALIGNANCY. Performed at: WB Performed By: #### [id number] #### [facility] [address] [address] [address] Elise Arboleda HPV Aptima Negative Normal Negative [facility] Comment on above: Result Comment: This nucleic acid amplification test detects fourteen high-risk HPV types (16,18,31,33,35,39,45,51,52,56,58,59,66,68) without differentiation. Performed at: =G Performed By: #### [id number] #### [facility] [address] [address] [address] Elise Arboleda HPV Genotype Reflex Comment Normal [facility] Comment on above: Result Comment: Crit eria not met, HPV Genotype not performed. Performed at: WB Performed By: #### [id number] #### [facility] [address] [place] [address] Dr. Elise Arboleda Methodology: Comment Normal [facility] Comment on above: Result Comment: This liquid based ThinPrep(R) pap test was screened with the use of an image guided system. Performed at: WB Performed By: #### [id number] #### [facility] [address] [place] [address] Dr. Elise Arboleda Note: Comment Normal [facility] Comment on above: Result Comment: The Pap smear is a screening test designed to aid in the detection of premalignant and malignant conditions of the uterine cervix. It is not a diagnostic procedure and should not be used as the sole means of detecting cervical cancer. Both false-positive and false-negative reports do occur. . Performed at: WB Performed By: #### [id number] #### [facility] [address] [place] [address] Dr. Elise Arboleda Performed by: Comment Normal [facility] Comment on above: Result Comment: Louis De Los Santos, Mdm Sr (ASCP) Performed at: WB Performed By: #### [id number] #### [facility] [address] [place] [address] Dr. Elise Arboleda Specimen adequacy: Comment Normal [facility] Comment on above: Result Comment: Sati sfactory for evaluation. Endocervical and/or squamous metaplastic cells (endocervical component) are present. Performed at: WB Performed By: #### [id number] #### [facility] [address] [place] [address] HEAD WO CONon [...] JAMES BHANDARI Date: 2022-05-15 13:15 Normal [facility] ARNALDO - QUALITATIVEo n 05-10-2022 , QUAL Negative Normal NEGATIVE [facility] Comment on above: Performed By: #### D ATPREG #### [facility] [address] [place] [address] Dr. Elise Arboleda CBC AUTO DIFFon 03-27-2022 BASO # 0.0 103/ul Normal 0.0-0.1 [facility] Comment on above: Performed By: #### C BC #### [facility] [address] [place] [address] Dr. Elise Arboleda Basophils/100 WBC (Bld) 0.6 % Normal 0.2-2.0 [facility] Comment on above: Performed By: #### C BC #### [facility] [address] [place] [address] Dr. Elise Arboleda EO # 0.1 103/ul Normal 0.0-0.7 [facility] Comment on above: Performed By: #### C BC #### [facility] [address] [place] [address] Dr. Elise Arboleda Eosinophils/100 WBC (Bld) 1.6 % Normal 0.9-7.0 [facility] Comment on above: Performed By: #### C BC #### [facility] [address] [place] [address] Dr. Elise Arboleda Erythrocyte distribution width (RBC) [Ratio] 12.3 % Normal 11.0-15.0 [facility] Comment on above: Performed By: #### C BC #### [facility] [address] [place] [address] Dr. Elise Arboleda Hematocrit (Bld) [Volume fraction] 38.4 % Normal 36.0-48.0 [facility] Comment on above: Performed By: #### C BC #### [facility] [address] [address] [address] Elise Arboleda Hemoglobin (Bld) [Mass/Vol] 12.9 g/dL Normal 12.0-16.0 [facility] Comment on above: Performed By: #### C BC #### [facility] [address] [address] [address] Elise Arboleda IG # 0.01 10e3/ul Normal 0.00-0.03 [facility] Comment on above: Performed By: #### C BC #### [facility] [address] [place] [address] Dr. Elise Arboleda IG % 0.1 % Normal 0.0-0.5 [facility] Comment on above: Performed By: #### C BC #### [facility] [address] [place] [address] Dr. Elise Arboleda LYMPH # 3.5 103/ul Normal 1.2-3.8 [facility] Comment on above: Performed By: #### C BC #### [facility] [address] [place] [address] Dr. Elise Arboleda Lymphocytes/100 WBC (Bld) 49.4 % Normal 20.5-60.0 [facility] Comment on above: Performed By: #### C BC #### [facility] [address] [place] [address] Dr. Elise Arboleda MANUAL DIFF REQ NO Normal [facility] Comment on above: Performed By: #### C BC #### [facility] [address] [place] [address] Dr. Elise Arboleda MCH (RBC) [Entitic mass] 30.6 pg Normal 26.7-34.0 [facility] Comment on above: Performed By: #### C BC #### [facility] [address] [place] [address] Dr. Elise Arboleda MCHC (RBC) [Mass/Vol] 33.6 g/dL Normal 29.9-35.2 [facility] Comment on above: Performed By: #### C BC #### [facility] [address] [address] [address] Elise Arboleda MCV (RBC) [Entitic vol] 91.2 fL Normal 81.0-99.0 [facility] Comment on above: Performed By: #### C BC #### [facility] [address] [address] [address] Elise Arboleda MONO # 0.5 103/ul Normal 0.3-0.8 [facility] Comment on above: Performed By: #### C BC #### [facility] [address] [address] [address] Elise Arboleda Monocytes/100 WBC (Bld) 6.6 % Normal 1.7-12.0 [facility] Comment on above: Performed By: #### C BC #### [facility] [address] [place] [address] Dr. Elise Arboleda NEUT # 2.9 103/ul Normal 1.4-6.5 [facility] Comment on above: Performed By: #### C BC #### [facility] [address] [place] [address] Dr. Elise Arboleda Neutrophils/100 WBC (Bld) 41.7 % Critically low 43.0-75.0 [facility] Comment on above: Performed By: #### C BC #### [facility] [address] [place] [address] Dr. Elise Arboleda Platelet mean volume (Bld) [Entitic vol] 11.8 fL Normal 9.5-13.5 [facility] Comment on above: Performed By: #### C BC #### [facility] [address] [place] [address] Dr. Elise Arboleda PLT 258 103/ul Normal 150-450 [facility] Comment on above: Performed By: #### C BC #### [facility] [address] [place] [address] Dr. Elise Arboleda RBC 4.21 106/ul Normal 4.20-5.40 [facility] Comment on above: Performed By: #### C BC #### [facility] [address] [place] [address] Dr. Elise Arboleda WBC 7.0 103/ul Normal 4.0-11.0 [facility] Comment on above: Performed By: #### C BC #### [facility] [address] [place] [address] Dr. Elise Arboleda FREE T4on 03-27-2022 Free T4 [Mass/Vol] 1.06 ng/dL Normal 0.76-1.46 [facility] Comment on above: Performed By: #### F T4 #### [facility] [address] [place] [address] Dr. Elise Arboleda GLYCOHEMOGLOBIN A1Con 2021 ADA RECOMMENDATION SEE BELOW Normal [facility] Comment on above: Result Comment: ADA RECOMMENDED LIMIT 4.0 - 6.0 ADA THERAPEUTIC TARGET < 7.0 ACTION SUGGESTED > 7.0 Performed By: #### A 1C #### [facility] [address] [place] [address] Dr. Elise Arboleda Glucose [Mass/Vol] 105 mg/dL Normal [facility] Comment on above: Performed By: #### A 1C #### [facility] [address] [place] [address] Dr. Elise Arboleda HbA1c (Bld) [Mass fraction] 5.3 % Normal 4.5-6.2 [facility] Comment on above: Performed By: #### A 1C #### [facility] [address] [place] [address] Dr. Elise Arboleda TSHon 03-27-2022 TSH 0.837 uIU/mL Normal 0.358-3.740 [facility] Comment on above: Performed By: #### T SH #### [facility] [address] [place] [address] Dr. Elise Arboleda Vital Signs Date Time Vital Sign Value Performing Clinician Jane dunn 11-10-2024 17:13-0400 Body mass index (BMI) [Ratio] 25.13 kg/m2 Rohit CARMONA Work Phone: [facility] 11-10-2024 17:13-0400 Body weight 68.49 kg Rohit Floro CNM Work Phone: [facility] 11-10-2024 17:13-0400 Diastolic blood pressure 74 mm[Hg] Rohit Floro CNM Work Phone: [facility] 11-10-2024 17:13-0400 Systolic blood pressure 120 mm[Hg] Rohit Floro CNM Work Phone: [facility] 10-14-2024 13:42-0400 Body mass index (BMI) [Ratio] 25.13 kg/m2 Rohit Floro CNM Work Phone: [facility] 10-14-2024 13:42-0400 Body weight 68.49 kg Rohit Floro CNM Work Phone: [facility] 10-14-2024 13:42-0400 Diastolic blood pressure 80 mm[Hg] Rohit Floro CNM Work Phone: [facility] 10-14-2024 13:42-0400 Systolic blood pressure 122 mm[Hg] Rohit Floro CNM Work Phone: [facility] 09-22-2024 16:07-0400 Body mass index (BMI) [Ratio] 28.12 kg/m2 Rohit Floro CNM Work Phone: [facility] 09-22-2024 16:07-0400 Body weight 76.66 kg Rohit Floro CNM Work Phone: [facility] 09-22-2024 16:07-0400 Diastolic blood pressure 70 mm[Hg] Rohit Floro CNM Work Phone: [facility] 09-22-2024 16:07-0400 Systolic blood pressure 110 mm[Hg] Rohit Floro CNM Work Phone: [facility] 09-08-2024 17:31-0400 Body mass index (BMI) [Ratio] 28.62 kg/m2 Rohit Floro CNM Work Phone: [facility] 09-08-2024 17:31-0400 Body weight 78.02 kg Rohit Floro CNM Work Phone: [facility] 09-08-2024 17:31-0400 Diastolic blood pressure 80 mm[Hg] Rohit Floro CNM Work Phone: [facility] 09-08-2024 17:31-0400 Systolic blood pressure 122 mm[Hg] Rohit Floro CNM Work Phone: [facility] 08-20-2024 16:36-0400 Body mass index (BMI) [Ratio] 27.79 kg/m2 Rohit Floro CNM Work Phone: [facility] 08-20-2024 16:36-0400 Body weight 75.75 kg Rohit Floro CNM Work Phone: [facility] 08-20-2024 16:36-0400 Diastolic blood pressure 60 mm[Hg] Rohit Floro CNM Work Phone: [facility] 08-20-2024 16:36-0400 Systolic blood pressure 110 mm[Hg] Rohit Floro CNM Work Phone: [facility] 05-22-2024 09:21-0500 Body mass index (BMI) [Ratio] 27.12 kg/m2 Rohit Floro CNM Work Phone: [facility] 05-22-2024 09:21-0500 Body weight 73.94 kg Rohit Floro CNM Work Phone: [facility] 05-22-2024 09:21-0500 Diastolic blood pressure 78 mm[Hg] Rohit Floro CNM Work Phone: [facility] 05-22-2024 09:21-0500 Systolic blood pressure 118 mm[Hg] Rohit Floro CNM Work Phone: [facility] 04-24-2024 09:43-0500 Body mass index (BMI) [Ratio] 26.96 kg/m2 Rohit Floro CNM Work Phone: [facility] 04-24-2024 09:43-0500 Body weight 73.48 kg Rohit Blancoo CNM Work Phone: [facility] 04-24-2024 09:43-0500 Diastolic blood pressure 80 mm[Hg] Rohit Navino CNM Work Phone: [facility] 04-24-2024 09:43-0500 Systolic blood pressure 120 mm[Hg] Rohit Navino CNM Work Phone: [facility] 03-20-2024 15:41-0500 Body mass index (BMI) [Ratio] 27.12 kg/m2 Rohit Navino CNM Work Phone: [facility] 03-20-2024 15:41-0500 Body weight 73.94 kg Rohit Floro CNM Work Phone: [facility] Healthcare Encounters Encounter Date Encounter Type Care Provider Facility Start: 11-10-2024 End: 11-10-2024 ambulatory ROHIT L FLORO Not Available Start: 11-10-2024 End: 11-10-2024 Office outpatient visit 15 minutes Rohit L Floro CNM Work Phone: [facility] Comment on above: examinati on following delivery ([facility] (Primary Dx) Start: 10-14-2024 End: 10-14-2024 ambulatory ROHIT L FLORO Not Available Start: 10-14-2024 End: 10-14-2024 Office outpatient visit 15 minutes Rohit L Floro CNM Work Phone: [facility] Comment on above: examinati on following delivery (Primary Dx) Start: 2024 End: 2024 [facility] Result Encounter [...] FLORO Not Available Start: 08-20-2024 End: 08-20-2024 Office outpatient visit 15 minutes Rohit L Floro CNM Work Phone: [facility] Comment on above: Screening for diabet es mellitus (DM) (Primary Dx); Encounter for care of first , third trimester ([facility]) Start: 08-20-2024 End: 08-20-2024 Bamboo flowsheet Rohit [...] [facility] Start: 05-22-2024 End: 05-22-2024 Office outpatient visit 15 minutes Rohit L Floro CNM Work Phone: [facility] Comment on above: Encounter for prenat al care of first , second trimester ([facility]) (Primary Dx); Nausea/vomiting in ([facility]) Start: 05-22-2024 End: 05-22-2024 ambulatory ROHIT L [...] End: 07-11-[address] BERTHA ALCANTARA . Facility:[facility] Start: 05-15-2022 End: 05-15-2022 ambulatory PABLO DONG Facility:[facility] Start: 05-10-2022 End: 05-11-2022 ambulatory NONE LISTED REQUEST Facility:[facility] Start: 03-27-2022 End: 03-28-[address] BERTHA ALCANTARA . Facility: Procedures Date Procedure Procedure Detail Performing Clinician Start: 2024 ALL CBC WITH AUTO DIFF Bertha Alcantara DO Work Phone: Start: 10-06-2024 [facility] CBC WITH PLATEL ET NO DIFFERENTIAL Rohit Bethea CNM Work Phone: Plan of Treatment Date Care Activity Detail Author Start: 01-12-2025 Influenza vaccination [facility] Start: 11-10-2024 End: 11-10-2024 ambulatory 11/10/2024 5:00 PM EDT Visit [facility] [address] [facility] [place] [phone] Rohit Bethea CNM [address] [place] [address] [facility] Start: 2024 End: 2024 Patient encounter procedure 2024 9:30 AM EDT Routine [facility] [address] [place] [place] [id number] Rohit Bethea CNM [address] [place] [address] [facility] Start: 09-29-2024 End: 09-29-2024 Patient encounter procedure 09/29/2024 4:30 PM EDT Routine [facility] [address] [place] [place] [phone] Rohit Bethea, KRISTINEM [address] [place] [address] [facility] Start: 09-22-2024 End: 09-22-2024 Patient encounter procedure 09/22/2024 4:00 PM EDT Routine [facility] [address] [place] [place] [phone] Rohit Bethea, [facility] [address] [facility] [place] [address] [facility] Start: 09-15-2024 End: 09-15-2024 Patient encounter procedure 09/15/2024 5:15 PM EDT Routine [facility] [address] [place] [place] [phone] Neema Rohit L, [facility] [address] [facility] [place] [address] [facility] Start: 09-08-2024 End: 09-08-2025 [...] AM EST Routine [facility] [address] [place] [place] [phone] Rohit Bethea, CNM [address] [place] [address] [facility] Start: 03-24-2024 End: 03-24-2025 ABO/Rh ABO/Rh Lab Routine Encounter for supervision of normal first , first trimester Expected: 03/24/2024 (Approximate), Expires: 03/24/2025 [facility] Comment on above: Expected: 03/24/2024 (Approximate), Expires: 03/24/2025 Start: 03-24-2024 End: 03-24-2025 Antibody screen Antibody screen Lab Routine Encounter for supervision of normal first , first trimester Expected: 03/24/2024 (Approximate), Expires: 03/24/2025 [facility] Healthcare Comment on above: Expected: 03/24/2024 [...] first trimester Expected: 03/24/2024 (Approximate), Expires: 03/24/2025 [facility] Healthcare Comment on above: Expected: 03/24/2024 (Approximate), Expires: 03/24/2025 Start: 03-24-2024 End: 03-24-2025 Hemoglobin A1c/Hemoglobin.total in Blood Hemoglobin A1c Lab Routine Encounter for supervision of normal first , first trimester Expected: 03/24/2024 (Approximate), Expires: 03/24/2025 [facility] Healthcare Comment on above: Expected: 03/24/2024 (Approximate), Expires: 03/24/2025 Start: 03-24-2024 End: 03-24-2025 Hepatitis B virus surface Ag [Presence] in Serum or Plasma by Immunoassay Hepatitis B surface antigen Lab Routine Encounter for supervision of normal first , first trimester Expected: 03/24/2024 (Approximate), Expires: 03/24/2025 [facility] Work Phone: Comment on above: Expected: 03/24/2024 (Approximate), Expires: 03/24/2025 Start: 03-24-2024 End: 03-24-2025 Hepatitis C virus Ab [Presence] in Serum or Plasma by Immunoassay Hepatitis C antibody Lab Routine Encounter for supervision of normal first , first trimester Expected: 03/24/2024 (Approximate), Expires: 03/24/2025 [facility] Comment on above: Expected: 03/24/2024 (Approximate), Expires: 03/24/2025 Start: 03-24-2024 End: 03-24-2025 HIV-1/HIV-2 antigen/antibody combination immunoassay HIV-1 and HIV-2 antibodies Lab Routine Encounter for supervision of normal first , first trimester Expected: 03/24/2024 (Approximate), Expires: 03/24/2025 [facility] Comment on above: Expected: 03/24/2024 (Approximate), Expires: 03/24/2025 Start: 03-24-2024 End: 03-24-2025 Neisseria gonorrhoeae DNA [Presence] in Cervical mucus by STANLEY with probe detection C. trachomatis / N. gonorrhoeae, DNA probe Pathology and Cytology Routine Encounter for supervision of normal first , first trimester Expected: 03/24/2024 (Approximate), Expires: 03/24/2025 [facility] Comment on above: Expected: 03/24/2024 (Approximate), Expires: 03/24/2025 Start: 03-24-2024 End: 03-24-2025 Reagin Ab [Presence] in Serum by RPR RPR Lab Routine Encounter for supervision of normal first , first trimester Expected: 03/24/2024 (Approximate), Expires: 03/24/2025 [facility] Comment on above: Expected: 03/24/2024 (Approximate), Expires: 03/24/2025 Start: 03-24-2024 End: 03-24-2025 Rubella antibody, IgG Rubella antibody, IgG Lab Routine Encounter for supervision of normal first , first trimester Expected: 03/24/2024 (Approximate), Expires: 03/24/2025 [facility] Comment on above: Expected: 03/24/2024 (Approximate), Expires: 03/24/2025 Start: 03-24-2024 End: 03-24-2025 TSH W/REFLEX TO FT4 TSH W/REFLEX TO FT4 Lab Routine Encounter for supervision of normal first , first trimester Expected: 03/24/2024 (Approximate), Expires: 03/24/2025 [facility] Comment on above: Expected: 03/24/2024 (Approximate), Expires: 03/24/2025 Start: 03-24-2024 End: 03-24-2025 URINALYSIS MICROSCOPIC URINALYSIS MICROSCOPIC Lab Routine Encounter for supervision of normal first , first trimester Expected: 03/24/2024 (Approximate), Expires: 03/24/2025 [facility] Comment on above: Expected: 03/24/2024 (Approximate), Expires: 03/24/2025 Start: 03-20-2024 End: 03-20-2024 Professional / ancillary services management 03/20/2024 4:15 PM EST Ancillary Procedure [facility] [address] [place] [address] [facility] Start: 01-13-2024 Influenza vaccination Influenza Vacc ine (#1) [facility] Start: 07-16-2023 End: 07-16-2023 Patient encounter procedure 07/16/2023 10:00 AM EST Procedure Visit [facility] [address] [address] Bertha Alcantara, DO [address] [place] [address] [phone] (work) [facility] Start: 10-06-2021 Screening for malign ant neoplasm of cervix [facility] Start: 10-06-2012 Screening for malign ant neoplasm of cervix Pap Smear [facility] Payers Date Payer Category Payer Medicaid [id number] 2024 Medicaid [id number] 1991 Unknown [id number] 2.16.84 [id number] 1991 Unknown [id number] 2.16.84 0.1.341981.3.579.2.593 1991 Unknown [id number] 2.16.84 0.1.853605.3.579.2.593 1991 Unknown [id number] 2.16.8 [id number] 1991 Unknown [id number] 2.16.8 40.1.348271.3.579.2.9 1991 Unknown [id number] 2.16.84 0.1.241229.3.579.2.9 1991 Unknown [id number] 2.16.84 0.1.549458.3.579.2.1259 1991 Unknown [id number] 2.16.84 0.1.919501.3.579.2.1259 1991 Unknown [id number] 2.16.84 0.1.216466.3.579.2.9 1991 Unknown [id number] 2.16.84 0.1.078846.3.579.2.9 1991 Unknown [id number] 2.16.84 0.1.265907.3.579.2.9 1991 Unknown [id number] 2.16.84 0.1.136186.3.579.2.1259 1959 Self-pay 1959 Unknown [id number] 1959 Unknown [id number] Unknown [id number] 2.16.84 [id number] Social History Date Type Detail Facility Tobacco smoking stat [facility] Tobacco smoking consumption unknown [facility] Start: 1990 Sex Assigned At Not on file [facility] Start: 03-20-2024 End: 11-10-2024 Gender identity Not on file [facility] Start: 03-20-2024 Tobacco smoking stat [facility] Never smoked tobacco [facility] Start: 03-20-2024 Tobacco use and exposure Smokeless t obacco non-user [facility] Start: 03-20-2024 End: 11-10-2024 Alcoholic beverage intake Ex-drinker (finding) [facility] Start: 03-20-2024 End: 11-10-[address] [facility] Start: 01-13-2024 [facility] The thought of arleen lim myself has occurred to me Never [facility] Medical Equipment Procedure Code Equipment Code Equipment Origin al Text Equipment Identifier Dates 1 each by In Vit ro route in the morning and 1 each at noon and 1 each in the evening and 1 each before bedtime. Take with meals. Please fill whatever insurance will cover with lancets and test strips. [id number] Start: 08-27-2024 End: 11-10-2024 Clinical Notes 03-20-2024 to 11-10-2024 Rohit Bethea CNM - 11/10/2024 5:00 PM EDTRohit Bethea CNM - 10/14/2024 1:30 PM Chuck Bethea CNM - 09/22/2024 4:00 PM Chuck Bethea CNM - 09/08/2024 5:30 PM EDT Note Date & Type Note Facility 11-10-2024 History of Presen t illness Narrative Loretta Tesfaye is here for visit. She is 5 weeks . Complaints: has no unusual complaints Weeks at delivery: 39 week Type of delivery: , Low Transverse; primary Gender: male Baby is healthy: yes Breast or bottle feeding: breast Complaints or complications: no complications mood: well EPDS score at 6 weeks pp 8 patient denies depression, suicidal ideations. Contraception: none Resumed Sexual activity: no Resumed Menses: no EXAM: GENERAL APPEARANCE: alert, well appearing, in no apparent distress ASSESSMENT/PLAN: There are no diagnoses linked to this encounter. Recheck EPDS score in 2 weeks. normal exam documented in this encounter [facility] 10-14-2024 History of Presen t illness Narrative Loretta Tesfaye is here for visit. She is 8 [...] with palpation. All edges are well approximated, no discharge, drainage, bleeding or odor noted. ASSESSMENT/PLAN: There are no diagnoses linked to this encounter. normal exam documented in this encounter [facility] 09-22-2024 History of Presen t illness Narrative [...] a routine visit. documented in this encounter [facility] 09-08-2024 History of Presen t [...] a routine visit. documented in this encounter [facility] 08-20-2024 History of Presen t illness Narrative Subjective No chief complaint on file. Loretta Tesfaye is a 33 y.o. at 33w3d with a working estimated date of delivery of 10/05/2024, by Last Menstrual Period who presents for a routine visit. She denies vaginal bleeding, leakage of fluid, decreased movements, or contractions. OB History Para Term AB Living 1 SAB IAB Ectopic Multiple Live Births # Outcome Date GA Lbr Rocael/2nd Weight Sex Type Anes PTL Lv 1 Current Her is complicated by: Objective Physical Exam weight: 167 lb Expected Total Weight Gain: 15 lb-25 lb Pregravid BMI: 27.12 BP: 110/60 Urine protein Urine glucose Assessment/Plan Diagnoses and all orders for this visit: Screening for diabetes mellitus (DM) Encounter for care of first , third trimester ([facility]) Continue vitamin. Labs reviewed. GBS taken. Expected mode of delivery Follow up in 1 week for a routine visit. documented in this encounter [facility] 05-22-2024 History of Presen t illness Narrative Subjective No chief complaint on file. Loretta Tesfaye is a 33 y.o. at 20w4d with a working estimated date of delivery of 10/05/2024, by Last Menstrual Period who presents for a routine visit. She denies vaginal bleeding, leakage of fluid, decreased movements, or contractions. OB History Para Term AB Living 1 SAB IAB Ectopic Multiple Live Births # Outcome Date GA Lbr Rocael/2nd Weight Sex Type Anes PTL Lv 1 Current Her is complicated by: The following portions of the chart were reviewed this encounter and updated as appropriate: Objective Physical Exam weight: 163 lb Expected Total Weight Gain: 15 lb-25 lb Pregravid BMI: 27.12 BP: 118/78 Urine protein-negative Urine glucose-negative Labs: reviewed Imaging Assessment/Plan Diagnoses and all orders for this visit: Encounter for care of first , second trimester ([facility]) Nausea/vomiting in ([facility]) Continue vitamin. Labs reviewed. Rhogam GTT . Follow up in 4 weeks for a routine visit. documented in this encounter [facility] 04-24-2024 History of Presen t [...] a routine visit. documented in this encounter [facility] 04-22-2024 Telephone encounter Note Form atting of this note might be different from the original. Pt has a [facility] appt at 9:30 and wanted to know if you could give her a proof of letter. She misplaced the one that [facility] gave her. But she is going to also call them to see if they kept a copy. [facility] 04-22-2024 Miscellaneous Notes Formattin g of this note might be different from the original. Pt has a [facility] appt at 9:30 and wanted to know if you could give her a proof of letter. She misplaced the one that [facility] gave her. But she is going to also call them to see if they kept a copy. documented in this encounter [facility] 04-02-2024 Telephone encounter Note Form [...] She found the bleeding when she wiped. [phone] [facility] 04-02-2024 Miscellaneous Notes Formattin g [...] She found the bleeding when she wiped. [phone] documented in this encounter [facility] 03-24-2024 Note Addended by: LINDA QUINONES on: 03/24/2024 11:54 AM Modules accepted: Orders [facility] 03-24-2024 Miscellaneous Notes Addended by: [...] pt. Thank you. documented in this encounter [facility] 03-24-2024 Note Addended by: LINDA QUINONES on: 03/24/2024 11:51 AM Modules accepted: Orders [facility] 03-24-2024 Telephone encounter Note Form atting of this note might be different from the original. Labs ordered [facility] 03-24-2024 Telephone encounter Note Form atting [...] still nauseated. Please advise pt. Thank you. [facility] 03-20-2024 History of Presen t illness Narrative Subjective Loretta Tesfaye is a 33 y.o. at 11w4d with a working estimated date of delivery of 10/05/2024, by Last Menstrual Period who presents for an initial visit. This is planned. No care sample steamer to display OB History Para Term AB Living 1 SAB IAB Ectopic Multiple Live Births # Outcome Date GA Lbr Rocael/2nd Weight Sex Type Anes PTL Lv 1 Current Her is complicated by: nausea and vomiting Patient referred by [facility] Gynecology History Last Pap 07/11/22 The [...] also given office phone number and [facility] number to call in case of an emergency or after hours needs. PVU and all questions answered. We did discuss place of delivery. Patient should plan to go to [facility] for all services unless an emergency and they need to go to the closest ER. We can make other arrangements possibly if patient would like to deliver at another facility but I did explain I am now at [facility] 100% of the time and would like to do all deliveries there. documented in this encounter [facility] Evaluation note Diagnosis Encounter for supervision [...] trimester- Primary documented in this encounter [facility]* Diagnosis Encounter for care of first , second trimester ([facility])- Primary Nausea/vomiting in ([facility]) Unspecified vomiting of , unspecified as to episode of care documented in this encounter [facility]* Diagnosis examination following delivery- Primary documented in this encounter [facility]* Diagnosis examination following delivery ([facility])- Primary [facility] in this encounter [facility]* Diagnosis Screening for diabetes mellitus (DM)- Primary Screening for diabetes mellitus Encounter for care of first , third trimester ([facility]) documented in this encounter [facility] Summary Purpose Family History No Family History Records FoundNo Family History Records Found Advance Directives No Advanced Directives Records FoundNo Advanced Directives Records Found Additional Source Comments INFORMATION SOURCE (unrecogn ized section and content) DATE CREATED AUTHOR 07/19/2022 [facility] DATE CREATED AUTHOR AUTHOR'S ORGANIZ ATION 11/16/2024 [facility] Care Teams (unrecognized sec tion and content) Dental Billing Specialist Relationship Specialty Start Date End Date Unallocated, Tres Felipe MD [facility] [address] [place] [address] PCP - General Family Medicine 04/24/24 Dental Billing Specialist Relationship Specialty Start Date End Date Unallocated, Tres Felipe MD [facility] [place] [address] PCP - General Family Medicine 04/24/24 Dental Billing Specialist Relationship Specialty Start Date End Date Unallocated, Tres Felipe MD [facility] [address] [place] [address] PCP - General Family Medicine 04/24/24 Dental Billing Specialist Relationship Specialty Start Date End Date Unallocated, MD Jailyn [place] [address] PCP - General Family Medicine 04/24/24 Dental Billing Specialist Relationship Specialty Start Date End Date Unallocated, MD Nash Brown [facility] [facility] [place] [address] PCP - General Family Medicine 04/24/24 Dental Billing Specialist Relationship Specialty Start Date End Date Unallocated, Tres Felipe MD [address] [place] [address] PCP - General Family Medicine 04/24/24 Dental Billing Specialist Relationship Specialty Start Date End Date Unallocated, [place] [address] PCP - General Family Medicine 04/24/24 Dental Billing Specialist Relationship Specialty Start Date End Date Unallocated, Tres Felipe MD Jailyn [facility] [facility] [place] [address] PCP - General Family Medicine 04/24/24 Dental Billing Specialist Relationship Specialty Start Date End Date Unallocated, Tres Felipe MD Jailyn [facility] [place] [address] PCP - General Family Medicine 04/24/24 Dental Billing Specialist Relationship Specialty Start Date End Date Unallocated, Tres Felipe MD Jailyn [facility] [place] [address] PCP - General Family Medicine 04/24/24 Reason for Visit (unrecogniz ed section and content) Reason Comments Care FOR RECORDS PERTAINING TO PATIENTS WHO ARE [...] BE BASED ON THE PRIMARY CLINICAL RECORDS. [employer] [facility]. provides no warranty or guarantee of the accuracy or completeness of information in this document.
--- NOTE | 2024-12-16 12:25 | PC.NURSE ---
Loretta and 10 week old Anny arrive for support. Loretta states having trouble with supply, now baby fights latching. Relates has never pumped more than .5-1.5 oz combined. Loretta has friends who are sharing milk with her for infant's needs. She is aware of pro's and con's of informal milk sharing. is pumping every 2-3 hours with varying results, most days total output is 7 oz, highest amount obtained was 9 oz in 24 hours. is taking individual herbal supplements of fennel, brewers yeast, Moringa. Recently started taking Legendairy Gold support with goat's rue and has noticed slight decrease in output. Discussed Mother Love Herbals, More Milk Plus W/Moringa as possible supplement. Pt describes her pumping process and states never had a let down Obtains more milk in stimulation mode than on expression mode. Flange fit at 19mm and pt is using 19mm flanges. Denies medical history of diabetes, thyroid disease, PCOS, or others that may influence supply. Denies medications or control initiation. Infant mouth examined per LC. good tongue extension, well past gum ridge and past lips. Difficulty eliciting lateral tongue movements, and baby becomes fussy. Sucking includes tongue trusting which mom states is his new trick Baby scheduled already for exam per Dr Fernandez for evaluation of mouth and possible posterior tongue tie. Loretta able to pump 1.5 oz today, flange fits well, massage done and no evidence of let down, only sporadic drops of milk collected. Expression phase elicited no increase or reduction even of drops. Pump settings adjusted with no results. Mom frustrated with having no answer to problems . suggests hormone panel blood work to check prolactin level and thyroid levels. Mom in agreement as well. Will contact Dr Alcantara for blood work. Will return after baby has evaluation for tongue tie completed. Family home ambulatory.
== END 2024-12-16 12:44 | disposition home or self-care (01) ==
LOC: FBCO 08:14
PROVIDERS: Visit Provider Obstetrics & Gynecology
DX: Z39.1 Encounter for care and examination of lactating mother (principal)
CPT/HCPCS: G0463

== ENCOUNTER 2024-12-30 08:13 | Outpatient (OUT) | payer MEDICAID, SELFPAY ==
--- OUTSIDE RECORDS SUMMARY | 2024-12-30 08:23 | XMS_ITS | CCD ---
Author Organization [facility] Care Team Providers Care Highway Technician Name Role Phone REQUEST, DR PACO LISTED [...] DONG Admitting Unavailable PABLO DONG Attending Unavailable [place], DR JAMES Aquino Consulting Unavailable PABLO DONG Consulting Unavailable Unavailable Primary Care Provider Unavailjohanna e Unallocated , Noms Provider Primary Care Provi helena LUIS FERNANDO BETHEAERIE Adry Attending Unavailable FLORO, ROHIT L Referring [...] WITH AUTO DIFFon BASOPHILS ABSOLUTE AUTO 0 [facility] Basophils/100 WBC (Bld) 0.1 % Low 0.2 - 2.0 % [facility] Eosinophils/100 WBC (Bld) 0.1 % Low 0.9 - 7.0 % [facility] Erythrocyte distribution width (RBC) [Ratio] 13.9 % 11.0 - 15.0 % [facility] Hematocrit (Bld) [Volume fraction] 23.6 % Critically low 36.0 - 48.0 % [facility] Comment on above: RESULTS CALLED TO BRENDEN JUARES RN Hemoglobin (Bld) [Mass/Vol] 8 g/dL Low 12.0 - 16.0 g/dL [facility] IMMATURE GRANULOCYTES ABS AUTO 0.04 High [facility] Immature granulocytes/100 WBC (Bld) 0.3 % 0.0 - 0.5 % [facility] Interpretation and review of laboratory results Abnormal [facility] LYMPHOCYTES ABSOLUTE AUTO 3.1 [facility] Lymphocytes/100 WBC (Bld) 21.8 % 20.5 - 60.0 % [facility] MCH (RBC) [Entitic mass] 29.9 pg 26.7 - 34.0 pg [facility] MCHC (RBC) [Mass/Vol] 33.9 g/dL 29.9 - 35.2 g/dL [facility] MCV (RBC) [Entitic vol] 88.1 fL 81.0 - 99.0 fL [facility] MONOCYTES ABSOLUTE AUTO 1 High [facility] Monocytes/100 WBC (Bld) 7 % 1.7 - 12.0 % [facility] NEUTROPHILS ABSOLUTE AUTO 10.2 High [facility] Neutrophils/100 WBC (Bld) 70.7 % 43.0 - 75.0 % [facility] Platelet mean volume (Bld) [Entitic vol] 12.2 fL 9.5 - 13.5 fL [facility] TBH EO # 0 [facility]H PLT 205 [facility] TB RBC 2.68 Low [facility] WBC 14.4 High [facility] HMHP CBC WITH PLATELET NO DI FFERENTIALon 10-06-2024 Erythrocyte distribution width (RBC) [Ratio] 13.4 % 11.0 - 15.0 % [facility] Hematocrit (Bld) [Volume fraction] 33 % Low 36.0 - 48.0 % [facility] Hemoglobin (Bld) [Mass/Vol] 11.3 g/dL Low 12.0 - 16.0 g/dL [facility] Interpretation and review of laboratory results Abnormal [facility] MCH (RBC) [Entitic mass] 29.1 pg 26.7 - 34.0 pg [facility] MCHC (RBC) [Mass/Vol] 34.2 g/dL 29.9 - 35.2 g/dL [facility] MCV (RBC) [Entitic vol] 85.1 fL 81.0 - 99.0 fL [facility] Platelet mean volume (Bld) [Entitic vol] 13.1 fL 9.5 - 13.5 fL [facility] TB PLT 293 [facility] TB RBC 3.88 Low [facility] TBH WBC 19.8 High [facility] US OB FOLLOW UP TRANSABDOMIN AL APPROACHon [...] signed and approved by the interpreting radiologist. [facility] for pregnancyOrdered By: Lee Yost on 03-25-2024 [facility] [employer] Work Phone: OB LIMITED 1+ FETUSESon 1 [...] US for pregnancyon Radiology Study observation (narrative) [facility] US OB < 14 WEEKS EARLYon US [...] 30 to 65on 07-19-2022 . . Normal [facility] Comment on above: Result Comment: Perf ormed at: WB Performed By: #### [id number] #### [facility] [address] [place] [address] Dr. Elise Arboleda Age Gdln ACOG Testing 30-65 Normal [facility] Comment on above: Performed By: #### [id number] #### [facility] [address] [address] [address] Elise Arboleda DIAGNOSIS: Comment Normal [facility] Comment on above: Result Comment: NEGA TIVE FOR INTRAEPITHELIAL LESION OR MALIGNANCY. Performed at: WB Performed By: #### [id number] #### [facility] [address] [address] [address] Elise Arboleda HPV Aptima Negative Normal Negative [facility] Comment on above: Result Comment: This nucleic acid amplification test detects fourteen high-risk HPV types (16,18,31,33,35,39,45,51,52,56,58,59,66,68) without differentiation. Performed at: =G Performed By: #### [id number] #### [facility] [address] [address] [address] Elise Arboleda HPV Genotype Reflex Comment Normal [facility] Comment on above: Result Comment: Crit eria not met, HPV Genotype not performed. Performed at: WB Performed By: #### [id number] #### [facility] [address] [place] [address] Dr. Elise Arboleda Methodology: Comment Normal [facility] Comment on above: Result Comment: This liquid based ThinPrep(R) pap test was screened with the use of an image guided system. Performed at: WB Performed By: #### [id number] #### [facility] [address] [place] [address] Dr. Elise Arboleda Note: Comment Normal [facility] Comment on above: Result Comment: The Pap smear is a screening test designed to aid in the detection of premalignant and malignant conditions of the uterine cervix. It is not a diagnostic procedure and should not be used as the sole means of detecting cervical cancer. Both false-positive and false-negative reports do occur. . Performed at: WB Performed By: #### [id number] #### [facility] [address] [place] [address] Dr. Elise Arboleda Performed by: Comment Normal [facility] Comment on above: Result Comment: Louis De Los Santos, Hospital Intern (ASCP) Performed at: WB Performed By: #### [id number] #### [facility] [address] [place] [address] Dr. Elise Arboleda Specimen adequacy: Comment Normal [facility] Comment on above: Result Comment: Sati sfactory for evaluation. Endocervical and/or squamous metaplastic cells (endocervical component) are present. Performed at: WB Performed By: #### [id number] #### [facility] [address] [place] [address] HEAD WO CONon [...] JAMES BHANDARI Date: 2022-05-15 13:15 Normal [facility] ARNALDO - QUALITATIVEo n 05-10-2022 , QUAL Negative Normal NEGATIVE [facility] Comment on above: Performed By: #### D ATPREG #### [facility] [address] [place] [address] Dr. Elise Arboleda CBC AUTO DIFFon 03-27-2022 BASO # 0.0 103/ul Normal 0.0-0.1 [facility] Comment on above: Performed By: #### C BC #### [facility] [address] [place] [address] Dr. Elise Arboleda Basophils/100 WBC (Bld) 0.6 % Normal 0.2-2.0 [facility] Comment on above: Performed By: #### C BC #### [facility] [address] [place] [address] Dr. Elise Arboleda EO # 0.1 103/ul Normal 0.0-0.7 [facility] Comment on above: Performed By: #### C BC #### [facility] [address] [place] [address] Dr. Elise Arboleda Eosinophils/100 WBC (Bld) 1.6 % Normal 0.9-7.0 [facility] Comment on above: Performed By: #### C BC #### [facility] [address] [place] [address] Dr. Elise Arboleda Erythrocyte distribution width (RBC) [Ratio] 12.3 % Normal 11.0-15.0 [facility] Comment on above: Performed By: #### C BC #### [facility] [address] [place] [address] Dr. Elise Arboleda Hematocrit (Bld) [Volume fraction] 38.4 % Normal 36.0-48.0 [facility] Comment on above: Performed By: #### C BC #### [facility] [address] [address] [address] Elise Arboleda Hemoglobin (Bld) [Mass/Vol] 12.9 g/dL Normal 12.0-16.0 [facility] Comment on above: Performed By: #### C BC #### [facility] [address] [address] [address] Elise Arboleda IG # 0.01 10e3/ul Normal 0.00-0.03 [facility] Comment on above: Performed By: #### C BC #### [facility] [address] [place] [address] Dr. Elise Arboleda IG % 0.1 % Normal 0.0-0.5 [facility] Comment on above: Performed By: #### C BC #### [facility] [address] [place] [address] Dr. Elise Arboleda LYMPH # 3.5 103/ul Normal 1.2-3.8 [facility] Comment on above: Performed By: #### C BC #### [facility] [address] [place] [address] Dr. Elise Arboleda Lymphocytes/100 WBC (Bld) 49.4 % Normal 20.5-60.0 [facility] Comment on above: Performed By: #### C BC #### [facility] [address] [place] [address] Dr. Elise Arboleda MANUAL DIFF REQ NO Normal [facility] Comment on above: Performed By: #### C BC #### [facility] [address] [place] [address] Dr. Elise Arboleda MCH (RBC) [Entitic mass] 30.6 pg Normal 26.7-34.0 [facility] Comment on above: Performed By: #### C BC #### [facility] [address] [place] [address] Dr. Elise Arboleda MCHC (RBC) [Mass/Vol] 33.6 g/dL Normal 29.9-35.2 [facility] Comment on above: Performed By: #### C BC #### [facility] [address] [address] [address] Elise Arboleda MCV (RBC) [Entitic vol] 91.2 fL Normal 81.0-99.0 [facility] Comment on above: Performed By: #### C BC #### [facility] [address] [address] [address] Elise Arboleda MONO # 0.5 103/ul Normal 0.3-0.8 [facility] Comment on above: Performed By: #### C BC #### [facility] [address] [address] [address] Elise Arboleda Monocytes/100 WBC (Bld) 6.6 % Normal 1.7-12.0 [facility] Comment on above: Performed By: #### C BC #### [facility] [address] [place] [address] Dr. Elise Arboleda NEUT # 2.9 103/ul Normal 1.4-6.5 [facility] Comment on above: Performed By: #### C BC #### [facility] [address] [place] [address] Dr. Elise Arboleda Neutrophils/100 WBC (Bld) 41.7 % Critically low 43.0-75.0 [facility] Comment on above: Performed By: #### C BC #### [facility] [address] [place] [address] Dr. Elise Arboleda Platelet mean volume (Bld) [Entitic vol] 11.8 fL Normal 9.5-13.5 [facility] Comment on above: Performed By: #### C BC #### [facility] [address] [place] [address] Dr. Elise Arboleda PLT 258 103/ul Normal 150-450 [facility] Comment on above: Performed By: #### C BC #### [facility] [address] [place] [address] Dr. Elise Arboleda RBC 4.21 106/ul Normal 4.20-5.40 [facility] Comment on above: Performed By: #### C BC #### [facility] [address] [place] [address] Dr. Elise Arboleda WBC 7.0 103/ul Normal 4.0-11.0 [facility] Comment on above: Performed By: #### C BC #### [facility] [address] [place] [address] Dr. Elise Arboleda FREE T4on 03-27-2022 Free T4 [Mass/Vol] 1.06 ng/dL Normal 0.76-1.46 [facility] Comment on above: Performed By: #### F T4 #### [facility] [address] [place] [address] Dr. Elise Arboleda GLYCOHEMOGLOBIN A1Con 2021 ADA RECOMMENDATION SEE BELOW Normal [facility] Comment on above: Result Comment: ADA RECOMMENDED LIMIT 4.0 - 6.0 ADA THERAPEUTIC TARGET < 7.0 ACTION SUGGESTED > 7.0 Performed By: #### A 1C #### [facility] [address] [place] [address] Dr. Elise Arboleda Glucose [Mass/Vol] 105 mg/dL Normal [facility] Comment on above: Performed By: #### A 1C #### [facility] [address] [place] [address] Dr. Elise Arboleda HbA1c (Bld) [Mass fraction] 5.3 % Normal 4.5-6.2 [facility] Comment on above: Performed By: #### A 1C #### [facility] [address] [place] [address] Dr. Elise Arboleda TSHon 03-27-2022 TSH 0.837 uIU/mL Normal 0.358-3.740 [facility] Comment on above: Performed By: #### T SH #### [facility] [address] [place] [address] Dr. Elise Arboleda Vital Signs Date Time Vital Sign Value Performing Clinician Jane dunn 11-10-2024 17:13-0400 Body mass index (BMI) [Ratio] 25.13 kg/m2 Rohit CARMONA Work Phone: [facility] 11-10-2024 17:13-0400 Body weight 68.49 kg Rohit Floro CNM Work Phone: [facility] 11-10-2024 17:13-0400 Diastolic blood pressure 74 mm[Hg] Rohit Floro CNM Work Phone: [facility] 11-10-2024 17:13-0400 Systolic blood pressure 120 mm[Hg] Rohit Floro CNM Work Phone: [facility] 10-14-2024 13:42-0400 Body mass index (BMI) [Ratio] 25.13 kg/m2 Rohit Floro CNM Work Phone: [facility] 10-14-2024 13:42-0400 Body weight 68.49 kg Rohit Floro CNM Work Phone: [facility] 10-14-2024 13:42-0400 Diastolic blood pressure 80 mm[Hg] Rohit Floro CNM Work Phone: [facility] 10-14-2024 13:42-0400 Systolic blood pressure 122 mm[Hg] Rohit Floro CNM Work Phone: [facility] 09-22-2024 16:07-0400 Body mass index (BMI) [Ratio] 28.12 kg/m2 Rohit Floro CNM Work Phone: [facility] 09-22-2024 16:07-0400 Body weight 76.66 kg Rohit Floro CNM Work Phone: [facility] 09-22-2024 16:07-0400 Diastolic blood pressure 70 mm[Hg] Rohit Floro CNM Work Phone: [facility] 09-22-2024 16:07-0400 Systolic blood pressure 110 mm[Hg] Rohit Floro CNM Work Phone: [facility] 09-08-2024 17:31-0400 Body mass index (BMI) [Ratio] 28.62 kg/m2 Rohit Floro CNM Work Phone: [facility] 09-08-2024 17:31-0400 Body weight 78.02 kg Rohit Floro CNM Work Phone: [facility] 09-08-2024 17:31-0400 Diastolic blood pressure 80 mm[Hg] Rohit Floro CNM Work Phone: [facility] 09-08-2024 17:31-0400 Systolic blood pressure 122 mm[Hg] Rohit Floro CNM Work Phone: [facility] 08-20-2024 16:36-0400 Body mass index (BMI) [Ratio] 27.79 kg/m2 Rohit Floro CNM Work Phone: [facility] 08-20-2024 16:36-0400 Body weight 75.75 kg Rohit Floro CNM Work Phone: [facility] 08-20-2024 16:36-0400 Diastolic blood pressure 60 mm[Hg] Rohit Floro CNM Work Phone: [facility] 08-20-2024 16:36-0400 Systolic blood pressure 110 mm[Hg] Rohit Floro CNM Work Phone: [facility] 05-22-2024 09:21-0500 Body mass index (BMI) [Ratio] 27.12 kg/m2 Rohit Floro CNM Work Phone: [facility] 05-22-2024 09:21-0500 Body weight 73.94 kg Rohit Floro CNM Work Phone: [facility] 05-22-2024 09:21-0500 Diastolic blood pressure 78 mm[Hg] Rohit Floro CNM Work Phone: [facility] 05-22-2024 09:21-0500 Systolic blood pressure 118 mm[Hg] Rohit Floro CNM Work Phone: [facility] 04-24-2024 09:43-0500 Body mass index (BMI) [Ratio] 26.96 kg/m2 Rohit Floro CNM Work Phone: [facility] 04-24-2024 09:43-0500 Body weight 73.48 kg Rohit Blancoo CNM Work Phone: [facility] 04-24-2024 09:43-0500 Diastolic blood pressure 80 mm[Hg] Rohit Bellao CNM Work Phone: [facility] 04-24-2024 09:43-0500 Systolic blood pressure 120 mm[Hg] Rohit Bellao CNM Work Phone: [facility] 03-20-2024 15:41-0500 Body mass index (BMI) [Ratio] 27.12 kg/m2 Rohit Bellao CNM Work Phone: [facility] 03-20-2024 15:41-0500 Body weight 73.94 kg Rohit Floro CNM Work Phone: [facility] Encounters Encounter Date Encounter Type Care Provider Facility Start: 11-10-2024 End: 11-10-2024 ambulatory ROHIT L FLORO Not Available Start: 11-10-2024 End: 11-10-2024 Office outpatient visit 15 minutes Rohit L Floro CNM Work Phone: [facility] Comment on above: examinati on following delivery ([facility] (Primary Dx) Start: 10-14-2024 End: 10-14-2024 ambulatory [...] for care of first , third trimester ([facility]) Start: 08-20-2024 End: 08-20-2024 Bamboo flowsheet Rohit [...] al care of first , second trimester ([facility]) (Primary Dx); Nausea/vomiting in ([facility]) Start: 05-22-2024 End: 05-22-2024 ambulatory ROHIT L [...] [facility] [address] [place] [id number] Rohit Bethea CNM [address] [place] [address] [facility] Start: 2024 End: 2024 Patient encounter procedure 2024 9:30 AM EDT Routine [facility] [address] [place] [id number] Rohit Bethea CNM [address] [place] [address] [facility] Start: 09-29-2024 End: 09-29-2024 Patient encounter procedure 09/29/2024 4:30 PM EDT Routine [facility] [address] [place] [id number] Rohit Bethea, KRISTINEM [address] [place] [address] [facility] Start: 09-22-2024 End: 09-22-2024 Patient encounter procedure 09/22/2024 4:00 PM EDT Routine [facility] [address] [place] [id number] Rohit Bethea, [facility] [address] [place] [address] [facility] Start: 09-15-2024 End: 09-15-2024 Patient encounter procedure 09/15/2024 5:15 PM EDT Routine [facility] [address] [place] [id number] Neema Rohit L, [facility] [address] [place] [address] [facility] Start: 09-08-2024 End: 09-08-2025 [...] [facility] [address] [place] [id number] Rohit Bethea, CNM [address] [place] [address] [facility] Start: 03-24-2024 End: 03-24-2025 ABO/Rh ABO/Rh Lab Routine Encounter for supervision of normal first , first trimester Expected: 03/24/2024 (Approximate), Expires: 03/24/2025 [facility] Comment on above: Expected: 03/24/2024 (Approximate), Expires: 03/24/2025 Start: 03-24-2024 End: 03-24-2025 Antibody screen Antibody screen Lab Routine Encounter for supervision of normal first , first trimester Expected: 03/24/2024 (Approximate), Expires: 03/24/2025 [facility] Comment on above: Expected: 03/24/2024 [...] first trimester Expected: 03/24/2024 (Approximate), Expires: 03/24/2025 [facility] Comment on above: Expected: 03/24/2024 (Approximate), Expires: 03/24/2025 Start: 03-24-2024 End: 03-24-2025 Hemoglobin A1c/Hemoglobin.total in Blood Hemoglobin A1c Lab Routine Encounter for supervision of normal first , first trimester Expected: 03/24/2024 (Approximate), Expires: 03/24/2025 [facility] Comment on above: Expected: 03/24/2024 (Approximate), Expires: 03/24/2025 Start: 03-24-2024 End: 03-24-2025 Hepatitis B virus surface Ag [Presence] in Serum or Plasma by Immunoassay Hepatitis B surface antigen Lab Routine Encounter for supervision of normal first , first trimester Expected: 03/24/2024 (Approximate), Expires: 03/24/2025 [facility] Work Phone: Comment on above: Expected: 03/24/2024 (Approximate), Expires: 03/24/2025 Start: 03-24-2024 End: 03-24-2025 Hepatitis C virus Ab [Presence] in Serum or Plasma by Immunoassay Hepatitis C antibody Lab Routine Encounter for supervision of normal first , first trimester Expected: 03/24/2024 (Approximate), Expires: 03/24/2025 [facility] Comment on above: Expected: 03/24/2024 (Approximate), Expires: 03/24/2025 Start: 03-24-2024 End: 03-24-2025 HIV-1/HIV-2 antigen/antibody combination immunoassay HIV-1 and HIV-2 antibodies Lab Routine Encounter for supervision of normal first , first trimester Expected: 03/24/2024 (Approximate), Expires: 03/24/2025 [facility] Comment on above: Expected: 03/24/2024 (Approximate), Expires: 03/24/2025 Start: 03-24-2024 End: 03-24-2025 Neisseria gonorrhoeae DNA [Presence] in Cervical mucus by STANLEY with probe detection C. trachomatis / N. gonorrhoeae, DNA probe Pathology and Cytology Routine Encounter for supervision of normal first , first trimester Expected: 03/24/2024 (Approximate), Expires: 03/24/2025 [facility] Comment on above: Expected: 03/24/2024 (Approximate), Expires: 03/24/2025 Start: 03-24-2024 End: 03-24-2025 Reagin Ab [Presence] in Serum by RPR RPR Lab Routine Encounter for supervision of normal first , first trimester Expected: 03/24/2024 (Approximate), Expires: 03/24/2025 [facility] Comment on above: Expected: 03/24/2024 (Approximate), Expires: 03/24/2025 Start: 03-24-2024 End: 03-24-2025 Rubella antibody, IgG Rubella antibody, IgG Lab Routine Encounter for supervision of normal first , first trimester Expected: 03/24/2024 (Approximate), Expires: 03/24/2025 [facility] Comment on above: Expected: 03/24/2024 (Approximate), Expires: 03/24/2025 Start: 03-24-2024 End: 03-24-2025 TSH W/REFLEX TO FT4 TSH W/REFLEX TO FT4 Lab Routine Encounter for supervision of normal first , first trimester Expected: 03/24/2024 (Approximate), Expires: 03/24/2025 [facility] Comment on above: Expected: 03/24/2024 (Approximate), Expires: 03/24/2025 Start: 03-24-2024 End: 03-24-2025 URINALYSIS MICROSCOPIC URINALYSIS MICROSCOPIC Lab Routine Encounter for supervision of normal first , first trimester Expected: 03/24/2024 (Approximate), Expires: 03/24/2025 [facility] Comment on above: Expected: 03/24/2024 (Approximate), Expires: 03/24/2025 Start: 03-20-2024 End: 03-20-2024 Professional / ancillary services management 03/20/2024 4:15 PM EST Ancillary Procedure [facility] [address] [place] [address] [facility] Start: 01-13-2024 Influenza vaccination Influenza Vacc ine (#1) [facility] Start: 07-16-2023 End: 07-16-2023 Patient encounter procedure 07/16/2023 10:00 AM EST Procedure Visit [facility] [address] [place] [address] Bertha Alcantara, DO [address] [place] [address] [phone] (work) [facility] Start: 10-06-2021 Screening for malign ant neoplasm of cervix [facility] Start: 10-06-2012 Screening for malign ant neoplasm of cervix Pap Smear [facility] Payers Date Payer Category Payer Medicaid [id number] 2024 Medicaid [id number] 1990 Unknown [id number] 2.16.84 [id number] 1991 Unknown [id number] 2.16.84 [id number] 1991 Unknown [id number] 2.16.84 [id number] 1991 Unknown [id number] 2.16.8 [id number] 1991 Unknown [id number] 2.16.8 [id number] 1991 Unknown [id number] 2.16.84 [id number] 1990 Unknown [id number] 2.16.84 [id number] 1990 Unknown [id number] 2.16.84 [id number] 1990 Unknown [id number] 2.16.84 [id number] 1990 Unknown [id number] 2.16.84 [id number] 1990 Unknown [id number] 2.16.84 [id number] 1990 Unknown [id number] 2.16.84 [id number] 1958 Self-pay 1958 Unknown [id number] 1958 Unknown [id number] Unknown [id number] 2.16.84 [id number] Social History Date Type Detail Facility Tobacco smoking stat [facility] Tobacco smoking consumption unknown [facility] Start: 1990 Sex Assigned At Not on file [facility] Start: 03-20-2024 End: 11-10-2024 Gender identity Not on file [facility] Start: 03-20-2024 Tobacco smoking stat [facility] Never smoked tobacco [facility] Start: 03-20-2024 Tobacco use and exposure Smokeless t obacco non-user [facility] Start: 03-20-2024 End: 11-10-2024 Alcoholic beverage intake Ex-drinker (finding) [facility] Start: 03-20-2024 End: 11-10-2024 History of Social function [facility] Start: 01-13-2024 [facility] The thought of arleen lim myself has occurred to me Never [facility] Medical Equipment Procedure Code Equipment Code Equipment Origin al Text Equipment Identifier Dates 1 each by In Vit ro route in the morning and 1 each at noon and 1 each in the evening and 1 each before bedtime. Take with meals. Please fill whatever insurance will cover with lancets and test strips. [id number] Start: 08-27-2024 End: 11-10-2024 Clinical Notes 03-20-2024 [...] weeks. normal exam documented in this encounter [facility] 10-14-2024 History of Presen t illness Narrative [...] encounter. normal exam documented in this encounter [facility] 09-22-2024 History of Presen t illness Narrative [...] a routine visit. documented in this encounter [facility] 09-08-2024 History of Presen t illness Narrative [...] a routine visit. documented in this encounter [facility] 08-20-2024 History of Presen t illness Narrative [...] for care of first , third trimester ([facility]) Continue vitamin. Labs reviewed. GBS taken. Expected mode of delivery Follow up in 1 week for a routine visit. documented in this encounter [facility] 05-22-2024 History of Presen t illness Narrative [...] for care of first , second trimester ([facility]) Nausea/vomiting in ([facility]) Continue vitamin. Labs reviewed. Rhogam GTT . Follow up in 4 weeks for a routine visit. documented in this encounter [facility] 04-24-2024 History of Presen t illness Narrative [...] a routine visit. documented in this encounter [facility] 04-22-2024 Telephone encounter Note Form atting of this note might be different from the original. Pt has a [facility] appt at 9:30 and wanted to know if you could give her a proof of letter. She misplaced the one that [facility] gave her. But she is going to also call them to see if they kept a copy. [facility] 04-22-2024 Miscellaneous Notes Formattin g of this note might be different from the original. Pt has a [facility] appt at 9:30 and wanted to know if you could give her a proof of letter. She misplaced the one that [facility] gave her. But she is going to also call them to see if they kept a copy. documented in this encounter [facility] 04-02-2024 Telephone encounter Note Form atting of [...] She found the bleeding when she wiped. [phone] [facility] 04-02-2024 Miscellaneous Notes Formattin g of this [...] She found the bleeding when she wiped. [phone] documented in this encounter [facility] 03-24-2024 Note Addended by: LINDA QUINONES on: 03/24/2024 11:54 AM Modules accepted: Orders [facility] 03-24-2024 Miscellaneous Notes Addended by: LINDA REYES [...] pt. Thank you. documented in this encounter [facility] 03-24-2024 Note Addended by: LINDA QUINONES on: 03/24/2024 11:51 AM Modules accepted: Orders [facility] 03-24-2024 Telephone encounter Note Form atting of this note might be different from the original. Labs ordered [facility] 03-24-2024 Telephone encounter Note Form atting [...] still nauseated. Please advise pt. Thank you. [facility] 03-20-2024 History of Presen t illness Narrative Subjective Loretta Tesfaye is a 33 y.o. at 11w4d with a working estimated date of delivery of 10/05/2024, by Last Menstrual Period who presents for an initial visit. This is planned. No care staff nurse icu resource team to display OB History Para Term AB Living 1 SAB IAB Ectopic Multiple Live Births # Outcome Date GA Lbr Rocael/2nd Weight Sex Type Anes PTL Lv 1 Current Her is complicated by: nausea and vomiting Patient referred by [facility] Gynecology History Last Pap 07/11/22 The [...] also given office phone number and [facility] number to call in case of an emergency or after hours needs. PVU and all questions answered. We did discuss place of delivery. Patient should plan to go to [facility] for all services unless an emergency and they need to go to the closest ER. We can make other arrangements possibly if patient would like to deliver at another facility but I did explain I am now at [facility] 100% of the time and would like [...] for care of first , second trimester ([facility])- Primary Nausea/vomiting in ([facility]) Unspecified vomiting of , unspecified as to [...] DATE CREATED AUTHOR AUTHOR'S ORGANIZ ATION 11/16/2024 [facility] Care Teams (unrecognized sec tion and content) Highway Technician Relationship Specialty Start Date End Date Unallocated, Tres Felipe MD [facility] [address] [place] [address] PCP - General Family Medicine 04/24/24 Highway Technician Relationship Specialty Start Date End Date Unallocated, Tres Felipe MD [facility] [place] [address] PCP - General Family Medicine 04/24/24 Highway Technician Relationship Specialty Start Date End Date Unallocated, Tres Felipe MD [facility] [address] [place] [address] PCP - General Family Medicine 04/24/24 Highway Technician Relationship Specialty Start Date End Date Unallocated, MD Jailyn Brown [place] [address] PCP - General Family Medicine 04/24/24 Highway Technician Relationship Specialty Start Date End Date Unallocated, MD Nash Brown [address] [place] [address] PCP - General Family Medicine 04/24/24 Highway Technician Relationship Specialty Start Date End Date Unallocated, Tres Felipe MD [address] [place] [address] PCP - General Family Medicine 04/24/24 Highway Technician Relationship Specialty Start Date End Date Unallocated, [place] [address] PCP - General Family Medicine 04/24/24 Highway Technician Relationship Specialty Start Date End Date Unallocated, Tres Felipe MD Jailyn [address] [place] [address] PCP - General Family Medicine 04/24/24 Highway Technician Relationship Specialty Start Date End Date Unallocated, Tres Felipe MD Jailyn [address] [place] [address] PCP - General Family Medicine 04/24/24 Highway Technician Relationship Specialty Start Date End Date Unallocated, Tres Felipe MD Jailyn [address] [place] [address] PCP - General Family Medicine 04/24/24 Reason [...] BE BASED ON THE PRIMARY CLINICAL RECORDS. [facility]. provides no warranty or guarantee of the accuracy or completeness of information in this document.
--- NOTE | 2024-12-30 17:10 | PC.NURSE ---
LorettaRubénWade and krishna arrive for support. Baby is 10-11 weeks old, Had revision of tongue and lip tie 12/26/[address] Fernandez. Mom notes some changes with latching and baby remaining latched at breast longer interval, congestion with feeding has stopped as well. Mom was able to rent a Symphony Medela pump from [employer]. States notices her milk supply is up by 1/2 oz each side. Has only had the pump since Sunday12/26/2024. Baby is gaining well, alert, active and social. Engages with LC during exam of mouth. Healing area upper lip tie noted and area under tongue healing well. Infant noted to have strong suction during Tug of war, lateralization of tongue left and right well. Shown suck exercises to mom for further care at home. No further concerns voiced at this time. Family home without concerns.
== END 2024-12-30 17:24 | disposition home or self-care (01) ==
PROVIDERS: Visit Provider Obstetrics & Gynecology
DX: Z39.1 Encounter for care and examination of lactating mother (principal)

== ENCOUNTER 2025-01-05 16:40 | Outpatient (OUT) | payer MEDICAID, SELFPAY ==
--- OUTSIDE RECORDS SUMMARY | 2025-01-05 15:20 | XMS_ITS | Encounter Summary ---
Author Organization [facility] Address [address] [place] [address] Care Team Providers Care Golf Ball Trimmer Name Role Phone Unallocated, Noms Provider Primary Care Provi helena Reason for Visit * Reason Comments Follow-up Encounter Details Date Type Department Care Team (Late st Contact Info) Description 01/05/2025 3:20 PM EDT Office Visit [facility] [address] [facility] [place] [id number] Eliud Alcantara DO [address] [place] Avilez, [place] [id number] PCOS (polycystic ovarian syndrome) (Primary Dx); Lactating, suppressed ([facility]) Social History Tobacco Use Types Packs/Day Years Used Date Smoking Tobacco: Never Smokeless Tobacco: Never Alcohol Use Standard Drinks/Week Comments Not Currently 0 (1 standard drink = 0.6 oz pur e alcohol) Louise Depression Scale Answer Date Recorded [place] Depression Scale Total 8 11/10/2024 The thought of harming myself has occurred to me . Never 11/10/2024 Comments No Sex and Gender Information Value Date Recorded Sex Assigned at Not on file Legal Sex Female 11:47 PM EDT Gender Identity Not on file Sexual Orientation Not on file documented as of this encounter Last Filed Vital Signs Vital Sign Reading Time Taken Comments Blood Pressure 130/82 01/05/2025 4:13 PM EDT Pulse - - Temperature - - Respiratory Rate - - Oxygen Saturation - - Inhaled Oxygen Concentration - - Weight 71.7 kg (158 lb) 01/05/2025 4:13 PM EDT Height - - Body Mass Index 26.29 07/11/2022 12:00 PM EST documented in this encounter Plan of Treatment Scheduled Orders Name Type Priority Associated Diagnoses Orde r Schedule hCG, quantitative, Lab Routine PCOS (polycystic ovarian syndrome) Ordered: 01/05/2025 TSH Lab Routine PCOS (polycystic ovarian syndrome) Ordered: 01/05/2025 T4, free Lab Routine PCOS (polycystic ovarian syndrome) Ordered: 01/05/2025 CBC and differential Lab Routine PCOS (polycystic ovarian syndrome) Ordered: 01/05/2025 Follicle stimulating hormone Lab Routine PCOS (polycystic ovarian syndrome) Ordered: 01/05/2025 Luteinizing hormone Lab Routine PCOS (polycystic ovarian syndrome) Ordered: 01/05/2025 Hemoglobin A1c Lab Routine Lactating, suppressed ([facility]) Ordered: 01/05/2025 DHEA-sulfate Lab Routine PCOS (polycystic ovarian syndrome) Ordered: 01/05/2025 DHEA Lab Routine PCOS (polycystic ovarian syndrome) Expected: 01/05/2025 (Approximate), Expires: 01/05/2026 Vitamin B12 Lab Routine Lactating, suppressed ([facility]) Expected: 01/05/2025 (Approximate), Expires: 01/05/2026 Vitamin D 1,25 dihydroxy Lab Routine Lactating, suppressed ([facility]) Ordered: 01/05/2025 documented as of this encounter Procedures Procedure Name Priority Date/Time Associated Diagnosis Comments PAP SMEAR Routine 07/11/2022 12:00 AM EST documented in this encounter Results * Pap Smear (07/11/2022 12:00 AM EST) Swab Cervical swab / Unknown us Eliud Quinton DO LAB CYTOLOGY ORDERABLES Final Re sult EXTERNAL LAB documented in this encounter Visit Diagnoses Diagnosis PCOS (polycystic ovarian syndrome)- Primary Polycystic ovaries Lactating, suppressed ([facility]) Suppressed , unspecified as to episode of care documented in this encounter Care Teams Golf Ball Trimmer Relationship Specialty Start Date End Date Unallocated, Noms Provider, [place] [address] PCP - General Family Medicine 04/24/24 documented as of this encounter
--- OUTSIDE RECORDS SUMMARY | 2025-01-05 16:43 | XMS_ITS | Encounter Summary ---
Author Organization [facility] Address [address] [place] [address] Care Team Providers Care Activity Coordinator Name Role Phone Unallocated, Noms Provider Primary Care Provi helena Encounter Details Date Type Department Care Team (Late st Contact Info) Description 01/05/2025 Bamboo flowsheet JESSE Avilez OBGYN [address] [place] [address] Eliud Alcantara DO [address] [place], [place] [address] Social History Tobacco Use Types Packs/Day Years Used Date Smoking Tobacco: Never Smokeless Tobacco: Never Alcohol Use Standard Drinks/Week Comments Not Currently 0 (1 standard drink = 0.6 oz pur e alcohol) [place] Depression Scale Answer Date Recorded [place] Depression Scale Total 8 11/10/2024 The thought of harming myself has occurred to me . Never 11/10/2024 Comments No Sex and Gender Information Value Date Recorded Sex Assigned at Not on file Legal Sex Female 11:47 PM EDT Gender Identity Not on file Sexual Orientation Not on file documented as of this encounter Plan of Treatment Not on file documented as of this encounter Visit Diagnoses Not on filedocumented in this encounter Care Teams Activity Coordinator Relationship Specialty Start Date End Date Unallocated, Noms Provider, [address] [place] [address] PCP - General Family Medicine 04/24/24 documented as of this encounter
--- OUTSIDE RECORDS SUMMARY | 2025-01-05 16:44 | XMS_ITS | Encounter Summary ---
Author Organization [facility] Address [address] [place] [address] Care Team Providers Care Pantograph I Engraver Name Role Phone Unallocated, Noms Provider Primary Care Provi helena Encounter Details Date Type Department Care Team (Late st Contact Info) Description 04/02/2024 Clinisync Result Encounter [facility] External Department Unsolicited Rohit Bethea, CNM [address] [place], [place] [id number] Social History Tobacco Use Types Packs/Day Years [...] on file documented as of this encounter Procedures Procedure Name Priority Date/Time Associated Diagnosis Comments US OB L= 14 WEEKS FETUS 04/02/2024 2:43 PM EST documented in this encounter Results * US OB L= 14 WEEKS FETUS (04/02/2024 2:43 PM EST) Anatomical Region Laterality Modality Other 04/02/2024 2:43 PM EST Narrative 04/02/2024 2:45 PM EST The [address] [address] Ultrasound Report Signed Patient: EVAN TESFAYE MR#: [id number] : 1990 Acct:[id number] Age/Sex: 33 / F ADM Date: 04/02/24 Loc: US Attending Dr: ROHIT BETHEA APRN, CNM Ordering Physician: ROHIT BETHEA APRN, CNM Date of Service: 04/02/24 Procedure(s): US OB <= 14 weeks fetus Accession Number(s): [id number] cc: ROHIT BETHEA APRN, CNM; Physician,Non-Staff MClair The [address] [address] Patient Name: EVAN TESFAYE MRN: [id number]:[id number] date: 1990 Sex: F Assigned Patient Location: US Current Patient Location: US Accession/Order Number: [id number] Exam Date: 04/02/2024 13:27 Report Date: 04/02/2024 [...] Bhandari M.D. Signed By: 04/02/24 1445 DD/ 144 TD/TT: Manager Cargo: Procedure Note Radiology, Radiologist, MD - 04/02/2024 [place] [address] Ultrasound Report Signed Patient: EVAN TESFAYE MMR#: [id number] : 1990Acct:[id number] Age/Sex: 33 / FADM Date: 04/02/24 Loc: US Attending Dr: ROHIT BETHEA APRN, CNM Ordering Physician: ROHIT BETHEA APRN, CNM Date of Service: 04/02/24 Procedure(s): US OB <= 14 weeks fetus Accession Number(s): [id number] cc: ROHIT BETHEA APRN, CNM; Physician,Non-Staff Mary Jo The [place] [address] Patient Name: EVAN TESFAYE MRN: [id number]:[id number] date: 1990 Sex: F Assigned Patient Location: US Current Patient Location: US Accession/Order Number: [id number] Exam Date: 04/02/2024 13:27 Report Date: 04/02/2024 [...] Bhandari M.D. Signed By:04/02/241444 DD/ 42 TD/TT: Manager Cargo: Rohit Bethea CNM [facility] Final Resu lt documented in this encounter Visit Diagnoses Not on filedocumented in this encounter Care Teams Pantograph I Engraver Relationship Specialty Start Date End Date Unallocated, Noms Provider, MD [address] [place], [place] [id number] PCP - General Family Medicine 04/24/24 documented as of this encounter
--- OUTSIDE RECORDS SUMMARY | 2025-01-05 16:44 | XMS_ITS | Clinical Summary ---
Author Organization [facility] Address [address] [place] [address] Care Team Providers Care Methods Specialist Name Role Phone Unallocated, Noms Provider Primary Care Provi helena Allergies No known active allergies Medications MV-Min-Fe Fum-FA-DHA ( 1 PO) Take by mouth Active ibuprofen 400 MG tablet Take 400 mg by mouth every 8 (eight) hours if needed for moderate pain 10/08/2024 Active Encounters Date Type Department Care Team Description 01/05/2025 3:20 PM EDT Office Visit JESSE WREN [address] [place] [address] [place] [address] Eliud Alcantara, PCOS (polycystic ovarian syndrome) (Primary Dx); Lactating, suppressed ([facility]) 01/05/2025 Bamboo flowsheet NOMIsiah WREN [address] [place] [address] [place] [address] Eliud Alcantara DO 11/10/2024 5:00 PM EDT Visit N[facility] [place] [address] Kelin Bethea CNM examination following delivery ([facility]) (Primary Dx) 10/14/2024 1:30 PM EDT Visit JESSE WREN [address] [place] [address] Kelin Bethea CNM examination following delivery ([facility]) (Primary Dx) 2024 Clinisync Result Encounter [facility] External Department Unsolicited Eliud Alcantara DO 10/06/2024 Clinisync Result Encounter [facility] External Department Unsolicited Kelin Bethea CNM from Last 3 Months [...] drink = 0.6 oz pur e alcohol) [place] Depression Scale Answer Date Recorded [place] Depression Scale Total 8 11/10/2024 The thought [...] (158 lb) 01/05/2025 4:13 PM EDT Height 165.1 cm (5' 5 ) 07/11/2022 12:00 PM EST Body Mass Index 26.29 07/11/2022 12:00 PM EST Plan of Treatment Health Maintenance Due Date Last Done Comments HPV/Cotest 10/06/2021 Influenza Vaccine (#1) 2025 Cervical Cancer Screening 07/11/2025 Pap Smear 07/11/2025 07/11/2022 Procedures Procedure Name Priority Date/Time Associated Diagnosis Comments ALL CBC WITH AUTO DIFF Routine 6:06 AM EDT AMPHETAMINES CONF, MS, UR Routine 10/06/2024 8:05 PM EDT ALL MISCELLANEOUS TEST Routine 8:05 PM EDT [facility] DRUG SCREEN RAPID (URINE) Routine 10/06/2024 8:05 PM EDT [facility] CBC WITH PLATELET NO DIFFERENTIAL Routine 10/06/2024 12:40 PM EDT PAP SMEAR Routine 07/11/2022 12:00 AM EST from Last 3 Months or Most Recently Relevant to Health Maintenance Results * (ABNORMAL) ALL CBC WITH AUTO [...] us Eliud Alcantara DO [facility] Final Result [facility] * AMPHETAMINES CONF, MS, UR (10/06/2024 8:05 PM EDT) [facility] AMPHETCONFUR.1 Negative Obkgud=251 [facility] Comment: Amphetamine test includes Amphetamine and Methamphetamine. Performed at: [facility] [address] [place], [place] [id number] Jowl Trimmer: Edna Gonsalez PhD, Phone: [phone] 10/06/2024 8:05 PM EDT 10/06/2024 8:38 PM EDT Narrative [facility] - 10/16/2024 1:00 PM EDT Kelin Bethea CNM [facility] Final Result Performing Organization Address [facility] Co de Phone Number [facility]IN[facility]NY TB * (ABNORMAL) [facility] DRUG SCREEN RAPID (URINE) (10/06/2024 8:05 PM EDT) Pathologist [facility] CANNABINOID SCREEN URINE NEGATIVE NEGATIVE [facility] PHENCYCLIDINE [...] - 10/06/2024 8:40 PM EDT us Kelin CARMONA [facility] Final [facility] * ALL MISCELLANEOUS TEST (10/06/2024 8:05 PM EDT) Pathologist [facility] MISCELLANEOUS TEST COMMENT . [facility] Comment: Test Ordered: [id number] Barbiturates Confirmation, Ur Specimen Comment: [employer], [employer] FLEX or MAT drug testing: Specimen Comment: -Technical component - Data analysis performed at Specimen Comment: [facility] [address], [place], [address]. Specimen Comment: [phone]. Jowl Trimmer Peggy Weldon MD BARBITURATES Negative MX Reference [...] developed and its performance characteristics determined by [employer]. It has not been cleared or approved by the Food and Drug Administration. Performed at: [facility] [address] [place] [id number] Jowl Trimmer: Nimisha Teague [facility] [place], Phone: [phone] Performed at: [address] [id number] Jowl Trimmer: Ender De Luna PhD, Phone: [phone] 10/06/2024 8:05 PM EDT 10/06/2024 8:38 PM EDT Narrative [facility] - 10/12/2024 12:08 AM EDT [id number] Barbiturates Confirmation, Ur us Kelin Adry Blancoo CN [facility] Final Result [facility] * (ABNORMAL) [facility] CBC WITH PLATELET NO DIFFERENTIAL (10/06/2024 12:40 [...] - 10/06/2024 1:29 PM EDT us Kelin Adry Blancoo CN [facility] Final Result [facility] * Pap Smear (07/11/2022 12:00 AM EST) Swab Cervical swab / Unknown us Eliud Alcantara DO LAB CYTOLOGY ORDERABLES Final Re sult EXTERNAL LAB from Last 3 Months or Most Recently Relevant to Health Maintenance Insurance [employer] [place] Care Teams Methods Specialist Relationship Specialty Start Date End Date Unallocated, Noms MD Matteo [address] [place], [place] [address] PCP - General Family Medicine 04/24/24
--- OUTSIDE RECORDS SUMMARY | 2025-01-05 16:47 | XMS_ITS | CCD ---
Author Organization [facility] Care Team Providers Care Senior Test Analyst Name Role Phone REQUEST, DR PACO LISTED [...] DONG Admitting Unavailable PABLO DONG Attending Unavailable BRYSON, DR JAMES Aquino Consult[employer] Unavailable PABLO DONG [...] WITH AUTO DIFFon BASOPHILS ABSOLUTE AUTO 0 [facility] Basophils/100 WBC (Bld) 0.1 % Low 0.2 - 2.0 % [facility] Eosinophils/100 WBC (Bld) 0.1 % Low 0.9 - 7.0 % [facility] Erythrocyte distribution width (RBC) [Ratio] 13.9 % 11.0 - 15.0 % [facility] Hematocrit (Bld) [Volume fraction] 23.6 % Critically low 36.0 - 48.0 % [facility] Comment on above: RESULTS CALLED TO BRENDEN JUARES RN Hemoglobin (Bld) [Mass/Vol] 8 g/dL Low 12.0 - 16.0 g/dL [facility] IMMATURE GRANULOCYTES ABS AUTO 0.04 High [facility] Immature granulocytes/100 WBC (Bld) 0.3 % 0.0 - 0.5 % [facility] Interpretation and review of laboratory results Abnormal [facility] LYMPHOCYTES ABSOLUTE AUTO 3.1 [facility] Lymphocytes/100 WBC (Bld) 21.8 % 20.5 - 60.0 % [facility] MCH (RBC) [Entitic mass] 29.9 pg 26.7 - 34.0 pg [facility] MCHC (RBC) [Mass/Vol] 33.9 g/dL 29.9 - 35.2 g/dL [facility] MCV (RBC) [Entitic vol] 88.1 fL 81.0 - 99.0 fL [facility] MONOCYTES ABSOLUTE AUTO 1 High [facility] Monocytes/100 WBC (Bld) 7 % 1.7 - 12.0 % [facility] NEUTROPHILS ABSOLUTE AUTO 10.2 High [facility] Neutrophils/100 WBC (Bld) 70.7 % 43.0 - 75.0 % [facility] Platelet mean volume (Bld) [Entitic vol] 12.2 fL 9.5 - 13.5 fL [facility] TBH EO # 0 [facility] TBH PLT 205 [facility] TB RBC 2.68 Low [facility] TBH WBC 14.4 High [facility] HMHP CBC WITH PLATELET NO DI FFERENTIALon 10-06-2024 Erythrocyte distribution width (RBC) [Ratio] 13.4 % 11.0 - 15.0 % [facility] Hematocrit (Bld) [Volume fraction] 33 % Low 36.0 - 48.0 % [facility] Hemoglobin (Bld) [Mass/Vol] 11.3 g/dL Low 12.0 - 16.0 g/dL [facility] Interpretation and review of laboratory results Abnormal [facility] MCH (RBC) [Entitic mass] 29.1 pg 26.7 - 34.0 pg [facility] MCHC (RBC) [Mass/Vol] 34.2 g/dL 29.9 - 35.2 g/dL [facility] MCV (RBC) [Entitic vol] 85.1 fL 81.0 - 99.0 fL [facility] Platelet mean volume (Bld) [Entitic vol] 13.1 fL 9.5 - 13.5 fL [facility] TB PLT 293 [facility] TB RBC 3.88 Low [facility] TBH WBC 19.8 High [facility] US OB FOLLOW UP [...] and approved by the interpreting radiologist. [facility] for pregnancyOrdered By: Lee Yost on 03-25-2024 [facility] [employer] Work Phone: OB LIMITED 1+ FETUSESon 1 [...] US for pregnancyon Radiology Study observation (narrative) [facility] US OB < 14 [...] 66on 07-19-2022 . . Normal [facility] Comment on above: Result Comment: Perf ormed at: WB Performed By: #### [id number] #### [facility] [address] [place] [address] Dr. Elise Arboleda Age Gdln ACOG Testing 30-65 Normal [facility] Comment on above: Performed By: #### [id number] #### [facility] [address] [address] [address] Elise Arboleda DIAGNOSIS: Comment Normal [facility] Comment on above: Result Comment: NEGA TIVE FOR INTRAEPITHELIAL LESION OR MALIGNANCY. Performed at: WB Performed By: #### [id number] #### [facility] [address] [address] [address] Elise Arboleda HPV Aptima Negative Normal Negative [facility] Comment on above: Result Comment: This nucleic acid amplification test detects fourteen high-risk HPV types (16,18,31,33,35,39,45,51,52,56,58,59,66,68) without differentiation. Performed at: =G Performed By: #### [id number] #### [facility] [address] [address] [address] Elise Arboleda HPV Genotype Reflex Comment Normal [facility] Comment on above: Result Comment: Crit eria not met, HPV Genotype not performed. Performed at: WB Performed By: #### [id number] #### [facility] [address] [place] [address] Dr. Elise Arboleda Methodology: Comment Normal [facility] Comment on above: Result Comment: This liquid based ThinPrep(R) pap test was screened with the use of an image guided system. Performed at: WB Performed By: #### [id number] #### [facility] [address] [place] [address] Dr. Elise Arboleda Note: Comment Normal [facility] Comment on above: Result Comment: The Pap smear is a screening test designed to aid in the detection of premalignant and malignant conditions of the uterine cervix. It is not a diagnostic procedure and should not be used as the sole means of detecting cervical cancer. Both false-positive and false-negative reports do occur. . Performed at: WB Performed By: #### [id number] #### [facility] [address] [place] [address] Dr. Elise Arboleda Performed by: Comment Normal [facility] Comment on above: Result Comment: Louis De Los Santos, Him Coder (ASCP) Performed at: WB Performed By: #### [id number] #### [facility] [address] [place] [address] Dr. Elise Arboleda Specimen adequacy: Comment Normal [facility] Comment on above: Result Comment: Sati sfactory for evaluation. Endocervical and/or squamous metaplastic cells (endocervical component) are present. Performed at: WB Performed By: #### [id number] #### [facility] [address] [place] [address] HEAD WO CONon [...] JAMES BHANDARI Date: 2022-05-15 13:15 Normal [facility] ARNALDO - QUALITATIVEo n 05-10-2022 , QUAL Negative Normal NEGATIVE [facility] Comment on above: Performed By: #### D ATPREG #### [facility] [address] [place] [address] Dr. lEise Arboleda CBC AUTO DIFFon 03-27-2022 BASO # 0.0 103/ul Normal 0.0-0.1 [facility] Comment on above: Performed By: #### C BC #### [facility] [address] [place] [address] Dr. Elise Arboleda Basophils/100 WBC (Bld) 0.6 % Normal 0.2-2.0 [facility] Comment on above: Performed By: #### C BC #### [facility] [address] [place] [address] Dr. Elise Arboleda EO # 0.1 103/ul Normal 0.0-0.7 [facility] Comment on above: Performed By: #### C BC #### [facility] [address] [place] [address] Dr. Elise Arboleda Eosinophils/100 WBC (Bld) 1.6 % Normal 0.9-7.0 [facility] Comment on above: Performed By: #### C BC #### [facility] [address] [place] [address] Dr. Elise Arboleda Erythrocyte distribution width (RBC) [Ratio] 12.3 % Normal 11.0-15.0 [facility] Comment on above: Performed By: #### C BC #### [facility] [address] [place] [address] Dr. Elise Arboleda Hematocrit (Bld) [Volume fraction] 38.4 % Normal 36.0-48.0 [facility] Comment on above: Performed By: #### C BC #### [facility] [address] [address] [address] Elise Arboleda Hemoglobin (Bld) [Mass/Vol] 12.9 g/dL Normal 12.0-16.0 [facility] Comment on above: Performed By: #### C BC #### [facility] [address] [address] [address] Elise Arboleda IG # 0.01 10e3/ul Normal 0.00-0.03 [facility] Comment on above: Performed By: #### C BC #### [facility] [address] [place] [address] Dr. Elise Arboleda IG % 0.1 % Normal 0.0-0.5 [facility] Comment on above: Performed By: #### C BC #### [facility] [address] [place] [address] Dr. Elise Arboleda LYMPH # 3.5 103/ul Normal 1.2-3.8 [facility] Comment on above: Performed By: #### C BC #### [facility] [address] [place] [address] Dr. Elise Arboleda Lymphocytes/100 WBC (Bld) 49.4 % Normal 20.5-60.0 [facility] Comment on above: Performed By: #### C BC #### [facility] [address] [place] [address] Dr. Elise Arboleda MANUAL DIFF REQ NO Normal [facility] Comment on above: Performed By: #### C BC #### [facility] [address] [place] [address] Dr. Elise Arboleda MCH (RBC) [Entitic mass] 30.6 pg Normal 26.7-34.0 [facility] Comment on above: Performed By: #### C BC #### [facility] [address] [place] [address] Dr. Elise Arboleda MCHC (RBC) [Mass/Vol] 33.6 g/dL Normal 29.9-35.2 [facility] Comment on above: Performed By: #### C BC #### [facility] [address] [address] [address] Elise Arboleda MCV (RBC) [Entitic vol] 91.2 fL Normal 81.0-99.0 [facility] Comment on above: Performed By: #### C BC #### [facility] [address] [address] [address] Elise Arboleda MONO # 0.5 103/ul Normal 0.3-0.8 [facility] Comment on above: Performed By: #### C BC #### [facility] [address] [address] [address] Elise Arboleda Monocytes/100 WBC (Bld) 6.6 % Normal 1.7-12.0 [facility] Comment on above: Performed By: #### C BC #### [facility] [address] [place] [address] Dr. Elise Arboleda NEUT # 2.9 103/ul Normal 1.4-6.5 [facility] Comment on above: Performed By: #### C BC #### [facility] [address] [place] [address] Dr. Elise Arboleda Neutrophils/100 WBC (Bld) 41.7 % Critically low 43.0-75.0 [facility] Comment on above: Performed By: #### C BC #### [facility] [address] [place] [address] Dr. Elise Arboleda Platelet mean volume (Bld) [Entitic vol] 11.8 fL Normal 9.5-13.5 [facility] Comment on above: Performed By: #### C BC #### [facility] [address] [place] [address] Dr. Elise Arboleda PLT 258 103/ul Normal 150-450 [facility] Comment on above: Performed By: #### C BC #### [facility] [address] [place] [address] Dr. Elise Arboleda RBC 4.21 106/ul Normal 4.20-5.40 [facility] Comment on above: Performed By: #### C BC #### [facility] [address] [place] [address] Dr. Elise Arboleda WBC 7.0 103/ul Normal 4.0-11.0 [facility] Comment on above: Performed By: #### C BC #### [facility] [address] [place] [address] Dr. Elise Arboleda FREE T4on 03-27-2022 Free T4 [Mass/Vol] 1.06 ng/dL Normal 0.76-1.46 [facility] Comment on above: Performed By: #### F T4 #### [facility] [address] [place] [address] Dr. Elise Arboleda GLYCOHEMOGLOBIN A1Con 2021 ADA RECOMMENDATION SEE BELOW Normal [facility] Comment on above: Result Comment: ADA RECOMMENDED LIMIT 4.0 - 6.0 ADA THERAPEUTIC TARGET < 7.0 ACTION SUGGESTED > 7.0 Performed By: #### A 1C #### [facility] [address] [place] [address] Dr. Elise Arboleda Glucose [Mass/Vol] 105 mg/dL Normal [facility] Comment on above: Performed By: #### A 1C #### [facility] [address] [place] [address] Dr. Elise Arboleda HbA1c (Bld) [Mass fraction] 5.3 % Normal 4.5-6.2 [facility] Comment on above: Performed By: #### A 1C #### [facility] [address] [place] [address] Dr. Elise Arboleda TSHon 03-27-2022 TSH 0.837 uIU/mL Normal 0.358-3.740 [facility] Comment on above: Performed By: #### T SH #### [facility] [address] [place] [address] Dr. Elise Arboleda Vital Signs Date Time Vital Sign Value Performing Clinician Jane dunn 11-10-2024 17:13-0400 Body mass index (BMI) [Ratio] 25.13 kg/m2 Rohit CARMONA Work Phone: [facility] 11-10-2024 17:13-0400 Body weight 68.49 kg Rohit Floro CNM Work Phone: [facility] 11-10-2024 17:13-0400 Diastolic blood pressure 74 mm[Hg] Rohit Floro CNM Work Phone: [facility] 11-10-2024 17:13-0400 Systolic blood pressure 120 mm[Hg] Rohit Floro CNM Work Phone: [facility] 10-14-2024 13:42-0400 Body mass index (BMI) [Ratio] 25.13 kg/m2 Rohit Floro CNM Work Phone: [facility] 10-14-2024 13:42-0400 Body weight 68.49 kg Rohit Floro CNM Work Phone: [facility] 10-14-2024 13:42-0400 Diastolic blood pressure 80 mm[Hg] Rohit Floro CNM Work Phone: [facility] 10-14-2024 13:42-0400 Systolic blood pressure 122 mm[Hg] Rohit Floro CNM Work Phone: [facility] 09-22-2024 16:07-0400 Body mass index (BMI) [Ratio] 28.12 kg/m2 Rohit Floro CNM Work Phone: [facility] 09-22-2024 16:07-0400 Body weight 76.66 kg Rohit Floro CNM Work Phone: [facility] 09-22-2024 16:07-0400 Diastolic blood pressure 70 mm[Hg] Rohit Floro CNM Work Phone: [facility] 09-22-2024 16:07-0400 Systolic blood pressure 110 mm[Hg] Rohit Floro CNM Work Phone: [facility] 09-08-2024 17:31-0400 Body mass index (BMI) [Ratio] 28.62 kg/m2 Rohit Floro CNM Work Phone: [facility] 09-08-2024 17:31-0400 Body weight 78.02 kg Rohit Floro CNM Work Phone: [facility] 09-08-2024 17:31-0400 Diastolic blood pressure 80 mm[Hg] Rohit Floro CNM Work Phone: [facility] 09-08-2024 17:31-0400 Systolic blood pressure 122 mm[Hg] Rohit Floro CNM Work Phone: [facility] 08-20-2024 16:36-0400 Body mass index (BMI) [Ratio] 27.79 kg/m2 Rohit Floro CNM Work Phone: [facility] 08-20-2024 16:36-0400 Body weight 75.75 kg Rohit Floro CNM Work Phone: [facility] 08-20-2024 16:36-0400 Diastolic blood pressure 60 mm[Hg] Rohit Floro CNM Work Phone: [facility] 08-20-2024 16:36-0400 Systolic blood pressure 110 mm[Hg] Rohit Floro CNM Work Phone: [facility] 05-22-2024 09:21-0500 Body mass index (BMI) [Ratio] 27.12 kg/m2 Rohit Floro CNM Work Phone: [facility] 05-22-2024 09:21-0500 Body weight 73.94 kg Rohit Floro CNM Work Phone: [facility] 05-22-2024 09:21-0500 Diastolic blood pressure 78 mm[Hg] Rohit Floro CNM Work Phone: [facility] 05-22-2024 09:21-0500 Systolic blood pressure 118 mm[Hg] Rohit Floro CNM Work Phone: [facility] 04-24-2024 09:43-0500 Body mass index (BMI) [Ratio] 26.96 kg/m2 Rohit Floro CNM Work Phone: [facility] 04-24-2024 09:43-0500 Body weight 73.48 kg Rohit Blancoo CNM Work Phone: [facility] 04-24-2024 09:43-0500 Diastolic blood pressure 80 mm[Hg] Rohit Bellao CNM Work Phone: [facility] 04-24-2024 09:43-0500 Systolic blood pressure 120 mm[Hg] Rohit Bellao CNM Work Phone: [facility] 03-20-2024 15:41-0500 Body mass index (BMI) [Ratio] 27.12 kg/m2 Rohit Bellao CNM Work Phone: [facility] 03-20-2024 15:41-0500 Body weight 73.94 kg Rohit Floro CNM Work Phone: [facility] Encounters Encounter Date Encounter Type Care Provider Facility Start: 11-10-2024 End: 11-10-2024 ambulatory ROHIT L FLORO Not Available Start: 11-10-2024 End: 11-10-2024 Office outpatient visit 15 minutes Rohit L Floro CNM Work Phone: [facility] Comment on above: examinati on following delivery ([facility]) (Primary Dx) Start: 10-14-2024 End: [...] L Floro CNM Work Phone: [facility] Comment on above: Screening for diabet es mellitus (DM) (Primary Dx); Encounter for care of first , third trimester ([facility]) Start: 08-20-2024 End: 08-20-2024 Bamboo flowsheet [...] al care of first , second trimester ([facility]) (Primary Dx); Nausea/vomiting in ([facility]) Start: 05-22-2024 End: 05-22-2024 ambulatory ROHIT [...] PM EDT Visit [facility] [address] [place] [id number] Rohit Bethea CNM [address] [place] [address] [facility] Start: 2024 End: 2024 Patient encounter procedure 2024 9:30 AM EDT Routine [facility] [address] [place] [id number] Rohit Bethea CNM [address] [place] [address] [facility] Start: 09-29-2024 End: 09-29-2024 Patient encounter procedure 09/29/2024 4:30 PM EDT Routine [facility] [address] [place] [id number] Rohit Bethea, KRISTINEM [address] [place] [address] [facility] Start: 09-22-2024 End: 09-22-2024 Patient encounter procedure 09/22/2024 4:00 PM EDT Routine [facility] [address] [place] [id number] Rohit Bethea, [facility] [address] [place] [address] [facility] Start: 09-15-2024 End: 09-15-2024 Patient encounter procedure 09/15/2024 5:15 PM EDT Routine [facility] [address] [place] [phone] Neema Rohit L, [facility] [address] [place] [address] [facility] Start: 09-08-2024 End: 09-08-2025 [...] AM EST Routine [facility] [address] [place] [id number] Rohit Bethea, CNM [address] [place] [address] [facility] Start: 03-24-2024 End: [...] first trimester Expected: 03/24/2024 (Approximate), Expires: 03/24/2025 [facility] Comment on above: Expected: 03/24/2024 (Approximate), [...] first trimester Expected: 03/24/2024 (Approximate), Expires: 03/24/2025 [facility] Work Phone: Comment on above: Expected: 03/24/2024 (Approximate), Expires: 03/24/2025 Start: 03-24-2024 End: 03-24-2025 Hepatitis C virus Ab [Presence] in Serum or Plasma by Immunoassay Hepatitis C antibody Lab Routine Encounter for supervision of normal first , first trimester Expected: 03/24/2024 (Approximate), Expires: 03/24/2025 [facility] Comment on above: Expected: 03/24/2024 (Approximate), Expires: 03/24/2025 Start: 03-24-2024 End: 03-24-2025 HIV-1/HIV-2 antigen/antibody combination immunoassay HIV-1 and HIV-2 antibodies Lab Routine Encounter for supervision of normal first , first trimester Expected: 03/24/2024 (Approximate), Expires: 03/24/2025 [facility] Comment on above: Expected: 03/24/2024 (Approximate), Expires: 03/24/2025 Start: 03-24-2024 End: 03-24-2025 Neisseria gonorrhoeae DNA [Presence] in Cervical mucus by STANLEY with probe detection C. trachomatis / N. gonorrhoeae, DNA probe Pathology and Cytology Routine Encounter for supervision of normal first , first trimester Expected: 03/24/2024 (Approximate), Expires: 03/24/2025 [facility] Comment on above: Expected: [...] first trimester Expected: 03/24/2024 (Approximate), Expires: 03/24/2025 [facility] Comment on above: Expected: 03/24/2024 (Approximate), Expires: 03/24/2025 Start: 03-24-2024 End: 03-24-2025 URINALYSIS MICROSCOPIC URINALYSIS MICROSCOPIC Lab Routine Encounter for supervision of normal first , first trimester Expected: 03/24/2024 (Approximate), Expires: 03/24/2025 [facility] Comment on above: Expected: 03/24/2024 (Approximate), Expires: 03/24/2025 Start: 03-20-2024 End: 03-20-2024 Professional / ancillary services management 03/20/2024 4:15 PM EST Ancillary Procedure [facility] [address] [place] [address] [facility] Start: 01-13-2024 Influenza vaccination Influenza Vacc ine (#1) [facility] Start: 07-16-2023 End: 07-16-2023 Patient encounter procedure 07/16/2023 10:00 AM EST Procedure Visit [facility] [address] [place] [address] Bertha Alcantara, DO [address] [place] [address] [phone] (work) [facility] Start: 10-06-2021 Screening for malign ant neoplasm of cervix [facility] Start: 10-06-2012 Screening for malign ant neoplasm of cervix Pap Smear [facility] Payers Date Payer Category Payer Medicaid [id number] 2024 Medicaid [id number] 1990 Unknown [id number] 2.16.84 [id number] 1991 Unknown [id number] 2.16.84 [id number] 1991 Unknown [id number] 2.16.84 [id number] 1991 Unknown [id number] 2.16.8 [id number] 1991 Unknown [id number] 2.16.8 40.1.946569.3.579.2.9 1991 Unknown [id number] 2.16.84 0.1.158683.3.579.2.9 1991 Unknown [id number] 2.16.84 0.1.263639.3.579.2.1259 1991 Unknown [id number] 2.16.84 0.1.395168.3.579.2.1259 1991 Unknown [id number] 2.16.84 0.1.831438.3.579.2.9 1991 Unknown [id number] 2.16.84 0.1.211794.3.579.2.9 1991 Unknown [id number] 2.16.84 0.1.845765.3.579.2.9 1991 Unknown [id number] 2.16.84 0.1.307216.3.579.2.1259 1959 Self-pay 1959 Unknown [id number] 1959 Unknown [id number] Unknown [id number] 2.16.84 [id number] Social History Date Type Detail Facility Tobacco smoking stat [facility] Tobacco smoking consumption unknown [facility] Start: 1990 Sex Assigned At Not on file [facility] Start: 03-20-2024 End: 11-10-2024 Gender identity Not on file [facility] Start: 03-20-2024 Tobacco smoking stat [facility] Never smoked tobacco [facility] Start: [...] will cover with lancets and test strips. [id number] Start: 08-27-2024 End: 11-10-2024 Clinical Notes 03-20-2024 [...] weeks. normal exam documented in this encounter [facility] 10-14-2024 History of Presen t [...] encounter. normal exam documented in this encounter [facility] 09-22-2024 History of Presen t [...] a routine visit. documented in this encounter [facility] 09-08-2024 History of Presen [...] a routine visit. documented in this encounter [facility] 08-20-2024 History of Presen t illness Narrative Subjective No chief complaint on file. Loretta Tesfyae is a 33 y.o. at 33w3d with [...] for care of first , third trimester ([facility]) Continue vitamin. Labs reviewed. GBS taken. Expected mode of delivery Follow up in 1 week for a routine visit. documented in this encounter [facility] 05-22-2024 History of Presen t [...] for care of first , second trimester ([facility]) Nausea/vomiting in ([facility]) Continue vitamin. Labs reviewed. Rhogam GTT . Follow up in 4 weeks for a routine visit. documented in this encounter [facility] 04-24-2024 History of Presen [...] a routine visit. documented in this encounter [facility] 04-22-2024 Telephone encounter Note Form atting of this note might be different from the original. Pt has a [facility] appt at 9:30 and wanted to know if you could give her a proof of letter. She misplaced the one that [facility] gave her. But she is going to also call them to see if they kept a copy. [facility] 04-22-2024 Miscellaneous Notes Formattin g of this note might be different from the original. Pt has a [facility] appt at 9:30 and wanted to know if you could give her a proof of letter. She misplaced the one that [facility] gave her. But she is going to also call them to see if they kept a copy. documented in this encounter [facility] 04-02-2024 Telephone encounter Note [...] She found the bleeding when she wiped. [phone] [facility] 04-02-2024 Miscellaneous Notes Formattin [...] She found the bleeding when she wiped. [phone] documented in this encounter [facility] 03-24-2024 Note Addended by: LINDA QUINONES on: 03/24/2024 11:54 AM Modules accepted: Orders [facility] 03-24-2024 Miscellaneous Notes Addended [...] pt. Thank you. documented in this encounter [facility] 03-24-2024 Note Addended by: LINDA QUINONES on: 03/24/2024 11:51 AM Modules accepted: Orders [facility] 03-24-2024 Telephone encounter Note Form atting of this note might be different from the original. Labs ordered [facility] 03-24-2024 Telephone encounter Note Form atting [...] still nauseated. Please advise pt. Thank you. [facility] 03-20-2024 History of Presen t illness Narrative Subjective Loretta Tesfaye is a 33 y.o. at 11w4d with a working estimated date of delivery of 10/05/2024, by Last Menstrual Period who presents for an initial visit. This is planned. 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 PVU and all questions answered. We did discuss place of delivery. Patient should plan to go to [facility] for all services unless an emergency and they need to go to the closest ER. We can make other arrangements possibly if patient would like to deliver at another facility but I did explain I am now at [facility] 100% of the time and would like [...] for care of first , second trimester ([facility])- Primary Nausea/vomiting in ([facility]) Unspecified vomiting of , unspecified as to [...] DATE CREATED AUTHOR AUTHOR'S ORGANIZ ATION 11/16/2024 [facility] Care Teams (unrecognized sec tion and content) Senior Test Analyst Relationship Specialty Start Date End Date Unallocated, Tres Felipe MD [facility] [place] [address] PCP - General Family Medicine 04/24/24 Senior Test Analyst Relationship Specialty Start Date End Date Unallocated, Tres Felipe MD [facility] [place] [address] PCP - General Family Medicine 04/24/24 Senior Test Analyst Relationship Specialty Start Date End Date Unallocated, Tres Felipe MD [facility] [place] [address] PCP - General Family Medicine 04/24/24 Senior Test Analyst Relationship Specialty Start Date End Date Unallocated, MD [facility] [place] [address] PCP - General Family Medicine 04/24/24 Senior Test Analyst Relationship Specialty Start Date End Date Unallocated, MD Nash Brown [facility] [place] [address] PCP - General Family Medicine 04/24/24 Senior Test Analyst Relationship Specialty Start Date End Date Unallocated, Tres Felipe MD [address] [place] [address] PCP - General Family Medicine 04/24/24 Senior Test Analyst Relationship Specialty Start Date End Date Unallocated, [place] [address] PCP - General Family Medicine 04/24/24 Senior Test Analyst Relationship Specialty Start Date End Date Unallocated, Tres Felipe MD [facility] [place] [address] PCP - General Family Medicine 04/24/24 Senior Test Analyst Relationship Specialty Start Date End Date Unallocated, Tres Felipe MD [facility] [place] [address] PCP - General Family Medicine 04/24/24 Senior Test Analyst Relationship Specialty Start Date End Date Unallocated, Tres Felipe MD [facility] [place] [address] PCP - General Family Medicine 04/24/24 Reason [...] BE BASED ON THE PRIMARY CLINICAL RECORDS. [facility]. provides no warranty or guarantee of the accuracy or completeness of information in this document.
[2025-01-05 17:59] LABS: Thyroid Stimulating Hormone 1.305 uIU/mL (0.358-3.740)
[2025-01-05 18:28] LABS: Hematocrit 36.1 % (36.0-48.0); Hemoglobin 11.7 g/dL (12.0-16.0); Immature Granulocytes Abs Auto 0.01 10^3/uL (0.00-0.03); Immature Granulocytes Pct Auto 0.1 % (0.0-0.5); Lymphocytes Absolute Auto 4.2 10^3/uL (1.2-3.8); Mean Corpuscular HGB Conc 32.4 g/dL (29.9-35.2); Mean Corpuscular Hemoglobin 27.8 pg (26.7-34.0); Mean Corpuscular Volume 85.7 fL (81.0-99.0); Platelet Count 307 10^3/uL (150-450); Red Blood Count 4.21 10^6/uL (4.20-5.40); White Blood Count 8.2 10^3/uL (4.0-11.0)
[2025-01-07 04:07] LABS: FSH 7.1 mIU/mL (.)
[2025-01-09 13:08] LABS: Calcitriol(1,25 di-OH Vit D) 50.7 pg/mL (24.8-81.5)
== END 2025-01-05 16:41 | disposition home or self-care (01) ==
PROVIDERS: Visit Provider Nurse Practitioner Family
DX: E28.2 Polycystic ovarian syndrome (principal); O92.5 Suppressed lactation
CPT/HCPCS: 36415; 82627; 82652; 83001; 83002; 83036; 84439; 84443; 84702; 85025

== ENCOUNTER 2025-01-27 08:08 | Outpatient (OUT) | payer MEDICAID, SELFPAY ==
--- OUTSIDE RECORDS SUMMARY | 2025-01-27 08:12 | XMS_ITS | CCD ---
Author Organization [facility] Care Team Providers Care Electromedical Equipment Repairer Name Role Phone REQUEST, DR ANTONIO LISTED [...] DONG Admitting Unavailable PABLO DONG Attending Unavailable [place], DR JAMES Aquino Consulting Unavailable PABLO DONG Consulting Unavailable Unavailable Primary Care Provider Erica e Unallocated , Noms Provider Primary Care Provi helena ROHIT BETHEA Attending Unavailable FLOROROHIT Referring Unavailable FLOROROHIT Attending Unavailable FLOROROHIT Attending Unavailable FLORO, ROHIT Rider Attending Unavailable FLOROROHIT Attending Unavailable FLOROROHIT Attending Unavailable FLOROROHIT Referring Unavailable FLORO, ROHIT Rider Referring Unavailable FLOROROHIT Attending Unavailable FLOROROHIT Attending Unavailable FLOROROHIT Attending Unavailable QUINTONBERTHA Attending Unavailable Medications Current Medications Medication Drug Class(es) Dates Sig (Normalized) Sig (Original) ibuprofen 400 mg oral tablet (8 sources) Nonsteroidal Anti-inflammatory Drug Start: 10-08-2024 take [...] PAPILLOMAVIRUS] Onset: 07-14-2022 Episodic Other complications of ; puerperium affecting management of mother (4 sources) Suppressed ; Translations: [Suppressed ] Onset: 01-06-2025 01-05-2025 Episodic Other complications of (1 source) Abdominal [...] [POLYCYSTIC OVARIAN SYNDROME] Onset: 03-27-2022 Chronic Other endocrine disorders (2 sources) Polycystic ovary syndrome; Translations: [Polycystic ovarian syndrome] 01-05-2025 Chronic Other and delivery including normal (17 [...] WITH AUTO DIFFon BASOPHILS ABSOLUTE AUTO 0 [facility] Basophils/100 WBC (Bld) 0.5 % 0.2 - 2.0 % [facility] Eosinophils/100 WBC (Bld) 1.8 % 0.9 - 7.0 % [facility] Erythrocyte distribution width (RBC) [Ratio] 14.4 % 11.0 - 15.0 % [facility] Hematocrit (Bld) [Volume fraction] 36.1 % 36.0 - 48.0 % [facility] Hemoglobin (Bld) [Mass/Vol] 11.7 g/dL Low 12.0 - 16.0 g/dL [facility] IMMATURE GRANULOCYTES ABS AUTO 0.01 [facility] Immature granulocytes/100 WBC (Bld) 0.1 % 0.0 - 0.5 % [facility] Interpretation and review of laboratory results Abnormal [facility] LYMPHOCYTES ABSOLUTE AUTO 4.2 High [facility] Lymphocytes/100 WBC (Bld) 51.5 % 20.5 - 60.0 % [facility] MCH (RBC) [Entitic mass] 27.8 pg 26.7 - 34.0 pg [facility] MCHC (RBC) [Mass/Vol] 32.4 g/dL 29.9 - 35.2 g/dL [facility] MCV (RBC) [Entitic vol] 85.7 fL 81.0 - 99.0 fL [facility] MONOCYTES ABSOLUTE AUTO 0.6 [facility] Monocytes/100 WBC (Bld) 7 % 1.7 - 12.0 % [facility] NEUTROPHILS ABSOLUTE AUTO 3.2 [facility] Neutrophils/100 WBC (Bld) 39.1 % Low 43.0 - 75.0 % [facility] Platelet mean volume (Bld) [Entitic vol] 12.6 fL 9.5 - 13.5 fL [facility] TBH EO # 0.2 [facility] PLT 307 [facility] RBC 4.21 [facility] WBC 8.2 [facility] ALL THYROID STIM HORMONEon 0 01-05-2025 TSH Qn 1.305 m[IU]/L [facility] MLR HEMOGLOBIN A1Con 025 Glucose [Mass/Vol] 100 mg/dL [facility] HbA1c (Bld) [Mass fraction] 5.1 % 4.5 - 6.2 % [facility] Comment on above: ADA RECOMMENDED LIMI T 4.0 - 6.0 ADA THERAPEUTIC TARGET < 7.0 [facility]-05 [facility] TBH PREG QUANT HCGon 025 HCG QUANTITATIVE <1 mIU/mL [facility] Comment on above: 5-50 0.2-1 WEEK 50-500 1-2 WEEKS 100-5,000 2-3 WEEKS 500-10,000 3-4 WEEKS 1,000-50,000 4-5 WEEKS 10,000-100,000 5-6 WEEKS 15,000-200,000 6-8 WEEKS 10,000-100,000 2-3 MONTHS ALL CBC WITH AUTO DIFFon BASOPHILS ABSOLUTE AUTO 0 [facility] Basophils/100 WBC (Bld) 0.1 % Low 0.2 - 2.0 % [facility] Eosinophils/100 WBC (Bld) 0.1 % Low 0.9 - 7.0 % [facility] Erythrocyte distribution width (RBC) [Ratio] 13.9 % 11.0 - 15.0 % [facility] Hematocrit (Bld) [Volume fraction] 23.6 % Critically low 36.0 - 48.0 % [facility] Comment on above: RESULTS CALLED TO BRENDEN JUARES,RN Hemoglobin (Bld) [Mass/Vol] 8 g/dL Low 12.0 - 16.0 g/dL [facility] IMMATURE GRANULOCYTES ABS AUTO 0.04 High [facility] Immature granulocytes/100 WBC (Bld) 0.3 % 0.0 - 0.5 % [facility] Interpretation and review of laboratory results Abnormal [facility] LYMPHOCYTES ABSOLUTE AUTO 3.1 [facility] Lymphocytes/100 WBC (Bld) 21.8 % 20.5 - 60.0 % [facility] MCH (RBC) [Entitic mass] 29.9 pg 26.7 - 34.0 pg [facility] MCHC (RBC) [Mass/Vol] 33.9 g/dL 29.9 - 35.2 g/dL [facility] MCV (RBC) [Entitic vol] 88.1 fL 81.0 - 99.0 fL [facility] MONOCYTES ABSOLUTE AUTO 1 High [facility] Monocytes/100 WBC (Bld) 7 % 1.7 - 12.0 % [facility] NEUTROPHILS ABSOLUTE AUTO 10.2 High [facility] Neutrophils/100 WBC (Bld) 70.7 % 43.0 - 75.0 % [facility] Platelet mean volume (Bld) [Entitic vol] 12.2 fL 9.5 - 13.5 fL [facility] TBH EO # 0 [facility] TB PLT 205 [facility] RBC 2.68 Low [facility] WBC 14.4 High [facility] WITH PLATELET NO DI FFERENTIALon 10-06-2024 Erythrocyte distribution width (RBC) [Ratio] 13.4 % 11.0 - 15.0 % [facility] Hematocrit (Bld) [Volume fraction] 33 % Low 36.0 - 48.0 % [facility] Hemoglobin (Bld) [Mass/Vol] 11.3 g/dL Low 12.0 - 16.0 g/dL [facility] Interpretation and review of laboratory results Abnormal [facility] MCH (RBC) [Entitic mass] 29.1 pg 26.7 - 34.0 pg [facility] MCHC (RBC) [Mass/Vol] 34.2 g/dL 29.9 - 35.2 g/dL [facility] MCV (RBC) [Entitic vol] 85.1 fL 81.0 - 99.0 fL [facility] Platelet mean volume (Bld) [Entitic vol] 13.1 fL 9.5 - 13.5 fL [facility] TB PLT 293 [facility] RBC 3.88 Low [facility] WBC 19.8 High [facility] US OB FOLLOW UP TRANSABDOMIN AL APPROACHon [...] signed and approved by the interpreting radiologist. [facility] US for pregnancyOrdered By: Lee Yost on 03-25-2024 [facility] Work Phone: US OB LIMITED 1+ [...] US for pregnancyon Radiology Study observation (narrative) [facility] US OB < 14 WEEKS EARLYon [...] to 66on 07-19-2022 . . Normal [facility] Comment on above: Result Comment: Perf ormed at: WB Performed By: #### [id number] #### [facility] [address] [place] [address] Dr. Elise Arboleda Age Gdln ACOG Testing 30-65 Normal [facility] Comment on above: Performed By: #### [id number] #### [facility] [address] [address] [address] Elise Arboleda DIAGNOSIS: Comment Normal [facility] Comment on above: Result Comment: NEGA TIVE FOR INTRAEPITHELIAL LESION OR MALIGNANCY. Performed at: WB Performed By: #### [id number] #### [facility] [address] [address] [address] Elise Arboleda HPV Aptima Negative Normal Negative [facility] Comment on above: Result Comment: This nucleic acid amplification test detects fourteen high-risk HPV types (16,18,31,33,35,39,45,51,52,56,58,59,66,68) without differentiation. Performed at: =G Performed By: #### [id number] #### [facility] [address] [place] [address] Dr. Elise Arboleda HPV Genotype Reflex Comment Normal [facility] Comment on above: Result Comment: Crit eria not met, HPV Genotype not performed. Performed at: WB Performed By: #### [id number] #### [facility] [address] [place] [address] Dr. Elise Arboleda Methodology: Comment Normal [facility] Comment on above: Result Comment: This liquid based ThinPrep(R) pap test was screened with the use of an image guided system. Performed at: WB Performed By: #### [id number] #### [facility] [address] [place] [address] Dr. Elise Arboleda Note: Comment Normal [facility] Comment on above: Result Comment: The Pap smear is a screening test designed to aid in the detection of premalignant and malignant conditions of the uterine cervix. It is not a diagnostic procedure and should not be used as the sole means of detecting cervical cancer. Both false-positive and false-negative reports do occur. . Performed at: WB Performed By: #### [id number] #### [facility] [address] [place] [address] Dr. Elise Arboleda Performed by: Comment Normal [facility] Comment on above: Result Comment: Louis De Los Santos, Mover Helper (ASCP) Performed at: WB Performed By: #### [id number] #### [facility] [address] [place] [address] Dr. Elise Arboleda Specimen adequacy: Comment Normal [facility] Comment on above: Result Comment: Sati sfactory for evaluation. Endocervical and/or squamous metaplastic cells (endocervical component) are present. Performed at: WB Performed By: #### [id number] #### [facility] [address] [place] [address] Dr. Elise Arboleda Cytology Cervical or vaginal smear or scraping studyOrdered By: Myrna Rodriguez on 07-11-[address] [facility] [address] HEAD WO CONon 05-15-2022 CT HEAD [...] , QUAL Negative Normal NEGATIVE [facility] Comment on above: Performed By: #### D ATPREG #### [facility] [address] [place] [address] Dr. Elise Arboleda CBC AUTO DIFFon 03-27-2022 BASO # 0.0 103/ul Normal 0.0-0.1 [facility] Comment on above: Performed By: #### C BC #### [facility] [address] [place] [address] Dr. Elise Arboleda Basophils/100 WBC (Bld) 0.6 % Normal 0.2-2.0 [facility] Comment on above: Performed By: #### C BC #### [facility] [address] [place] [address] Dr. Elise Arboleda EO # 0.1 103/ul Normal 0.0-0.7 [facility] Comment on above: Performed By: #### C BC #### [facility] [address] [place] [address] Dr. Elise Arboleda Eosinophils/100 WBC (Bld) 1.6 % Normal 0.9-7.0 [facility] Comment on above: Performed By: #### C BC #### [facility] [address] [place] [address] Dr. Elise Arboleda Erythrocyte distribution width (RBC) [Ratio] 12.3 % Normal 11.0-15.0 [facility] Comment on above: Performed By: #### C BC #### [facility] [address] [place] [address] Dr. Elise Arboleda Hematocrit (Bld) [Volume fraction] 38.4 % Normal 36.0-48.0 [facility] Comment on above: Performed By: #### C BC #### [facility] [address] [place] [address] Dr. Elise Arboleda Hemoglobin (Bld) [Mass/Vol] 12.9 g/dL Normal 12.0-16.0 [facility] Comment on above: Performed By: #### C BC #### [facility] [address] [place] [address] Dr. Elise Arboleda IG # 0.01 10e3/ul Normal 0.00-0.03 [facility] Comment on above: Performed By: #### C BC #### [facility] [address] [place] [address] Dr. Elise Arboleda IG % 0.1 % Normal 0.0-0.5 [facility] Comment on above: Performed By: #### C BC #### [facility] [address] [place] [address] Dr. Elise Arboleda LYMPH # 3.5 103/ul Normal 1.2-3.8 [facility] Comment on above: Performed By: #### C BC #### [facility] [address] [place] [address] Dr. Elise Arboleda Lymphocytes/100 WBC (Bld) 49.4 % Normal 20.5-60.0 [facility] Comment on above: Performed By: #### C BC #### [facility] [address] [place] [address] Dr. Elise Arboleda MANUAL DIFF REQ NO Normal [facility] Comment on above: Performed By: #### C BC #### [facility] [address] [place] [address] Dr. Elise Arboleda MCH (RBC) [Entitic mass] 30.6 pg Normal 26.7-34.0 [facility] Comment on above: Performed By: #### C BC #### [facility] [address] [place] [address] Dr. Elise Arboleda MCHC (RBC) [Mass/Vol] 33.6 g/dL Normal 29.9-35.2 [facility] Comment on above: Performed By: #### C BC #### [facility] [address] [place] [address] Dr. Elise Arboleda MCV (RBC) [Entitic vol] 91.2 fL Normal 81.0-99.0 [facility] Comment on above: Performed By: #### C BC #### [facility] [address] [place] [address] Dr. Elise Arboleda MONO # 0.5 103/ul Normal 0.3-0.8 [facility] Comment on above: Performed By: #### C BC #### [facility] [address] [place] [address] Dr. Elise Arboleda Monocytes/100 WBC (Bld) 6.6 % Normal 1.7-12.0 [facility] Comment on above: Performed By: #### C BC #### [facility] [address] [place] [address] Dr. Elise Arboleda NEUT # 2.9 103/ul Normal 1.4-6.5 [facility] Comment on above: Performed By: #### C BC #### [facility] [address] [place] [address] Dr. Elise Arboleda Neutrophils/100 WBC (Bld) 41.7 % Critically low 43.0-75.0 [facility] Comment on above: Performed By: #### C BC #### [facility] [address] [place] [address] Dr. Elise Arboleda Platelet mean volume (Bld) [Entitic vol] 11.8 fL Normal 9.5-13.5 [facility] Comment on above: Performed By: #### C BC #### [facility] [address] [place] [address] Dr. Elise Arboleda PLT 258 103/ul Normal 150-450 [facility] Comment on above: Performed By: #### C BC #### [facility] [address] [place] [address] Dr. Elise Arboleda RBC 4.21 106/ul Normal 4.20-5.40 [facility] Comment on above: Performed By: #### C BC #### [facility] [address] [place] [address] Dr. Elise Arboleda WBC 7.0 103/ul Normal 4.0-11.0 [facility] Comment on above: Performed By: #### C BC #### [facility] [address] [place] [address] Dr. Elise Arboleda FREE T4on 03-27-2022 Free T4 [Mass/Vol] 1.06 ng/dL Normal 0.76-1.46 [facility] Comment on above: Performed By: #### F T4 #### [facility] [address] [place] [address] Dr. Elise Arboleda GLYCOHEMOGLOBIN A1Con 2021 ADA RECOMMENDATION SEE BELOW Normal [facility] Comment on above: Result Comment: ADA RECOMMENDED LIMIT 4.0 - 6.0 ADA THERAPEUTIC TARGET < 7.0 ACTION SUGGESTED > 7.0 Performed By: #### A 1C #### [facility] [address] [address] [address] Elise Arboleda Glucose [Mass/Vol] 105 mg/dL Normal [facility] Comment on above: Performed By: #### A 1C #### [facility] [address] [place] [address] Dr. Elise Arboleda HbA1c (Bld) [Mass fraction] 5.3 % Normal 4.5-6.2 [facility] Comment on above: Performed By: #### A 1C #### [facility] [address] [place] [address] Dr. Elise Arboleda TSHon 03-27-2022 TSH 0.837 uIU/mL Normal 0.358-3.740 [facility] Comment on above: Performed By: #### T SH #### [facility] [address] [place] [address] Dr. Elise Arboleda Vital Signs Date Time Vital Sign Value Performing Clinician Faci lity 01-05-2025 16:13-0400 Body mass index (BMI) [Ratio] 26.29 kg/m2 Bertha Quinton DO Work Phone: [facility] 01-05-2025 16:13-0400 Body weight 71.67 kg Bretha Quinton DO Work Phone: [facility] 01-05-2025 16:13-0400 Diastolic blood pressure 82 mm[Hg] Bertha Quinton DO Work Phone: [facility] 01-05-2025 16:13-0400 Systolic blood pressure 130 mm[Hg] Bertha Quinton DO Work Phone: [facility] 11-10-2024 17:13-0400 Body mass index (BMI) [Ratio] 25.13 kg/m2 Rohit Floro CNM Work Phone: [facility] 11-10-2024 17:13-0400 Body weight 68.49 kg Rohit Floro CNM Work Phone: [facility] 11-10-2024 17:13-0400 Diastolic blood pressure 74 mm[Hg] Rohit Floro CNM Work Phone: [facility] 11-10-2024 17:13-0400 Systolic blood pressure 120 mm[Hg] Rohit Floro CNM Work Phone: [facility] 10-14-2024 13:42-0400 Body mass index (BMI) [Ratio] 25.13 kg/m2 Rohit Floro CNM Work Phone: [facility] 10-14-2024 13:42-0400 Body weight 68.49 kg Rohit Floro CNM Work Phone: [facility] 10-14-2024 13:42-0400 Diastolic blood pressure 80 mm[Hg] Rohit Floro CNM Work Phone: [facility] 10-14-2024 13:42-0400 Systolic blood pressure 122 mm[Hg] Rohit Floro CNM Work Phone: [facility] 09-22-2024 16:07-0400 Body mass index (BMI) [Ratio] 28.12 kg/m2 Rohit Floro CNM Work Phone: [facility] 09-22-2024 16:07-0400 Body weight 76.66 kg Rohit Floro CNM Work Phone: [facility] 09-22-2024 16:07-0400 Diastolic blood pressure 70 mm[Hg] Rohit Floro CNM Work Phone: [facility] 09-22-2024 16:07-0400 Systolic blood pressure 110 mm[Hg] Rohit Floro CNM Work Phone: [facility] 09-08-2024 17:31-0400 Body mass index (BMI) [Ratio] 28.62 kg/m2 Rohit Floro CNM Work Phone: [facility] 09-08-2024 17:31-0400 Body weight 78.02 kg Rohit Floro CNM Work Phone: [facility] 09-08-2024 17:31-0400 Diastolic blood pressure 80 mm[Hg] Rohit Floro CNM Work Phone: [facility] 09-08-2024 17:31-0400 Systolic blood pressure 122 mm[Hg] Rohit Floro CNM Work Phone: [facility] 08-20-2024 16:36-0400 Body mass index (BMI) [Ratio] 27.79 kg/m2 Rohit Floro CNM Work Phone: [facility] 08-20-2024 16:36-0400 Body weight 75.75 kg Rohit Floro CNM Work Phone: [facility] 08-20-2024 16:36-0400 Diastolic blood pressure 60 mm[Hg] Rohit Floro CNM Work Phone: [facility] 08-20-2024 16:36-0400 Systolic blood pressure 110 mm[Hg] Rohit Floro CNM Work Phone: [facility] 05-22-2024 09:21-0500 Body mass index (BMI) [Ratio] 27.12 kg/m2 Rohit Floro CNM Work Phone: [facility] 05-22-2024 09:21-0500 Body weight 73.94 kg Rohit Floro CNM Work Phone: [facility] 05-22-2024 09:21-0500 Diastolic blood pressure 78 mm[Hg] Rohit Floro CNM Work Phone: [facility] 05-22-2024 09:21-0500 Systolic blood pressure 118 mm[Hg] Rohit Floro CNM Work Phone: [facility] 04-24-2024 09:43-0500 Body mass index (BMI) [Ratio] 26.96 kg/m2 Rohit Floro CNM Work Phone: [facility] 04-24-2024 09:43-0500 Body weight 73.48 kg Rohit Floro CNM Work Phone: [facility] 04-24-2024 09:43-0500 Diastolic blood pressure 80 mm[Hg] Rohit Floro CNM Work Phone: [facility] 04-24-2024 09:43-0500 Systolic blood pressure 120 mm[Hg] Rohit Bethea CNM Work Phone: [facility] 03-20-2024 15:41-0500 Body mass index (BMI) [Ratio] 27.12 kg/m2 Rohit Bethea CN Work Phone: [facility] 03-20-2024 15:41-0500 Body weight 73.94 kg Rohit Bethea CN Work Phone: [facility] Encounters Encounter Date Encounter Type Care Provider Facility Start: 01-05-2025 End: 01-05-2025 ambulatory BERTHA QUINTON Not Available Start: 01-05-2025 End: 01-05-2025 Office outpatient visit 10 minutes Bertha Quinton DO Work Phone: [facility] Comment on above: PCOS (polycystic ova waleska syndrome) (Primary Dx); Lactating, suppressed ([facility]) Start: 01-05-2025 End: 01-05-2025 Bamboo flowsheet Bertha Quinton DO Work Phone: [facility] Start: 01-05-2025 End: 01-05-2025 [facility] Result Encounter Nichole Celis NP Work Phone: [facility] Unsolicited Start: 01-05-2025 End: 01-05-2025 [facility] Result Encounter Nichole Celis CONTRACT ANALYST Work Phone: [facility] Unsolicited Start: 11-10-2024 End: 11-10-2024 ambulatory ROHIT L FLORO Not Available Start: 11-10-2024 End: 11-10-2024 Office outpatient visit 15 minutes Rohit Adry Blancoo CNM Work Phone: [facility] Comment on above: examinati on following delivery ([facility]) (Primary Dx) Start: 10-14-2024 End: 10-14-2024 ambulatory [...] minutes Rohit L Floro CNM Work Phone: [facility] Comment on above: Screening for diabet es mellitus (DM) (Primary Dx); Encounter for care of first , third trimester ([facility]) Start: 08-20-2024 End: 08-20-2024 Bamboo flowsheet Rohit [...] al care of first , second trimester ([facility]) (Primary Dx); Nausea/vomiting in ([facility]) Start: 05-22-2024 End: 05-22-2024 ambulatory ROHIT L [...] 03-20-2024 Office outpatient visit 15 minutes Rohit Adry Blancoo CNM Work Phone: [facility] Comment [...] DONG Facility: Start: 05-10-2022 End: 05-11-[address] ANTONIO LISTED REQUEST Facility: Start: 03-27-2022 End: 03-28-[address] BERTHA ALCANTARA . Facility: Procedures Date Procedure Procedure Detail Performing Clinician Start: 01-05-2025 ALL CBC WITH AUTO DIFF Nichole Celis CONTRACT ANALYST Work Phone: Start: 01-05-2025 ALL THYROID STIM HORMONE Nichole Celis CONTRACT ANALYST Work Phone: Start: 01-05-2025 MLR HEMOGLOBIN A1C Bhaskar Celis CONTRACT ANALYST Work Phone: Start: 01-05-2025 [facility] PREG QUANT HCG Bhaskar Celis CONTRACT ANALYST Work Phone: Start: 2024 ALL CBC WITH AUTO DIFF Bertha Quinton DO Work Phone: Start: 10-06-2024 [facility] CBC WITH PLATEL ET NO DIFFERENTIAL Rohit L Floro CNM Work Phone: Start: 02-28-2023 Microscopic observat ion [Identifier] in Cervix by Cyto stain Bertha Alcantara DO Work Phone: Start: 07-11-2022 Cytp cerv/vag auto t hin layer prep mnl screen Bertha Alcantara DO Work Phone: Plan of Treatment Date Care Activity Detail Author Start: 07-11-2025 Screening for malign ant neoplasm of cervix [facility] Start: 01-12-2025 Influenza vaccination [facility] Start: 01-05-2025 End: 01-05-2026 Cobalamin (Vitamin B12) [Mass/volume] in Serum or Plasma Vitamin B12 Lab Routine Lactating, suppressed ([facility]) Expected: 01/05/2025 (Approximate), Expires: 01/05/2026 [facility] Comment on above: Expected: 01/05/2025 (Approximate), Expires: 01/05/2026 Start: 01-05-2025 End: 01-05-2026 DHEA DHEA Lab Routine PCOS (polycystic ovarian syndrome) Expected: 01/05/2025 (Approximate), Expires: 01/05/2026 [facility] Healthcare Comment on above: Expected: 01/05/2025 (Approximate), Expires: 01/05/2026 Start: 11-10-2024 End: 11-10-2024 ambulatory 11/10/2024 5:00 PM EDT Visit [facility] [address] [place] [id number] Rohit Bethea CN [address] [place], [place] [id number] [facility] Start: 2024 End: 2024 Patient encounter procedure 2024 9:30 AM EDT Routine [facility] [address] [place] [id number] Rohit Bethea, CN [address] [place] [address] [facility] Start: 09-29-2024 End: 09-29-2024 Patient encounter procedure 09/29/2024 4:30 PM EDT Routine [facility] [address] [facility] [place] [address] BelladanaRohit, CNM [address] [facility] [place] [address] [facility] Start: 09-22-2024 End: 09-22-2024 Patient encounter procedure 09/22/2024 4:00 PM EDT Routine [facility] [address] [facility] [place] [address] BelladanaRohit, CNM [address] [facility] [place] [address] [facility] Start: 09-15-2024 End: 09-15-2024 Patient encounter procedure 09/15/2024 5:15 PM EDT Routine [facility] [address] [facility] [place] [id number] BelladanaRohit, CN [address] [facility] [place] [address] [facility] Start: 09-08-2024 End: 09-08-2025 [...] AM EST Routine [facility] [address] [place] [address] Rohit Bethea CNM [address] [place] [address] [facility] Start: 03-24-2024 End: 03-24-2025 ABO/Rh ABO/Rh Lab Routine Encounter for supervision of normal first , first trimester Expected: 03/24/2024 (Approximate), Expires: 03/24/2025 [facility] Comment on above: Expected: 03/24/2024 (Approximate), Expires: 03/24/2025 Start: 03-24-2024 End: 03-24-2025 Antibody screen Antibody screen Lab Routine Encounter for supervision of normal first , first trimester Expected: 03/24/2024 (Approximate), Expires: 03/24/2025 [facility] Comment on above: Expected: 03/24/2024 [...] first trimester Expected: 03/24/2024 (Approximate), Expires: 03/24/2025 [facility] Comment on above: Expected: 03/24/2024 (Approximate), Expires: 03/24/2025 Start: 03-24-2024 End: 03-24-2025 DRUG TOX MONITORIGN 6 W/ CONF,URINE DRUG TOX MONITORIGN 6 W/ CONF,URINE Lab Routine Encounter for supervision of normal first , first trimester Expected: 03/24/2024 (Approximate), Expires: 03/24/2025 [facility] Comment on above: Expected: 03/24/2024 (Approximate), Expires: 03/24/2025 Start: 03-24-2024 End: 03-24-2025 Hemoglobin A1c/Hemoglobin.total in Blood Hemoglobin A1c Lab Routine Encounter for supervision of normal first , first trimester Expected: 03/24/2024 (Approximate), Expires: 03/24/2025 [facility] Comment on above: Expected: 03/24/2024 (Approximate), Expires: 03/24/2025 Start: 03-24-2024 End: 03-24-2025 Hepatitis B virus surface Ag [Presence] in Serum or Plasma by Immunoassay Hepatitis B surface antigen Lab Routine Encounter for supervision of normal first , first trimester Expected: 03/24/2024 (Approximate), Expires: 03/24/2025 [facility] Work Phone: Comment on above: Expected: 03/24/2024 (Approximate), Expires: 03/24/2025 Start: 03-24-2024 End: 03-24-2025 Hepatitis C virus Ab [Presence] in Serum or Plasma by Immunoassay Hepatitis C antibody Lab Routine Encounter for supervision of normal first , first trimester Expected: 03/24/2024 (Approximate), Expires: 03/24/2025 [facility] Comment on above: Expected: 03/24/2024 (Approximate), Expires: 03/24/2025 Start: 03-24-2024 End: 03-24-2025 HIV-1/HIV-2 antigen/antibody combination immunoassay HIV-1 and HIV-2 antibodies Lab Routine Encounter for supervision of normal first , first trimester Expected: 03/24/2024 (Approximate), Expires: 03/24/2025 [facility] Comment on above: Expected: 03/24/2024 (Approximate), Expires: 03/24/2025 Start: 03-24-2024 End: 03-24-2025 Neisseria gonorrhoeae DNA [Presence] in Cervical mucus by STANLEY with probe detection C. trachomatis / N. gonorrhoeae, DNA probe Pathology and Cytology Routine Encounter for supervision of normal first , first trimester Expected: 03/24/2024 (Approximate), Expires: 03/24/2025 [facility] Comment on above: Expected: 03/24/2024 (Approximate), Expires: 03/24/2025 Start: 03-24-2024 End: 03-24-2025 Reagin Ab [Presence] in Serum by RPR RPR Lab Routine Encounter for supervision of normal first , first trimester Expected: 03/24/2024 (Approximate), Expires: 03/24/2025 [facility] Comment on above: Expected: 03/24/2024 (Approximate), Expires: 03/24/2025 Start: 03-24-2024 End: 03-24-2025 Rubella antibody, IgG Rubella antibody, IgG Lab Routine Encounter for supervision of normal first , first trimester Expected: 03/24/2024 (Approximate), Expires: 03/24/2025 [facility] Comment on above: Expected: 03/24/2024 (Approximate), Expires: 03/24/2025 Start: 03-24-2024 End: 03-24-2025 TSH W/REFLEX TO FT4 TSH W/REFLEX TO FT4 Lab Routine Encounter for supervision of normal first , first trimester Expected: 03/24/2024 (Approximate), Expires: 03/24/2025 [facility] Comment on above: Expected: 03/24/2024 (Approximate), Expires: 03/24/2025 Start: 03-24-2024 End: 03-24-2025 URINALYSIS MICROSCOPIC URINALYSIS MICROSCOPIC Lab Routine Encounter for supervision of normal first , first trimester Expected: 03/24/2024 (Approximate), Expires: 03/24/2025 [facility] Comment on above: Expected: 03/24/2024 (Approximate), Expires: 03/24/2025 Start: 03-20-2024 End: 03-20-2024 Professional / ancillary services management 03/20/2024 4:15 PM EST Ancillary Procedure [facility] [address] [place] [address] [facility] Start: 01-13-2024 Influenza vaccination Influenza Vacc ine (#1) [facility] Start: 07-16-2023 End: 07-16-2023 Patient encounter procedure 07/16/2023 10:00 AM EST Procedure Visit [facility] [address] [place] [address] Bertha Alcantara, [address] [place] [address] [facility] Start: 10-06-2021 Screening for malign ant neoplasm of cervix [facility] Start: 10-06-2012 Screening for malign ant neoplasm of cervix Pap Smear [facility] CBC W Auto Different ial panel - Blood CBC and differential Lab Routine PCOS (polycystic ovarian syndrome) Ordered: 01/05/2025 [facility] Comment on above: Ordered: 01/05/2025 DHEA-sulfate DHEA-sulfate Lab Routine PCOS (polycystic ovarian syndrome) Ordered: 01/05/2025 [facility] Comment on above: Ordered: 01/05/2025 Follicle stimulating hormone Follicle stimulating hormone Lab Routine PCOS (polycystic ovarian syndrome) Ordered: 01/05/2025 [facility] Comment on above: Ordered: 01/05/2025 hCG, quantitative, hCG, quantitative, Lab Routine PCOS (polycystic ovarian syndrome) Ordered: 01/05/2025 [facility] Work Phone: Comment on above: Ordered: 01/05/2025 Hemoglobin A1c/Hemoglobin.total in Blood Hemoglobin A1c Lab Routine Lactating, suppressed ([facility]) Ordered: 01/05/2025 [facility] Comment on above: Ordered: 01/05/2025 Luteinizing hormone Luteinizing hormone Lab Routine PCOS (polycystic ovarian syndrome) Ordered: 01/05/2025 [facility] Comment on above: Ordered: 01/05/2025 Thyrotropin [Units/volume] in Serum or Plasma TSH Lab Routine PCOS (polycystic ovarian syndrome) Ordered: 01/05/2025 [facility] Comment on above: Ordered: 01/05/2025 Thyroxine (T4) free [Mass/volume] in Serum or Plasma T4, free Lab Routine PCOS (polycystic ovarian syndrome) Ordered: 01/05/2025 [facility] Comment on above: Ordered: 01/05/2025 Vitamin D 1,25 dihydroxy Vitamin D 1,25 dihydroxy Lab Routine Lactating, suppressed ([facility]) Ordered: 01/05/2025 [facility] Comment on above: Ordered: 01/05/2025 Payers Date Payer Category Payer Medicaid [id number] 2024 Medicaid [id number] 1991 Unknown [id number] 2.16.84 [id number] 1991 Unknown [id number] 2.16.84 0.1.300116.3.579.2.593 1991 Unknown [id number] 2.16.84 0.1.587832.3.579.2.593 1991 Unknown [id number] 2.16.8 [id number] 1991 Unknown [id number] 2.16.8 40.1.990012.3.579.2.1259 1991 Unknown [id number] 2.16.8 40.1.567623.3.579.2.1259 1991 Unknown [id number] 2.16.84 0.1.171000.3.579.2.9 1991 Unknown [id number] 2.16.84 0.1.340845.3.579.2.1259 1991 Unknown [id number] 2.16.84 0.1.548352.3.579.2.1259 1991 Unknown [id number] 2.16.84 0.1.803587.3.579.2.1259 1991 Unknown [id number] 2.16.84 0.1.803098.3.579.2.1258 1991 Unknown [id number] 2.16.84 0.1.210081.3.579.2.9 1991 Unknown [id number] 2.16.84 0.1.155210.3.579.2.1259 1959 Self-pay 1959 Unknown [id number] 1959 Unknown [id number] Unknown [id number] 2.16.84 0.1.001590.3.579.2.593 Social History Date Type Detail Facility Tobacco smoking stat [facility] Tobacco smoking consumption unknown [facility] Start: 1990 Sex Assigned At Not on file [facility] Start: 03-20-2024 End: 11-10-2024 Gender identity Not on file [facility] Start: 03-20-2024 Tobacco smoking stat [facility] Never smoked tobacco [facility] Start: 03-20-2024 Tobacco use and exposure Smokeless t obacco non-user [facility] Start: 03-20-2024 End: 11-10-2024 Alcoholic beverage intake Ex-drinker (finding) [facility] Start: 03-20-2024 End: 11-10-2024 History of Social function [facility] Start: 01-13-2024 [facility] The thought of arleen lim myself has occurred to me Never [facility] Medical Equipment Procedure Code Equipment Code Equipment Origin al Text Equipment Identifier Dates 1 each by In Vit ro route in the morning and 1 each at noon and 1 each in the evening and 1 each before bedtime. Take with meals. Please fill whatever insurance will cover with lancets and test strips. [id number] Start: 08-27-2024 End: 11-10-2024 Clinical Notes 03-20-2024 to 01-05-2025 Bertha Alcantara DO - 01/05/2025 3:20 PM EDTValeleonie Bethea CNM - 11/10/2024 5:00 PM EDTValeleonie Bethea CNM - 10/14/2024 1:30 PM EDTValeleonie Bethea CNM - 09/22/2024 4:00 PM EDT Note Date & Type Note Facility 01-05-2025 History of Presen t illness Narrative Reason for Appointment: Patient ID: Loretta Tesfaye is a 34 y.o. female who presents for Follow-up Patient presents today for Acute Visit. MEDICATIONS Current Outpatient Medications Medication Instructions ibuprofen 400 mg, Every 8 hours PRN MV-Min-Fe Fum-FA-DHA ( 1 PO) Oral ALLERGIES No Known Allergies PROBLEMS Active Ambulatory Problems Diagnosis Date Noted Lactating, suppressed ([facility]) 01/06/2025 Resolved Ambulatory Problems Diagnosis Date Noted No Resolved Ambulatory Problems Past Medical History: Diagnosis Date Fainting spell Heart palpitations Swelling of both hands HISTORY PAST MEDICAL HISTORY SOCIAL HISTORY Past Medical History: Diagnosis Date Fainting spell as a child Heart palpitations Irregular Swelling of both hands Social History Tobacco Use Smoking status: Never Smokeless tobacco: Never Substance Use Topics Alcohol use: Not Currently Drug use: Never FAMILY HISTORY Family History Problem Relation Name Age of Onset Heart failure Father Stroke Father CVA ( cerebral infarction) Diabetes Father Lupus Paternal Grandmother Stroke Paternal Grandfather Other (Deviated septum) Sibling SURGICAL HISTORY Past Surgical History: Procedure Laterality Date APPENDECTOMY SECTION, LOW TRANSVERSE 10/06/2024 TONSILLECTOMY REVIEW OF SYSTEMS Review of Systems: Review of Systems All other systems reviewed and are negative. OBJECTIVE Objective: Physical Exam Constitutional: Appearance: Normal appearance. She is well-developed. Cardiovascular: Rate and Rhythm: Normal rate and regular rhythm. Pulmonary: Effort: Pulmonary effort is normal. Breath sounds: Normal breath sounds. Abdominal: General: Bowel sounds are normal. There is no distension. Palpations: Abdomen is soft. Tenderness: There is no abdominal tenderness. There is no guarding or rebound. Musculoskeletal: General: No swelling. Normal range of motion. Right lower leg: No edema. Left lower leg: No edema. Neurological: Mental Status: She is alert and oriented to person, place, and time. Skin: General: Skin is warm and dry. Psychiatric: Mood and Affect: Mood normal. Behavior: Behavior normal. Vitals and nursing note reviewed. Exam conducted with a export clerk present. Vitals: Estimated body mass index is 26.29 kg/m as calculated from the following: Height as of 07/11/22: 5' 5 . Weight as of this encounter: 158 lb. BP: 130/82 No LMP recorded. ASSESSMENT & PLAN Discussed hydration and electrolytes, will obtain labs, discussed with patient in detail Documented by Nichole Celis NP on behalf of: Bertha Alcantara DO documented in this encounter [facility] 11-10-2024 History of Presen t illness Narrative [...] weeks. normal exam documented in this encounter [facility] 10-14-2024 History of Presen t illness Narrative [...] encounter. normal exam documented in this encounter [facility] 09-22-2024 History of Presen t illness Narrative [...] a routine visit. documented in this encounter [facility] 09-08-2024 History of Presen t illness Narrative [...] a routine visit. documented in this encounter [facility] 08-20-2024 History of Presen t illness Narrative [...] for care of first , third trimester ([facility]) Continue vitamin. Labs reviewed. GBS taken. Expected mode of delivery Follow up in 1 week for a routine visit. documented in this encounter [facility] 05-22-2024 History of Presen t illness Narrative [...] for care of first , second trimester ([facility]) Nausea/vomiting in ([facility]) Continue vitamin. Labs reviewed. Rhogam GTT . Follow up in 4 weeks for a routine visit. documented in this encounter [facility] 04-24-2024 History of Presen t illness Narrative [...] a routine visit. documented in this encounter [facility] 04-22-2024 Telephone encounter Note Form atting of this note might be different from the original. Pt has a [facility] appt at 9:30 and wanted to know if you could give her a proof of letter. She misplaced the one that [facility] gave her. But she is going to also call them to see if they kept a copy. [facility] 04-22-2024 Miscellaneous Notes Formattin g of this note might be different from the original. Pt has a [facility] appt at 9:30 and wanted to know if you could give her a proof of letter. She misplaced the one that [facility] gave her. But she is going to also call them to see if they kept a copy. documented in this encounter [facility] 04-02-2024 Telephone encounter Note Form atting [...] She found the bleeding when she wiped. [phone] [facility] 04-02-2024 Miscellaneous Notes Formattin g of [...] She found the bleeding when she wiped. [phone] documented in this encounter [facility] 03-24-2024 Note Addended by: LINDA QUINONES on: 03/24/2024 11:54 AM Modules accepted: Orders [facility] 03-24-2024 Miscellaneous Notes Addended by: LINDA [...] pt. Thank you. documented in this encounter [facility] 03-24-2024 Note Addended by: LINDA QUINONES on: 03/24/2024 11:51 AM Modules accepted: Orders [facility] 03-24-2024 Telephone encounter Note Form atting of this note might be different from the original. Labs ordered [facility] 03-24-2024 Telephone encounter Note Form atting [...] still nauseated. Please advise pt. Thank you. [facility] 03-20-2024 History of Presen t illness Narrative Subjective Loretta Tesfaye is a 33 y.o. at 11w4d with a working estimated date of delivery of 10/05/2024, by Last Menstrual Period who presents for an initial visit. This is planned. 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 PVU and all questions answered. We did discuss place of delivery. Patient should plan to go to [facility] for all services unless an emergency and they need to go to the closest ER. We can make other arrangements possibly if patient would like to deliver at another facility but I did explain I am now at [place] 100% of the time and would like [...] for care of first , second trimester ([facility])- Primary Nausea/vomiting in ([facility]) Unspecified vomiting of , unspecified as to episode of care documented in this encounter [facility] Diagnosis examination following delivery- Primary documented in this encounter [facility]* Diagnosis examination following delivery ([facility])- Primary documented in this encounter [facility]* Diagnosis Screening for diabetes mellitus (DM)- Primary Screening for diabetes mellitus Encounter for care of first , third trimester ([facility]) documented in this encounter [facility]* Diagnosis PCOS (polycystic ovarian syndrome)- Primary Polycystic ovaries Lactating, suppressed ([facility]) Suppressed , unspecified as to episode of care documented in this encounter [facility] Summary Purpose Family History No Family History Records FoundNo Family History Records Found Advance Directives No Advanced Directives Records FoundNo Advanced Directives Records Found Additional Source Comments INFORMATION SOURCE (unrecogn ized section and content) DATE CREATED AUTHOR 07/19/2022 [facility] DATE CREATED AUTHOR 'S ORGANIZ ATION 01/06/2025 [facility] EPIC Care Teams (unrecognized sec tion and content) Electromedical Equipment Repairer Relationship Specialty Start Date End Date Unallocated, [place] [address] PCP - General Family Medicine 04/24/24 Electromedical Equipment Repairer Relationship Specialty Start Date End Date Unallocated, [place] [address] PCP - General Family Medicine 04/24/24 Electromedical Equipment Repairer Relationship Specialty Start Date End Date Unallocated, MD Jailyn Brown [facility] [place] [address] PCP - General Family Medicine 04/24/24 Electromedical Equipment Repairer Relationship Specialty Start Date End Date Unallocated, MD Jailyn Brown [facility] [place] [address] PCP - General Family Medicine 04/24/24 Electromedical Equipment Repairer Relationship Specialty Start Date End Date Unallocated, Tres Felipe MD [address] [place] [address] PCP - General Family Medicine 04/24/24 Electromedical Equipment Repairer Relationship Specialty Start Date End Date Unallocated, Tres Felipe MD [facility] [place] [address] PCP - General Family Medicine 04/24/24 Electromedical Equipment Repairer Relationship Specialty Start Date End Date Unallocated, Tres Felipe [place] [facility] [place] [address] PCP - General [facility] Medicine 04/24/24 Electromedical Equipment Repairer Relationship Specialty Start Date End Date Unallocated, Tres Felipe MD [facility] [place] [address] PCP - General [facility] Medicine 04/24/24 Electromedical Equipment Repairer Relationship Specialty Start Date End Date Unallocated, Tres Felipe MD [facility] [address] [facility] [place] [address] PCP - General Family Medicine 04/24/24 Electromedical Equipment Repairer Relationship Specialty Start Date End Date Unallocated, Tres Felipe MD [facility] [address] [facility] [place] [address] PCP - General Family Medicine 04/24/24 Electromedical Equipment Repairer Relationship Specialty Start Date End Date Unallocated, Tres Felipe MD [facility] [address] [facility] [place] [address] PCP - General Family Medicine 04/24/24 Reason for Visit (unrecogniz ed section and content) Reason Comments Care Reason Comments Follow-up FOR RECORDS PERTAINING TO PATIENTS WHO ARE [...] BE BASED ON THE PRIMARY CLINICAL RECORDS. [facility] [facility]. provides no warranty or guarantee of the accuracy or completeness of information in this document.
--- OUTSIDE RECORDS SUMMARY | 2025-01-27 08:12 | XMS_ITS | Clinical Summary ---
Author Organization [facility] Address [address] [place] [address] Care Team Providers Care Toll Line Mechanic Name Role Phone Unallocated, Noms Provider Primary Care Provi helena Allergies No known active allergies Medications MV-Min-Fe Fum-FA-DHA ( 1 PO) Take by mouth Active ibuprofen 400 MG tablet Take 400 mg by mouth every 8 (eight) hours if needed for moderate pain 10/08/2024 Active Active Problems Problem Noted Date Diagnosed Date Lactating, suppressed ([facility]) 01/06/2025 Encounters Date Type Department Care Team Description 01/05/2025 3:20 PM EDT Office Visit [facility] [address] [place] [address] Eliud Alcantara DO PCOS (polycystic ovarian syndrome) (Primary Dx); Lactating, suppressed ([facility]) 01/05/2025 Clinisync Result Encounter [facility] External Department Unsolicited Nichole Celis NP 01/05/2025 Bamboo flowsheet NOMIsiah [facility] [address] [address] Eliud Alcantara DO 11/10/2024 5:00 PM EDT Visit JESSE WREN [address] [place] [address] Kelin Bethea CNM examination following delivery ([facility]) (Primary Dx) from Last 3 Months Family History Medical [...] drink = 0.6 oz pur e alcohol) Callaway Depression Scale Answer Date Recorded Callaway Depression Scale Total 8 11/10/2024 The thought [...] Procedure Name Priority Date/Time Associated Diagnosis Comments CALCITRIOL(1,25 DI-OH VIT D) Routine 01/05/2025 4:57 PM EDT ALL FOLLICLE STIMULATING HORMONE Routine 01/05/2025 4:57 PM EDT ALL LUTEINIZING HORMONE Routine 01/05/2025 4:57 PM EDT ALL DHEA SULFATE Routine 01/05/2025 4:57 PM EDT ALL THYROXINE (T4) FREE Routine 01/05/2025 4:57 PM EDT MLR HEMOGLOBIN A1C Routine 01/05/2025 4: 57 PM EDT ALL CBC WITH AUTO DIFF Routine 01/05/2025 4:57 PM EDT TBH PREG QUANT HCG Routine 01/05/2025 4: 57 PM EDT ALL THYROID STIM HORMONE Routine 01/05/2025 4:57 PM EDT PAP SMEAR Routine 07/11/2022 12:00 AM EST from Last 3 Months or Most Recently Relevant to Health Maintenance Results * [facility] PREG QUANT HCG (01/05/2025 4:57 PM EDT) HCG QUANTITATIVE <1 mIU/mL TBH Comment: 5-50 0.2-1 WEEK 50-500 1-2 WEEKS 100-5,000 2-3 WEEKS 500-10,000 3-4 WEEKS 1,000-50,000 4-5 WEEKS 10,000-100,000 5-6 WEEKS 15,000-200,000 6-8 WEEKS 10,000-100,000 2-3 MONTHS 01/05/2025 4:57 PM EDT 01/05/2025 5:00 PM EDT Narrative CLINISYNC - 01/05/2025 6:27 PM EDT Nichole Celis NP CLINIS[facility] Final Result [facility] * CALCITRIOL(1,25 DI-OH VIT D) (01/05/2025 4:57 PM EDT) CALCITRIOL(1,25 DI-OH VIT D) 50.7 24.8 - 81.5 pg/mL TBH Comment: Performed at: [address] [id number] Vp Compliance: Aniket Alcantar MD, Phone: [phone] 01/05/2025 4:5 7 PM EDT 01/05/2025 5:00 PM EDT Narrative CLINISYNC - 01/09/2025 1:08 PM EDT us Nichole Celis NP LAB BLOOD ORDERABLES Final Re sult Performing Organization Address [facility] Co de Phone Number [facility] * MLR HEMOGLOBIN A1C (01/05/2025 4:57 PM EDT) GLYCOHEMOGLOBIN A1C 5.1 4.5 - 6.2 % [facility] Comment: ADA RECOMMENDED LIMIT 4.0 - 6.0 ADA THERAPEUTIC TARGET < 7.0 ACTION SUGGESTED > 7.0 ESTIMATED AVERAGE GLUCOSE 100 mg/dL TB 01/05/2025 4:57 PM EDT 01/05/2025 5:00 PM EDT Narrative CLINISYNC - 01/05/2025 6:58 PM EDT us Nichole Celis NP CLINISYNC Final Result Performing Organization Address [facility] Phone Number [facility] * ALL THYROXINE (T4) FREE (01/05/2025 4:57 PM EDT) FREE T4 1.06 0.76 - 1.46 ng/dL TB 01/05/2025 4:57 PM EDT 01/05/2025 5:00 PM EDT Narrative CLINISYNC - 01/05/2025 7:44 PM EDT us Nichole Celis NP CLINISYNC Final Result Performing Organization Address [facility] Co de Phone Number [facility] * ALL THYROID STIM HORMONE (01/05/2025 4:57 PM EDT) THYROID STIMULATING HORMONE 1.305 0.358 - 3.740 uIU/mL TB 01/05/2025 4:57 PM EDT 01/05/2025 5:00 PM EDT Narrative CLINISYNC - 01/05/2025 6:27 PM EDT us Nichole Celis NP CLINISYNC Final Result Performing Organization Address [facility] Co de Phone Number [facility] * ALL LUTEINIZING HORMONE (01/05/2025 4:57 PM EDT) LUTEINIZING HORMONE(LH) 5.7 . mIU/mL TBH Comment: Adult Female Range Follicular phase 2.4 - 12.6 Ovulation phase 14.0 - 95.6 Luteal phase 1.0 - 11.4 Postmenopausal 7.7 - 58.5 01/05/2025 4:57 PM EDT 01/05/2025 5:00 PM EDT Narrative CLINISYNC - 01/09/2025 1:08 PM EDT Nichole Celis NP CLINISYJOSE Final Result Performing Organization Address [facility] Co de Phone Number [facility] * ALL FOLLICLE STIMULATING HORMONE (01/05/2025 4:57 PM EDT) FSH 7.1 . mIU/mL TBH Comment: Adult Female Range Follicular phase 3.5 - 12.5 Ovulation phase 4.7 - 21.5 Luteal phase 1.7 - 7.7 Postmenopausal 25.8 - 134.8 Performed at: [address] [id number] Vp Compliance: Ender De Luna PhD, Phone: [phone] 01/05/2025 4:57 PM EDT 01/05/2025 5:00 PM EDT Narrative CLINISYNC - 01/09/2025 1:08 PM EDT Nichole BHATISYNC Final Result Performing Organization Address City/[facility] Co de Phone Number [facility] * ALL DHEA SULFATE (01/05/2025 4:57 PM EDT) DHEA-SULFATE 137.0 84.8 - 378.0 ug/dL TBH 01/05/2025 4:57 PM EDT 01/05/2025 5:00 PM EDT Narrative CLINISYNC - 01/09/2025 1:08 PM EDT us Nichole Vickerly TAMMIE CLINISYJOSE Final Result [facility] * (ABNORMAL) ALL CBC WITH AUTO DIFF (01/05/2025 4:57 PM EDT) [facility] TB WBC 8.2 4.0 - 11.0 10 3/uL TBH TBH RBC 4.21 4.20 - 5.40 10 6/uL TBH TBH HGB 11.7(L) 12.0 - 16.0 g/dL TBH TBH HCT 36.1 36.0 - 48.0 % TBH TBH MCV 85.7 81.0 - 99.0 fL TBH TBH MCH 27.8 26.7 - 34.0 pg TBH TBH MCHC 32.4 29.9 - 35.2 g/dL TBH TBH RDW 14.4 11.0 - 15.0 % TBH TBH PLT 307 150 - 450 10 3/uL TBH TBH MPV 12.6 9.5 - 13.5 fL TBH NEUTROPHILS PERCENT AUTO 39.1(L) 43.0 - 75.0 % TBH LYMPHOCYTES PERCENT AUTO 51.5 20.5 - 60.0 % TBH MONOCYTES PERCENT AUTO 7.0 1.7 - 12.0 % TBH TBH EO % 1.8 0.9 - 7.0 % TBH BASOPHILS PERCENT AUTO 0.5 0.2 - 2.0 % TBH IMMATURE GRANULOCYTES PCT AUTO 0.1 0.0 - 0.5 % TBH NEUTROPHILS ABSOLUTE AUTO 3.2 1.4 - 6.5 10 3/uL TBH LYMPHOCYTES ABSOLUTE AUTO 4.2(H) 1.2 - 3.8 10 3/uL TBH MONOCYTES ABSOLUTE AUTO 0.6 0.3 - 0.8 10 3/uL TBH TBH EO # 0.2 0.0 - 0.7 10 3/uL TBH BASOPHILS ABSOLUTE AUTO 0.0 0.0 - 0.1 10 3/uL TBH IMMATURE GRANULOCYTES ABS AUTO 0.01 0.00 - 0.03 10 3/uL TBH 01/05/2025 4:57 PM EDT 01/05/2025 5:00 PM EDT Narrative CLINISYNC - 01/05/2025 6:36 PM EDT us Nichole Celis DIGITAL ACCOUNT SUPERVISOR CLINISYNC Final Result CLINISYNC [facility] * Pap Smear (07/11/2022 12:00 AM EST) Swab Cervical swab / Unknown us Eliud Alcantara DO LAB CYTOLOGY ORDERABLES Final Re sult EXTERNAL LAB from Last 3 Months or Most Recently Relevant to Health Maintenance Insurance [address] [address] [employer] [place] Care Teams Toll Line Mechanic Relationship Specialty Start Date End Date Unallocated, Noms Provider, [address] [place], [place] [phone] PCP - General Family Medicine 04/24/24
--- OUTSIDE RECORDS SUMMARY | 2025-01-27 08:12 | XMS_ITS | Encounter Summary ---
Author Organization [facility] Address [address] [place] [address] Care Team Providers Care Web Site Project Manager Name Role Phone Unallocated, Noms Provider Primary Care Provi helena Encounter Details Date Type Department Care Team (Late st Contact Info) Description 04/02/2024 Clinisync Result Encounter [facility] External Department Unsolicited Rohit Bethea, CNM [address] [place], [place] [phone] Social History Tobacco Use Types Packs/Day Years [...] EST Narrative 04/02/2024 2:45 PM EST The [address] [address] Ultrasound Report Signed Patient: EVAN TESFAYE MR#: [id number] : 1990 Acct:[id number] Age/Sex: 33 / F ADM Date: 04/02/24 Loc: US Attending Dr: ROHIT BETHEA APRN, CNM Ordering Physician: ROHIT BETHEA APRN, CNM Date of Service: 04/02/24 Procedure(s): US OB <= 14 weeks fetus Accession Number(s): [id number] cc: ROHIT BETHEA APRN, CNM; Physician,Non-Staff [place] The [address] [address] Patient Name: EVAN TESFAYE MRN: [facility]:[id number] date: 1990 Sex: F Assigned Patient Location: US Current Patient Location: US Accession/Order Number: [id number] Exam Date: 04/02/2024 13:27 Report Date: 04/02/2024 [...] Signed By: 04/02/24 1445 DD/ 144 TD/TT: End Stapler: Procedure Note Radiology, Radiologist, MD - 04/02/2024 [place] [address] Ultrasound Report Signed Patient: EVAN TESFAYE MMR#: [id number] : 1990Acct:[id number] Age/Sex: 33 / FADM Date: 04/02/24 Loc: US Attending Dr: ROHIT BETHEA APRN, CNM Ordering Physician: ROHIT BETHEA APRN, CNM Date of Service: 04/02/24 Procedure(s): US OB <= 14 weeks fetus Accession Number(s): [id number] cc: ROHIT BETHEA APRN, CNM; Physician,Non-Staff Mary Jo The [place] [address] Patient Name: EVAN TESFAYE MRN: [facility]:[id number] date: 1990 Sex: F Assigned Patient Location: US Current Patient Location: US Accession/Order Number: [id number] Exam Date: 04/02/2024 13:27 Report Date: 04/02/2024 [...] Bhandari M.D. Signed By:04/02/241444 DD/ 42 TD/TT: End Stapler: Rohit Bethea CNM CLINISYNC IMAGING Final Resu lt documented in this encounter Visit Diagnoses Not on filedocumented in this encounter Care Teams Web Site Project Manager Relationship Specialty Start Date End Date Unallocated, Noms Provider, MD Jailyn [place], [place] [phone] PCP - General Family Medicine 04/24/24 documented as of this encounter
--- NOTE | 2025-01-27 16:42 | PC.NURSE ---
Loretta, her mom and 4 mo baby boy arrive for follow up support. Loretta continues to try to increase milk supply with pumping, , diet, and supplements. Continues to make a total of 4-6 oz in 24 hour period. Supply has not changed despite everything I have been trying . also had revision of tongue and lip ties, making latch more comfortable, but no change in supply. Mom continues to give breast milk through informal milk sharing with friend from [place]. Baby is happy, thriving weighing 15-3 today. Mom states baby started being very fussy at breast yesterday, off and on game. Mom thought milk might taste different for him as well as supply drop as she was barely obtaining 0.5 oz when pumped. States menses returned this AM. Discussed returning cycle and impact on supply. Pt states had labs drawn for estrogen, prolactin levels but not able to find results at this time to discuss implication /impact on supply. Pt looking for concrete answers for reason why making limited supply. Validated and discussed that reasons may not be noted and/or next might be normal as expected. Verbalized understanding. Also requests information for pelvic floor therapy as wants to spread my pelvis to accommodate a baby next . Discussed anatomy and possible reasons would not deliver (CPD, head position). Requests x-ray to tell if pelvis is the right shape to deliver a baby or not. Advised that Dr Alcantara would be an appropriate person to speak too as he is now her OB-[employer] FORESTER. All questions answered as able regarding V-MASHA vs repeat C/S Pt aware that no done at this facility and why. Discussed use of pelvic floor therapy for incontinence bladder, stool, prolapse, or incisional discomfort, regaining muscle function etc. Verbalized understanding. Loretta and mom leave for home, states feels validated with concerns and with reach out to PCP for further discussion on these topics.
== END 2025-01-27 17:01 | disposition home or self-care (01) ==
LOC: FBCO 08:09
PROVIDERS: Visit Provider Obstetrics & Gynecology
DX: Z39.1 Encounter for care and examination of lactating mother (principal)